=== PATIENT | male | born 1950 | race Caucasian/White ===

== ENCOUNTER 2024-05-03 09:33 | Outpatient (AMB) | payer OTHER, SELFPAY ==
[2024-05-03 09:36] VITALS: BP 110/70; PULSE 70; O2SAT 96; BMI 25.4
--- NOTE | 2024-05-03 09:36 | MHC.PC.OV ---
Vital Signs 05/03/24 09:36 Height 5 ft 9 in Weight 172 lb 0.4 oz BMI 25.4 BP 110/70 Blood Pressure Location Lt brachial Position Sitting Pulse 70 Pulse Source Pulse Oximeter Pulse Oximetry (%) 96 Oxygen Delivery Method Room Air Intake Visit Reasons: establish care Allergies No Known Allergies Allergy (Verified 05/03/24 09:54) Medication List - Last Reconciled 05/03/24 by Nichelle Quiñones PA-C aspirin 81 mg PO DAILY atorvastatin 80 mg PO BEDTIME bupropion HCl XL 300 mg PO DAILY dapagliflozin propanediol (Farxiga) 10 mg PO DAILY fluticasone propionate 50 mcg/actuation 1 spray intranasal DAILY leflunomide 10 mg PO DAILY levothyroxine 50 mcg PO DAILY metoprolol succinate ER 25 mg PO DAILY omeprazole magnesium (Prilosec OTC) 20 mg PO DAILY sacubitril-valsartan 49-51 mg (Entresto) 1 tab PO BID sertraline 200 mg PO DAILY ticagrelor (Brilinta) 90 mg PO BID Tobacco use date assessed: 05/03/24 Fall risk assessment: No Falls in past year Last assessed Fall Risk: 05/03/24 Dental Screening Dental Screen Date: 05/03/24 Did you have a dental visit in the last 12 months?: Yes Did you have a dental problem in the last 6 months where you did not have access to dental care?: No Was dental information given to patient?: Patient has dentist HPI establish care HPI Details 73-year-old female coming to the office with the 1st time. Patient was previously being seen by PCP in [facility] where he used to reside. Patient recently moved to [place]. He had a heart attack in February and has been following with [facility] Cardiology status post stent placement. He will be seeing them again on and has had blood work completed by their office. He mentions he has a history of rheumatoid arthritis and has chronic left knee osteoarthritis and previously received gel injections for this concern as well as physical therapy. He is interested in repeat injections and possible replacement. 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 He had a colonoscopy with endoscopy 4 years ago and was advised to follow up in 10 years. He also has a history of psoriasis which he uses steroid creams for. [facility] Surgical History S/P coronary artery stent placement Family History Sister Cancer Social History Housing: House Patient Tobacco Use Status: Former Tobacco user Tobacco use type: Cigarette service: No Current occupational status: retired Cognitive needs: No Hearing needs: No Vision needs: No Questionnaire PHQ-9 Over the last 2 weeks, how often have you been bothered by any of the following problems? 1. Little interest or pleasure in doing things: not at all 2. Feeling down, depressed, or hopeless: not at all 3. Trouble falling or staying asleep, or sleeping too much: not at all 4. Feeling tired or having little energy: not at all 5. Poor appetite or overeating: not at all 6. Feeling bad about yourself - or that you are a failure or have let yourself or your family down: not at all 7. Trouble concentrating on things, such as reading the newspaper or watching television: not at all 8. Moving or speaking so slowly that other people could have noticed. Or the opposite - being so fidgety or restless that you have been moving around a lot more than usual: not at all 9. Thoughts that you would be better off or of hurting yourself in some way: not at all Total score: 0 Depression Screening Interpretation: Negative Depression Screening Done: Yes 82522 - PHQ-9 Billing: Yes Source: Developed by Drs. Jordan Londono, Claudia Quezada, Gilberto Bruno and colleagues, with an educational tariq from [employer]. Thrive Questionnaire I am a: Patient What is your living situation today?: I have a steady place to live Within the past 12 months, did the food you bought not last and you didn't have the money to get more?: Never true Within the past 12 months, did you worry whether your food would run out before you got money to buy more?: Never true Do you have trouble paying for medicines?: No Do you have trouble getting transportation to medical appointments?: No Do you have trouble paying your heating and electricity bill?: No Do you have trouble taking care of your child, family member or friend?: No Do you have trouble with day-to-day activities such as bathing, preparing meals, shopping, managing finances, etc.?: No Are you currently unemployed and looking for a job?: No Are you interested in more education?: No Please select the resources that you would like help with: None Currently or been in a relationship where the following occur: No concerns reported THRIVE Score: 0 AUDIT C Alcohol Use Questionnaire (AUDIT-C) 1. How often do you have a drink containing alcohol?: Never 3. How often do you have six or more drinks on one occasion?: Never Total Score: 0 AUGUSTO-7 AMB Questionnaire AUGUSTO-7 Date AUGUSTO - 7 assessed: 05/03/24 Feeling nervous, anxious, or on edge: 0 = Not at all Not being able to stop or control worryin = Not at all Worrying too much about different things: 0 = Not at all Trouble relaxin = Not at all Being so restless that it is hard to sit still: 0 = Not at all Becoming easily annoyed or irritable: 0 = Not at all Feeling afraid as if something awful might happen: 0 = Not at all Total AUGUSTO-7 score (0-4 normal; 5-9 mild; 10-14 moderate; 15-21 severe): 0 Source: Developed by Drs. Jordan Londono, Claudia Quezada, Gilberto Bruno and colleagues, with an educational tariq from [employer]. AUGUSTO-7 Assessment Billing AUGUSTO-7 Assessment Tool: AUGUSTO-7 Assessment 38842 Review of Systems Const Denies body aches, Denies fatigue, Denies fever(s), Denies frequent falls, Denies headache(s) and Denies weakness Eyes Reports no additional complaints and Denies change in vision ENT Reports Normal hearing present, Denies dysphagia, Denies dizziness, Denies facial pain, Denies headache(s), Denies nasal congestion and Denies odynophagia Card Denies chest pain, Denies syncope, Denies irregular heart rhythm, Denies leg edema, Denies lightheadedness and Denies dyspnea Resp Denies cough and Denies dyspnea GI Denies constipation, Denies dysphagia, Denies dyspepsia, Denies diarrhea, Denies nausea, Denies odynophagia and Denies vomiting Denies urinary frequency, Denies dysuria, Denies urinary hesitancy and Denies urinary urgency Musc Denies back pain and Denies myalgias Skin/Breast Reports system reviewed and no additional complaints, except as documented Neuro Reports Normal hearing present, Denies dizziness, Denies syncope, Denies frequent falls, Denies headache(s) and Denies weakness Psych Reports no additional complaints Endo Denies fatigue Physical exam (Primary Care) Vital Signs: Last Vital Signs Pulse 70 05/03/24 09:36 BP 110/70 05/03/24 09:36 Pulse Ox 96 05/03/24 09:36 Oxygen Delivery Method Room Air 05/03/24 09:36 BMI result Body Mass Index 25.4 Tobacco/Smoking Status: Tobacco use Status Tobacco use date assessed 05/03/24 05/03/24 09:48 Patient Tobacco Use Status Former Tobacco user 05/03/24 09:48 Tobacco use type Cigarette 05/03/24 09:48 PHQ-9: PHQ-9 Score PHQ-9: Total score 0 05/03/24 09:58 Depression Screening Interpretation: Negative Currently or been in a relationship where the following occur: No concerns reported Const General: cooperative, healthy appearing, comfortable and no acute distress Orientation/consciousness: patient oriented x3 HENMT Head: Yes normocephalic Ears: hearing grossly normal bilaterally General nose exam: Normal external nose present Eyes General: appearance normal, both eyes and all related structures Conjunctivae: conjunctivae normal Neck Neck: Yes full ROM and Yes no lymphadenopathy Resp Effort & Inspection: normal respiratory effort Auscultation: clear to auscultation bilaterally, no crackles, no rales, no rhonchi and no wheezes Cardio Rate: regular rate Rhythm: regular rhythm Skin General skin exam: no rashes or lesions noted Neuro General: patient oriented x3 Cranial nerves: Yes Normal hearing present Gait exam (Neuro): Normal gait present Extrem General: Yes normal to inspection, Yes full ROM and No edema Psych Affect: normal affect Attitude: cooperative Insight: Good insight present (Psych) Judgement: Good judgement present (Psych) Coding Level of Care Code New Pt Level 4 (77765) Diagnoses Myocardial infarction I21.9 Rheumatoid arthritis M06.9 Hypercholesterolemia E78.00 Hypertension I10 Hypothyroid E03.9 Depression F32.A Hallux valgus (acquired) M20.10 Bilateral foot pain M79.671; M79.672 Left knee pain M25.562 Psoriasis L40.9 Additional Codes AUGUSTO-7 Assessment Billing - AUGUSTO-7 Assessment Tool: AUGUSTO-7 Assessment 03187 ([id number]) PHQ-9 - 40790 - PHQ-9 Billing: Yes ([id number]) Assessment & Plan Assessment & Plan (1) Myocardial infarction: Comment: January 2024 with stent placement Code(s): I21.9 - Acute myocardial infarction, unspecified Category: Medical Plan: Currently following with [facility] Cardiology and being seen this . We will request these notes continue on current medication and continue with aggressive cholesterol, blood pressure and blood sugar control. (2) Rheumatoid arthritis: Code(s): M06.9 - Rheumatoid arthritis, unspecified Category: Medical Plan: Referral placed to Rheumatology for continuation of care presently on leflunomide. (3) Hypercholesterolemia: Code(s): E78.00 - Pure hypercholesterolemia, unspecified Category: Medical Plan: Avoid foods that are high in cholesterol such as red meat, fried foods, eggs and baked goods. Triglyceride goal of less than 150 and LDL goal of less than 70. Continue on atorvastatin 80 (4) Hypertension: Code(s): I10 - Essential (primary) hypertension Category: Medical Plan: Continue on current blood pressure medication. Avoid salt intake and encourage healthy diet and regular exercise. (5) Hypothyroid: Code(s): E03.9 - Hypothyroidism, unspecified Category: Medical Plan: We will continue to monitor thyroid labs and presently on levothyroxine 50 mcg (6) Depression: Code(s): F32.A - Depression, unspecified Category: Medical Plan: History of depression and anxiety feels symptoms are well managed at this time currently on sertraline 200 mg and Wellbutrin 300 mg. (7) Hallux valgus (acquired): Code(s): M20.10 - Hallux valgus (acquired), unspecified foot Category: Medical Plan: Referral placed to Podiatry for pain management and possible surgical correction. Wears custom orthotics. (8) Bilateral foot pain: Code(s): M79.671 - Pain in right foot; M79.672 - Pain in left foot Category: Medical Plan: Wears custom orthotics and advised to follow up with Podiatry. (9) Left knee pain: Code(s): M25.562 - Pain in left knee Category: Medical Plan: Patient having chronic left knee pain worsening over the last several months. History of gel injections and physical therapy with very mild improvement. Referral placed to Orthopedics and ordered for left knee x-ray. (10) Psoriasis: Code(s): L40.9 - Psoriasis, unspecified Category: Medical Plan: Patient has a history of psoriasis and uses steroid creams. Declines Dermatology at this time. Plan This note was constructed using voice recognition software. While every effort has been made to ensure accuracy and planting machine crewman, still areas may have been included sometimes these areas may affect the content or meeting of the given symptoms. Total time spent caring for the patient today was 30 minutes. This includes time spent before the visit reviewing the chart, time spent during the visit, and time spent after the visit and documentation. Orders: Orders XR knee LT 3V Today M25.562 - Pain in left knee Referrals Podiatry Referral M20.10 - Hallux valgus (acquired), unspecified foot, M79.671 - Pain in right foot, M79.672 - Pain in left foot Orthopedics Referral M25.562 - Pain in left knee Rheumatology Referral M06.9 - Rheumatoid arthritis, unspecified Optometry Referral Z00.00 - Encounter for general adult medical examination without abnormal findings
== END 2024-05-03 10:16 | disposition home or self-care (01) ==
DX: I21.9 Acute myocardial infarction, unspecified (principal); M06.9 Rheumatoid arthritis, unspecified; E78.00 Pure hypercholesterolemia, unspecified; I10 Essential (primary) hypertension; E03.9 Hypothyroidism, unspecified; F32.A Depression, unspecified; M20.10 Hallux valgus (acquired), unspecified foot; M79.671 Pain in right foot; M79.672 Pain in left foot; M25.562 Pain in left knee; L40.9 Psoriasis, unspecified

== ENCOUNTER → 2024-05-03 09:33 | Outpatient (BNVA) | payer MEDICARE, OTHER, SELFPAY | DX: I21.9 Acute myocardial infarction, unspecified (principal); M06.9 Rheumatoid arthritis, unspecified; E78.00 Pure hypercholesterolemia, unspecified; E03.9 Hypothyroidism, unspecified; I10 Essential (primary) hypertension; F32.A Depression, unspecified; M20.10 Hallux valgus (acquired), unspecified foot; L40.9 Psoriasis, unspecified | CPT/HCPCS: 96127; 99202 ==

== ENCOUNTER 2024-05-06 12:19 | Outpatient (REF) | payer OTHER, SELFPAY | END 2024-05-06 12:20 | disposition home or self-care (01) | LOC: HO.XRAY 12:19 | DX: M25.562 Pain in left knee (principal) | CPT/HCPCS: 73562 ==

== ENCOUNTER 2024-05-19 10:08 | Outpatient (REF) | payer MEDICARE, OTHER, SELFPAY | END 2024-05-19 10:09 | disposition home or self-care (01) | LOC: HO.HOSX 10:08 | PROVIDERS: Visit Provider Physician Assistant | DX: M25.562 Pain in left knee (principal); M25.561 Pain in right knee; M17.12 Unilateral primary osteoarthritis, left knee | CPT/HCPCS: 20610; 73565; 99202; J1010; J2003 ==

== ENCOUNTER 2024-05-19 10:44 | Outpatient (AMB) | payer MEDICARE, OTHER, SELFPAY ==
[2024-05-19 11:08] VITALS: BMI 25.4
--- NOTE | 2024-05-19 11:08 | A.OFFVIS_ITS ---
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 He expresses pain and weakness when ambulating and using stairs. He has tried gel injections as well as cortisone injections. Patient states he was going to cardio PT at [facility] but he had to stop due to his knee pain. Denies prior injuries or surgeries to the left knee. Allergies No Known Allergies Allergy (Verified 05/19/24 11:09) Medication List - Last Reconciled 05/19/24 by Yamini Davey PA-C aspirin 81 mg PO DAILY atorvastatin 80 mg PO BEDTIME bupropion HCl XL 300 mg PO DAILY dapagliflozin propanediol (Farxiga) 10 mg PO DAILY fluticasone propionate 50 mcg/actuation 1 spray intranasal DAILY leflunomide 10 mg PO DAILY levothyroxine 50 mcg PO DAILY metoprolol succinate ER 25 mg PO DAILY omeprazole magnesium (Prilosec OTC) 20 mg PO DAILY sacubitril-valsartan 49-51 mg (Entresto) 1 tab PO BID sertraline 200 mg PO DAILY ticagrelor (Brilinta) 90 mg PO BID HPI HPI 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 He denies any left knee injury in the past. He states he has weakness and worsening pain at the anterior aspect or medial aspect of his knee that is aggravated with ambulation and stair use. He has tried gel and cortisone injection in the past. He reports he was going to ?cardio physical therapy? at [facility] but he had to stop due to his knee pain. He does not have a history of diabetes. He also had a heart attack in January, underwent a STENT placement and is currently in cardiac rehab. [facility] Surgical History S/P coronary artery stent placement Family History Sister Cancer Social History Housing: House Patient Tobacco Use Status: Former Tobacco user Tobacco use type: Cigarette service: No Current occupational status: retired Cognitive needs: No Hearing needs: No Vision needs: No Review of Systems Const All systems reviewed & are unremarkable except as noted in HPI and below Physical Exam Vital Signs: BMI result Body Mass Index 25.4 Const General: cooperative, healthy appearing, comfortable, no acute distress, well developed and alert Orientation/consciousness: patient oriented x3 HEENT Head: Yes normal to inspection, Yes normocephalic and Yes atraumatic Eyes General: appearance normal, both eyes and all related structures Resp Effort & Inspection: normal respiratory effort and able to speak in complete sentences Cardio Rate: regular rate Peripheral pulses: Peripheral pulses 2+ throughout GI Palpation (GI): Soft to palpation Skin Lesions: no lesions Rashes: no rashes Neuro General: patient oriented x3 Extrem Other: Left knee: Skin intact, no erythema or joint effusion. Tenderness along the medial joint line. Full ROM with crepitus. Negative Daniel?s. No ligamentous laxity. NVI. Office Procedures AMB Joint Injection/Aspiration Joint Injection/Aspiration Primary Site: left knee Prep: site was prepped using aseptic technique, ethochloride spray was applied and injection warnings given Injected: 80 mg of, DepoMedrol, with 8 mL of, 1% plain lidocaine and in the joint Approach Used: anterolateral Procedure: The patient tolerated the procedure well and there was some relief with the local anesthesia Coding 86687 - Glenohumeral/Tronchanteric Bursa/Intraarticular Procedure code (CPT) selection complete Results Reviewed Results Reviewed: Xrays were obtained in the office today and personally reviewed by me of the left knee show medial and PF compartment oa Assessment & Plan Assessment & Plan (1) Osteoarthritis of left knee: Code(s): M17.12 - Unilateral primary osteoarthritis, left knee Category: Medical Plan We discussed options today, which include steroid injection. The patient did consent to move forward with the left knee injection, which was tolerated well. I recommended rest, ice, and elevation and OTC anti-inflammatories as needed for discomfort. We will also get him approved for gel injection. If symptoms persist or worsens over the next 6-8 weeks, patient will contact the office as we did briefly discuss TKA, which he does feel he will proceed with at some point, otherwise he will follow-up as needed. Orders: Orders XR knee standing BI Today M25.561 - Pain in right knee, M25.562 - Pain in left knee Patient Instructions: Scribed for Yamini Davey PA-C, by Nicholas Brewer biomedical instrument technician, on 05/19/2024 at 11:00 AM EST.? I, Yamini Davey PA-C, have personally reviewed and agree with the information entered by the scribe. Coding Level of Care Code New Pt Level 3 (97275) Complex EM visit Add On G2211 Diagnoses Osteoarthritis of left knee M17.12 CPT Codes Coding - Joint 7: 66251 - Glenohumeral/Tronchanteric Bursa/Intraarticular ([id number])
== END 2024-05-19 11:38 | disposition home or self-care (01) ==
PROVIDERS: Visit Provider Physician Assistant
DX: M17.12 Unilateral primary osteoarthritis, left knee (principal)
CPT/HCPCS: 20610; 99203

== ENCOUNTER 2024-06-29 09:46 | Outpatient (AMB) | payer MEDICARE, OTHER, SELFPAY ==
--- NOTE | 2024-06-29 09:48 | A.OFFVIS_ITS ---
Vital Signs 06/29/24 09:52 Height 5 ft 9 in Weight 172 lb BMI 25.4 Intake Visit Reasons: INJ LT knee Durolane injection Intake Note: Perez is a 74 year old male who presents today for a left knee Durolane injection. Allergies No Known Allergies Allergy (Verified 06/29/24 09:55) HPI HPI INJ LT knee Durolane injection: Details: 74-year-old gentleman presents to the office today for left knee drilling injection. He mentions he continues to have significant limitations in the left knee which is interfering with his ability to perform daily activities. [facility] Surgical History S/P coronary artery stent placement Family History Sister Cancer Social History Housing: House Patient Tobacco Use Status: Former Tobacco user Tobacco use type: Cigarette service: No Current occupational status: retired Cognitive needs: No Hearing needs: No Vision needs: No Review of Systems Const All systems reviewed & are unremarkable except as noted in HPI and below Physical Exam Vital Signs: BMI result Body Mass Index 25.4 Const General: cooperative, healthy appearing, comfortable, no acute distress, well developed and alert Orientation/consciousness: patient oriented x3 HEENT Head: Yes normal to inspection, Yes normocephalic and Yes atraumatic Eyes General: appearance normal, both eyes and all related structures Resp Effort & Inspection: normal respiratory effort and able to speak in complete sentences Cardio Rate: regular rate Peripheral pulses: Peripheral pulses 2+ throughout GI Palpation (GI): Soft to palpation Skin Lesions: no lesions Rashes: no rashes Neuro General: patient oriented x3 Extrem Other: Left knee: Skin intact, no erythema or joint effusion. Tenderness along the medial joint line. Full ROM with crepitus. Negative Daniel?s. No ligamentous laxity. NVI. Office Procedures AMB Joint Injection/Aspiration Joint Injection/Aspiration Details: Durolane Primary Site: left knee Prep: site was prepped using aseptic technique, ethochloride spray was applied and injection warnings given Injected: in the joint Approach Used: anterolateral Procedure: The patient tolerated the procedure well Coding 20700 - Glenohumeral/Tronchanteric Bursa/Intraarticular Procedure code (CPT) selection complete Assessment & Plan Assessment & Plan (1) Osteoarthritis of left knee: Code(s): M17.12 - Unilateral primary osteoarthritis, left knee Category: Medical Plan: Left knee was injected today which the patient tolerated well. He will increase activities as tolerated as symptoms allow. He is interested in pursuing left total knee arthroplasty. I discussed moving forward we will have our nurse navigator reach out to him to discuss and have him meet with Dr. Crum. All questions answered. Coding Level of Care Code Est Pt Level 3 (09000) Complex EM visit Add On G2211 Diagnoses Osteoarthritis of left knee M17.12 CPT Codes Coding - Joint 7: 85905 - Glenohumeral/Tronchanteric Bursa/Intraarticular ([id number])
[2024-06-29 09:52] VITALS: BMI 25.4
== END 2024-06-29 10:08 | disposition home or self-care (01) ==
PROVIDERS: Visit Provider Physician Assistant
DX: M17.12 Unilateral primary osteoarthritis, left knee (principal)
CPT/HCPCS: 20610; 99213; G2211

== ENCOUNTER → 2024-06-29 09:46 | Outpatient (BNVA) | payer MEDICARE, OTHER, SELFPAY | PROVIDERS: Visit Provider Physician Assistant | DX: M17.12 Unilateral primary osteoarthritis, left knee (principal) | CPT/HCPCS: 20610; 99212; J7318 ==

== ENCOUNTER 2024-08-03 07:58 | Outpatient (AMB) | payer MEDICARE, OTHER, SELFPAY ==
--- NOTE | 2024-08-03 08:12 | MHC.PC.OV ---
Vital Signs 08/03/24 08:14 Height 5 ft 9 in Weight 172 lb 2 oz BMI 25.4 BP 120/70 Blood Pressure Location Lt brachial Position Sitting Temp 97.1 F Temp Source Temporal Artery Scan Intake Visit Reasons: f/u blood work/ HTN Intake Note: Patient is here to follow up on HTN. 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 Required: No Ruby Rails Developer: Not Required per policy Accompanied by: Self / Same As Patient Allergies No Known Allergies Allergy (Verified 08/03/24 08:14) Medication List - Last Reconciled 08/03/24 by Nichelle Quiñones PA-C aspirin 81 mg PO DAILY atorvastatin 80 mg PO BEDTIME bupropion HCl XL 300 mg PO DAILY dapagliflozin propanediol (Farxiga) 10 mg PO DAILY fluticasone propionate 50 mcg/actuation 1 spray intranasal DAILY leflunomide 10 mg PO DAILY levothyroxine 50 mcg PO DAILY metoprolol succinate ER 200 mg PO DAILY omeprazole magnesium (Prilosec OTC) 20 mg PO DAILY sacubitril-valsartan 97-103 mg (Entresto) 1 tab PO BID sertraline 200 mg PO DAILY spironolactone 12.5 mg PO DAILY ticagrelor (Brilinta) 90 mg PO BID Tobacco use date assessed: 08/03/24 Fall risk assessment: No Falls in past year Last assessed Fall Risk: 08/03/24 Dental Screening Dental Screen Date: 08/03/24 Did you have a dental visit in the last 12 months?: Yes Did you have a dental problem in the last 6 months where you did not have access to dental care?: No Was dental information given to patient?: Patient has dentist HPI f/u blood work/ HTN HPI Details 74-year-old male with past medical history of myocardial infarction, depression, hypothyroid, hypertension, hypercholesterolemia, rheumatoid arthritis and psoriasis last seen 04/2024 coming in for follow up. In review of the notes, patient was seen by [facility] 06/2024 for left knee osteoarthritis had an injection and scheduled to discuss possible left knee replacement. Patient was last seen by Cardiology 03/23/2024 started on Farxiga 10 mg daily and Entresto twice daily. Presenting with a follow-up for management of heart failure and associated chronic conditions. Heart failure medications were titrated to maximum dosage last seen in March. Awaiting further cardiology assessment. Stable weight at 172 pounds over recent months, daily weight monitoring is consistent. Occasional orthopnea reported but generally no significant dyspnea or chest pain. Anxiety and depression symptoms are stable with the current psychiatric medication, with patient-reported mood improvement. [facility] Surgical History S/P coronary artery stent placement Family History Sister Cancer Social History Housing: House Alcohol intake: never Patient Tobacco Use Status: Former Tobacco user Tobacco use type: Cigarette e-Cigarette/Vaping Use: Never Used Second Hand Smoke Exposure: Yes service: No Current occupational status: retired Cognitive needs: Yes (cane) Hearing needs: No Vision needs: Yes (Glasses) Questionnaire PHQ-9 Over the last 2 weeks, how often have you been bothered by any of the following problems? 1. Little interest or pleasure in doing things: not at all 2. Feeling down, depressed, or hopeless: not at all 3. Trouble falling or staying asleep, or sleeping too much: not at all 4. Feeling tired or having little energy: not at all 5. Poor appetite or overeating: not at all 6. Feeling bad about yourself - or that you are a failure or have let yourself or your family down: not at all 7. Trouble concentrating on things, such as reading the newspaper or watching television: not at all 8. Moving or speaking so slowly that other people could have noticed. Or the opposite - being so fidgety or restless that you have been moving around a lot more than usual: not at all 9. Thoughts that you would be better off or of hurting yourself in some way: not at all Total score: 0 Depression Screening Interpretation: Negative Depression Screening Done: Yes Source: Developed by Drs. Jordan Londono, Claudia Quezada, Gilberto Bruno and colleagues, with an educational tariq from [employer]. Thrive Questionnaire Date Thrive assessed: 08/03/24 I am a: Patient What is your living situation today?: I have a steady place to live Within the past 12 months, did the food you bought not last and you didn't have the money to get more?: Never true Within the past 12 months, did you worry whether your food would run out before you got money to buy more?: Never true Do you have trouble paying for medicines?: No Do you have trouble getting transportation to medical appointments?: No Do you have trouble paying your heating and electricity bill?: No Do you have trouble taking care of your child, family member or friend?: No Do you have trouble with day-to-day activities such as bathing, preparing meals, shopping, managing finances, etc.?: No Are you currently unemployed and looking for a job?: No Are you interested in more education?: No Please select the resources that you would like help with: None Currently or been in a relationship where the following occur: No concerns reported THRIVE Score: 0 AUDIT C Alcohol Use Questionnaire (AUDIT-C) 1. How often do you have a drink containing alcohol?: Never Total Score: 0 AUGUSTO-7 AMB Questionnaire AUGUSTO-7 Date AUGUSTO - 7 assessed: 08/03/24 Feeling nervous, anxious, or on edge: 0 = Not at all Not being able to stop or control worryin = Not at all Worrying too much about different things: 0 = Not at all Trouble relaxin = Not at all Being so restless that it is hard to sit still: 0 = Not at all Becoming easily annoyed or irritable: 0 = Not at all Feeling afraid as if something awful might happen: 0 = Not at all Total AUGUSTO-7 score (0-4 normal; 5-9 mild; 10-14 moderate; 15-21 severe): 0 Source: Developed by Drs. Jordan Londono, Claudia Quezada, Gilberto Bruno and colleagues, with an educational tariq from [employer]. Review of Systems Const Denies body aches, Denies chills, Denies fever(s), Denies headache(s) and Denies poor appetite Eyes Reports no additional complaints ENT Denies dizziness and Denies headache(s) Card Denies chest pain, Denies syncope, Denies edema, Denies irregular heart rhythm, Denies lightheadedness and Denies dyspnea Resp Denies cough and Denies dyspnea GI Denies abdominal pain, Denies constipation, Denies diarrhea, Denies nausea and Denies vomiting Reports no additional complaints Musc Reports no additional complaints and Denies abnormal gait Skin/Breast Reports system reviewed and no additional complaints, except as documented Neuro Denies abnormal gait, Denies dizziness, Denies syncope and Denies headache(s) Psych Reports no additional complaints Physical exam (Primary Care) Tobacco/Smoking Status: Tobacco use Status Tobacco use date assessed 05/03/24 08/03/24 08:12 Patient Tobacco Use Status Former Tobacco user 08/03/24 08:12 Tobacco use type Cigarette 08/03/24 08:12 Depression Screening Interpretation: Negative Thrive Assessment: Date of Thrive Assessment Date Thrive assessed 08/03/24 08/03/24 08:12 Currently or been in a relationship where the following occur: No concerns reported Const General: cooperative, healthy appearing, comfortable and no acute distress Orientation/consciousness: patient oriented x3 HENMT Head: Yes normocephalic Ears: hearing grossly normal bilaterally General nose exam: Normal external nose present Eyes General: appearance normal, both eyes and all related structures Conjunctivae: conjunctivae normal Neck Neck: Yes full ROM and Yes no lymphadenopathy Resp Effort & Inspection: normal respiratory effort Auscultation: clear to auscultation bilaterally, no crackles, no rales, no rhonchi and no wheezes Cardio Rate: regular rate Rhythm: regular rhythm Skin General skin exam: no rashes or lesions noted Neuro General: patient oriented x3 Gait exam (Neuro): Normal gait present Extrem General: Yes normal to inspection, Yes full ROM and No edema Psych Affect: normal affect Attitude: cooperative Insight: Good insight present (Psych) Judgement: Good judgement present (Psych) Coding Level of Care Code Est Pt Level 3 (53940) Diagnoses Myocardial infarction I21.9 Osteoarthritis of left knee M17.12 Hypercholesterolemia E78.00 Hypertension I10 Hypothyroid E03.9 Depression F32.A Rheumatoid arthritis M06.9 Heart failure I50.9 Assessment & Plan Assessment & Plan (1) Myocardial infarction: Comment: inferoposterior RI 01/21/2024 status post PCI of the distal RCA on 01/22/2024 with daily in the distal RCA extending into the proximal PDA Code(s): I21.9 - Acute myocardial infarction, unspecified Category: Medical Plan: Currently following with [facility] advised to continue on aspirin indefinitely and ticagrelor until January 2025. Continue with aggressive blood pressure management with Entresto and metoprolol, cholesterol management with atorvastatin 80 mg with LDL goal less than 70. Patient was also started on Farxiga for management of heart failure. (2) Osteoarthritis of left knee: Code(s): M17.12 - Unilateral primary osteoarthritis, left knee Category: Medical Plan: Patient currently following with [facility] having injections of the knee and having discussion with Dr. Crum about possible total knee replacement. (3) Hypercholesterolemia: Code(s): E78.00 - Pure hypercholesterolemia, unspecified Category: Medical Plan: Avoid foods that are high in cholesterol such as red meat, fried foods, eggs and baked goods. Triglyceride goal of less than 150 and LDL goal of less than 70. Continue on atorvastatin 80 mg. Ordered for updated blood work (4) Hypertension: Code(s): I10 - Essential (primary) hypertension Category: Medical Plan: Continue on current blood pressure medication. Avoid salt intake and encourage healthy diet and regular exercise. Per last cardiology note patient to continue on metoprolol and Entresto (5) Hypothyroid: Code(s): E03.9 - Hypothyroidism, unspecified Category: Medical Plan: On levothyroxine 50 mcg continue to monitor blood work. (6) Depression: Code(s): F32.A - Depression, unspecified Category: Medical Plan: Feels symptoms are well managed with sertraline and Wellbutrin (7) Rheumatoid arthritis: Code(s): M06.9 - Rheumatoid arthritis, unspecified Category: Medical Plan: Has a appointment in September with Rheumatology currently on leflunomide (8) Heart failure: Code(s): I50.9 - Heart failure, unspecified Category: Medical Plan: As advised by Cardiology, Farxiga 10 mg daily, Entresto added to regimen, spironolactone in the morning encouraged low potassium diet and daily weights. Plan The patient's management plan includes ongoing monitoring of heart failure stability, with maximum medication titration achieved; a cardiology appointment should be followed for echocardiogram assessment. Patient was informed and verbally consented to the use of an ambient scribe for clinic note documentation during this visit. This note was constructed using voice recognition software. While every effort has been made to ensure accuracy and assembler truck trailer, still areas may have been included sometimes these areas may affect the content or meeting of the given symptoms. Total time spent caring for the patient today was 20 minutes. This includes time spent before the visit reviewing the chart, time spent during the visit, and time spent after the visit and documentation. Orders: Orders Comprehensive Met. Panel Today I21.9 - Acute myocardial infarction, unspecified, Z00.00 - Encounter for general adult medical examination without abnormal findings TSH reflex Free T4 Today I21.9 - Acute myocardial infarction, unspecified, Z00.00 - Encounter for general adult medical examination without abnormal findings Hemoglobin A1c Today E11.65 - Type 2 diabetes mellitus with hyperglycemia, I21.9 - Acute myocardial infarction, unspecified Free T4 (Free Thyroxine) Today I21.9 - Acute myocardial infarction, unspecified, Z00.00 - Encounter for general adult medical examination without abnormal findings Complete Blood Count Auto Diff Today I21.9 - Acute myocardial infarction, unspecified, Z00.00 - Encounter for general adult medical examination without abnormal findings Lipid Panel Today E78.00 - Pure hypercholesterolemia, unspecified, I21.9 - Acute myocardial infarction, unspecified Vitamin B12 and Folate Today I21.9 - Acute myocardial infarction, unspecified, Z00.00 - Encounter for general adult medical examination without abnormal findings Vitamin D 25-OH Total Today I21.9 - Acute myocardial infarction, unspecified, Z00.00 - Encounter for general adult medical examination without abnormal findings
[2024-08-03 08:14] VITALS: BP 120/70; TEMP 36.2; BMI 25.4
== END 2024-08-03 08:42 | disposition home or self-care (01) ==
DX: M06.9 Rheumatoid arthritis, unspecified (principal); I11.0 Hypertensive heart disease with heart failure; I50.9 Heart failure, unspecified; I25.2 Old myocardial infarction; M17.12 Unilateral primary osteoarthritis, left knee; E78.00 Pure hypercholesterolemia, unspecified; E03.9 Hypothyroidism, unspecified; F32.A Depression, unspecified

== ENCOUNTER → 2024-08-03 07:58 | Outpatient (BNVA) | payer MEDICARE, OTHER, SELFPAY | DX: I21.9 Acute myocardial infarction, unspecified (principal); M17.12 Unilateral primary osteoarthritis, left knee; E78.00 Pure hypercholesterolemia, unspecified; F32.A Depression, unspecified; E03.9 Hypothyroidism, unspecified; M06.9 Rheumatoid arthritis, unspecified; I11.0 Hypertensive heart disease with heart failure; I50.9 Heart failure, unspecified | CPT/HCPCS: 99212 ==

== ENCOUNTER 2024-08-11 09:39 | Outpatient (AMB) | payer MEDICARE, OTHER, SELFPAY ==
--- NOTE | 2024-08-11 09:41 | A.OFFVIS_ITS ---
Vital Signs 08/11/24 09:42 Height 5 ft 9 in Weight 172 lb BMI 25.4 Intake Visit Reasons: L TKA Discussion: L Knee Durolane Inj 06/29/24 TM Intake Note: Perez is a 74 year old male who presents today to discuss Left Total Knee Arthroplasty. Patient was last seen with Yamini Davey who injected the Left Knee with Durolane on 06/29/24. Patient reports that he did have some mild relief with the gel injection but he is continuing to have difficulty with ambulation and pain. He taked Tylenol PRN pain but this is not providing adequate relief. Allergies No Known Allergies Allergy (Verified 08/03/24 08:14) HPI HPI L TKA Discussion: L Knee Durolane Inj 06/29/24 TM: Details: This is a 74 yo M with left knee OA. He is unable to walk more than 50 feet wihtout pain and a worsening limp. He wants to ba able to walk Comfortably. He wants to be able to walk as a form of exercise for both his mental and physical health. He is unable to do that. He uses a cane. He has been having problems for years. He has done physical therapy he has had gel injections and he has had steroid injections but he is still debilitated. He did have a heart attack in January of 2024. His seed district sales manager told him that may consider surgery no sooner than 6 months after his coronary event. He takes aspirin as a blood thinner but otherwise no anticoagulation. [facility] Surgical History S/P coronary artery stent placement Family History Sister Cancer Social History Housing: House Alcohol intake: never Patient Tobacco Use Status: Former Tobacco user Tobacco use type: Cigarette e-Cigarette/Vaping Use: Never Used Second Hand Smoke Exposure: Yes service: No Current occupational status: retired Cognitive needs: Yes (cane) Hearing needs: No Vision needs: Yes (Glasses) Physical Exam Vital Signs: BMI result Body Mass Index 25.4 Extrem Other: 0-125 varus knee wiht 1+ varus instability and ttp medial joint line. +gait antalgia Results Reviewed Results Reviewed: I personally reviewed relevant radiographs. Severe varus pattern knee OA on the left. Assessment & Plan Assessment & Plan (1) Osteoarthritis of left knee: Code(s): M17.12 - Unilateral primary osteoarthritis, left knee Category: Medical Plan: This is a 74 yo M who has severe OA of the left knee. He is unable to walk and he has pain with minimal ambulation. He feels limited frustrated that he can not walk even 5 minutes. Conservative management has not helped and I recommend knee replacement. He has history of rheumatoid arthritis and a myocardial infarction approximately 6 months ago. We will obviously need cardiac clearance. Pending that evaluation he is otherwise relatively low risk. I discussed the risks, benefits and alternatives with him including, but not limited to, the risk of infection, blood clots, cardiopulmonary complications, stiffness, need further surgery, pain. He expressed understanding and we will have our nurse navigator reach out and begin the preoperative clearance process. Coding Level of Care Code Est Pt Level 4 (54085) Diagnoses Osteoarthritis of left knee M17.12
[2024-08-11 09:42] VITALS: BMI 25.4
== END 2024-08-11 10:12 | disposition home or self-care (01) ==
PROVIDERS: Visit Provider Orthopaedic Surgery
DX: M17.12 Unilateral primary osteoarthritis, left knee (principal)
CPT/HCPCS: 99214

== ENCOUNTER → 2024-08-11 09:39 | Outpatient (BNVA) | payer MEDICARE, OTHER, SELFPAY | PROVIDERS: Visit Provider Orthopaedic Surgery | DX: M17.12 Unilateral primary osteoarthritis, left knee (principal) | CPT/HCPCS: 99212 ==

== ENCOUNTER 2024-08-16 10:51 | Outpatient (REF) | payer MEDICARE, OTHER, SELFPAY ==
[2024-08-16 11:11] LABS: MANUAL DIFF FLAG NO
[2024-08-16 11:59] LABS: Basophils Percent Auto 0.8 % (0-2); Eosinophils Absolute Auto 0.1 X10*3/uL (0.0-0.4); Eosinophils Percent Auto 2.3 % (0-4); Hematocrit 43.1 % (42.0-52.0); Hemoglobin 14.6 g/dl (14.0-18.0); Imm Gran Abs Auto 0.04 X10*3/uL (0.00-0.03); Imm Gran Pct Auto 0.8 % (0.0-0.4); Lymphocytes Absolute Auto 0.6 X10*3/uL (1.2-4.9); Lymphocytes Percent Auto 13.5 % (20-40); Mean Corpuscular HGB Conc 33.9 g/dl (31.0-36.0); Mean Corpuscular Hemoglobin 31.1 pg (27.0-33.0); Mean Corpuscular Volume 91.7 fL (80.0-98.0); Mean Platelet Volume 12.5 fL (9.4-12.4); Monocytes Absolute Auto 0.4 X10*3/uL (0.1-1.2); Monocytes Percent Auto 7.4 % (2-11); Neutrophils Absolute Auto 3.6 x10*3/uL (2.0-8.3); Neutrophils Percent Auto 75.2 % (45-73); Platelet Count 127 X10*3/uL (160-400); Red Cell Distribution Width 16.6 % (11.0-16.0); White Blood Count 4.7 X10*3/uL (4.8-10.8)
[2024-08-16 12:33] LABS: Estimated Average Glucose 103 mg/dL; Hemoglobin A1C 129.4259 umol/L; Hemoglobin A1c % 5.2 % (<6.0)
[2024-08-16 12:38] LABS: Alanine Aminotransferase 26 U/L (0-40); Albumin Level 4.3 g/dL (3.5-5.0); Alkaline Phosphatase 58 U/L (39-117); Anion Gap 12 (12-20); Aspartate Amino Transferase 26 U/L (5-37); Bilirubin Total 0.7 mg/dL (0.0-1.0); Blood Urea Nitrogen 15 mg/dL (9-16); Calcium 9.1 mg/dL (8.4-10.2); Carbon Dioxide 27 mmol/L (22-29); Chloride 101 mmol/L (96-108); Cholesterol 95 mg/dL (<200); Estimated Glomerular Filt Rate > 60; Free T4 (Free Thyroxine) 0.95 ng/dL (0.71-1.85); Glucose Random 91 mg/dL (60-115); HDL Cholesterol 32 mg/dL (>40); LDL Cholesterol Calculated 52 mg/dL (<100); Potassium 4.6 mmol/L (3.3-5.1); Sodium 135 mmol/L (135-145); TSH reflex Free T4 3.07 uIU/mL (0.32-4.0); Total Protein 7.3 g/dL (6.5-8.0); Triglycerides 56 mg/dL (<150); Vitamin D 25-OH Total 46.3 ng/mL (>30)
[2024-08-16 12:51] LABS: Folate 9.3 ng/mL (> or = 4.0); Vitamin B12 877 pg/mL (200-900)
== END 2024-08-16 10:52 | disposition home or self-care (01) ==
LOC: HO.LAB 10:51
DX: Z00.00 Encounter for general adult medical examination without abnormal findings (principal); I21.9 Acute myocardial infarction, unspecified; E78.00 Pure hypercholesterolemia, unspecified; E11.65 Type 2 diabetes mellitus with hyperglycemia
CPT/HCPCS: 36415; 80053; 80061; 82306; 82607; 82746; 83036; 84439; 84443; 85025

== ENCOUNTER 2024-09-06 11:30 | Outpatient (AMB) | payer MEDICARE, OTHER, SELFPAY ==
--- NOTE | 2024-09-06 11:34 | A.OFFPC_ITS ---
Vital Signs 09/06/24 11:38 Height 5 ft 9 in Weight 175 lb BMI 25.8 BP 130/66 Blood Pressure Location Lt brachial Position Sitting Pulse 70 Pulse Source Pulse Oximeter Temp 96.9 F Temp Source Temporal Artery Scan Pulse Oximetry (%) 96 Oxygen Delivery Method Room Air Intake Visit Reasons: L TKA w/Dr. Crum 10/26/24 Intake Note: Patient is here for a Pre-op for L TKA scheduled with Dr Crum on 10/26/24. Sales Performance Analyst Required: No Reliability Manager: Not Required per policy Accompanied by: Self / Same As Patient Allergies No Known Allergies Allergy (Verified 09/06/24 11:39) Medication List - Last Reconciled 09/06/24 by Nichelle Quiñones PA-C aspirin 81 mg PO DAILY atorvastatin 80 mg PO BEDTIME bupropion HCl XL 300 mg PO DAILY dapagliflozin propanediol (Farxiga) 10 mg PO DAILY fluticasone propionate 50 mcg/actuation 1 spray intranasal DAILY leflunomide 10 mg PO DAILY levothyroxine 50 mcg PO DAILY metoprolol succinate ER 200 mg PO DAILY omeprazole magnesium (Prilosec OTC) 20 mg PO DAILY sacubitril-valsartan 97-103 mg (Entresto) 1 tab PO BID sertraline 200 mg PO DAILY spironolactone 12.5 mg PO DAILY ticagrelor (Brilinta) 90 mg PO BID walker Folding Front wheeled walker duration 99 days Tobacco use date assessed: 09/06/24 Fall risk assessment: No Falls in past year Last assessed Fall Risk: 09/06/24 Dental Screening Dental Screen Date: 08/03/24 HPI L TKA w/Dr. Crum 10/26/24 HPI Details 74-year-old male with past medical histo ry of myocardial infarction, depression, hypothyroid, hypertension, hypercholesterolemia, rheumatoid arthritis and psoriasis last seen 07/2024 coming in for preoperative exam.?Patient is scheduled to have left total knee arthroscopy with Dr. Crum 10/26/2024. Heart failure: Currently following the [facility] has a appointment for Cardiology clearance September 27 Hypertension: Well controlled 130/66 presently on Entresto and Metoprolol Patient does have history of [place] 01/2024 following with [facility] cardiology. He has no history of CVA, CHF or DM. [facility] Surgical History S/P coronary artery stent placement Family History Sister Cancer Social History Housing: House Alcohol intake: never Patient Tobacco Use Status: Former Tobacco user Tobacco use type: Cigarette Years Smoked: quit 35 years ago e-Cigarette/Vaping Use: Never Used Second Hand Smoke Exposure: Yes service: No Current occupational status: retired Cognitive needs: Yes (cane) Hearing needs: No Vision needs: Yes (Glasses) Questionnaire Thrive Questionnaire Date Thrive assessed: 08/03/24 AUGUSTO-7 AMB Questionnaire AUGUSTO-7 Date AUGUSTO - 7 assessed: 08/03/24 Source: Developed by Drs. Jordan Londono, Claudia Quezada, Gilberto Bruno and colleagues, with an educational tariq from [employer]. Review of Systems Const Denies body aches, Denies chills, Denies fever(s), Denies headache(s) and Denies poor appetite Eyes Reports no additional complaints ENT Denies dizziness and Denies headache(s) Card Denies chest pain, Denies syncope, Denies edema, Denies irregular heart rhythm, Denies lightheadedness and Denies dyspnea Resp Denies cough and Denies dyspnea GI Denies abdominal pain, Denies diarrhea, Denies nausea and Denies vomiting Reports no additional complaints Musc Details: left knee pain Denies abnormal gait Skin/Breast Reports system reviewed and no additional complaints, except as documented Neuro Denies abnormal gait, Denies dizziness, Denies syncope and Denies headache(s) Psych Reports no additional complaints Physical exam (Primary Care) Tobacco/Smoking Status: Tobacco use Status Tobacco use date assessed 08/03/24 09/06/24 11:36 Patient Tobacco Use Status Former Tobacco user 09/06/24 11:36 Tobacco use type Cigarette 09/06/24 11:36 e-Cigarette/Vaping Use Never Used 09/06/24 11:36 Thrive Assessment: Date of Thrive Assessment Date Thrive assessed 08/03/24 09/06/24 11:36 Const General: cooperative, healthy appearing, comfortable and no acute distress Orientation/consciousness: patient oriented x3 HENMT Head: Yes normocephalic Ears: hearing grossly normal bilaterally General nose exam: Normal external nose present Eyes General: appearance normal, both eyes and all related structures Conjunctivae: conjunctivae normal Neck Neck: Yes full ROM and Yes no lymphadenopathy Resp Effort & Inspection: normal respiratory effort Auscultation: clear to auscultation bilaterally, no crackles, no rales, no rhonchi and no wheezes Cardio Rate: regular rate Rhythm: regular rhythm Skin General skin exam: no rashes or lesions noted Neuro General: patient oriented x3 Gait exam (Neuro): Normal gait present Extrem General: Yes normal to inspection, Yes full ROM and No edema Psych Affect: normal affect Attitude: cooperative Insight: Good insight present (Psych) Judgement: Good judgement present (Psych) Coding Level of Care Code Est Pt Level 4 (00025) Diagnoses Pre-op exam Z01.818 Assessment & Plan Assessment & Plan (1) Pre-op exam: Code(s): Z01.818 - Encounter for other preprocedural examination Category: Medical Plan: Regarding preop clearance, the patient is at moderate-high risk for proposed surgery due to age, comorbidities and history of recent cardiac event. Reviewed with the patient that no surgery is completely free of risk and that this examination is to assist the surgeon in reviewing informed consent. Patient is scheduled to have cardiac clearance September 27. Plan to review cardiology note at that time and will provide clearance via addendum to this note. At this time I have reviewed his most recent blood work and no additional workup is needed. Plan to await cardiology clearance. Plan This note was constructed using voice recognition software. While every effort has been made to ensure accuracy and labor operator, still areas may have been included sometimes these areas may affect the content or meeting of the given symptoms. Total time spent caring for the patient today was 30 minutes. This includes time spent before the visit reviewing the chart, time spent during the visit, and time spent after the visit and documentation. Medications: New triamcinolone acetonide 0.1% 1 appl topical DAILY 30 grams 0RF
[2024-09-06 11:38] VITALS: BP 130/66; PULSE 70; TEMP 36.1; O2SAT 96; BMI 25.8
== END 2024-09-06 12:05 | disposition home or self-care (01) ==
LOC: HO.HMCH 11:30
DX: Z01.818 Encounter for other preprocedural examination (principal)

== ENCOUNTER → 2024-09-06 11:30 | Outpatient (BNVA) | payer MEDICARE, OTHER, SELFPAY | DX: Z01.818 Encounter for other preprocedural examination (principal) | CPT/HCPCS: 99212 ==

== ENCOUNTER 2024-09-15 09:53 | Outpatient (AMB) | payer MEDICARE, OTHER, SELFPAY ==
--- NOTE | 2024-09-15 09:59 | A.OFFVIS_ITS ---
Vital Signs 09/15/24 10:06 Height 5 ft 9 in Weight 173 lb 11.588 oz BMI 25.7 BP 92/60 Blood Pressure Location Lt brachial Position Sitting Pulse 56 Pulse Source Pulse Oximeter Pulse Oximetry (%) 96 Oxygen Delivery Method Room Air Intake Visit Reasons: RA/ preop recommendations Intake Note: Patient presents today for RA and preop recommendations. Allergies No Known Allergies Allergy (Verified 09/15/24 10:03) HPI Comments Details: Patient is a 74-year-old male with depression, hypothyroidism, hypertension complicated by coronary artery disease status post STEMI with stenting 02/2024, heart failure with reduced ejection fraction, hyperlipidemia, diabetes, polyarticular osteoarthritis, rheumatoid arthritis and psoriasis here today to establish care Patient recently moved to [place] from [place]. Patient diagnosed with RA around 2004 Medications tried: hydroxychloroquine sulfasalazine methotrexate Xeljanz Enbrel - stopped about due to insurance issues Leflunomide since around 2019 PsO - Dx around 2014 - Non biopsy proven - Topical steroids Today Patient reports he is doing well overall on the leflunomide with no pain Only has intermittent knee pain L>R Previously received steroid and gel injections Last gel 04/2024 [facility] Surgical History S/P coronary artery stent placement Family History Sister Cancer Social History Housing: House Alcohol intake: never Patient Tobacco Use Status: Former Tobacco user Tobacco use type: Cigarette Years Smoked: quit 35 years ago e-Cigarette/Vaping Use: Never Used Second Hand Smoke Exposure: Yes service: No Current occupational status: retired Cognitive needs: Yes (cane) Hearing needs: No Vision needs: Yes (Glasses) Review of Systems Const Details: Review of Systems Constitutional: Denies fever, chills, weight loss ENT: Denies vision changes, eye pain or eye redness, dental caries, dry mouth GI: Denies nausea, vomiting, diarrhea, abdominal pain, change in BM Pulm: Denies SOB, MCDONOUGH, hemoptysis, wheezing Cards: Denies chest pain, palpitations Skin: Denies Raynaud's, rash, nail changes, photosensitivity, 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 Well appearing and in no apparent painful distress HEENT Conjunctiva and sclera clear. ?Pupils equal round and reactive to light. ?No lymphadenopathy. ? CHEST/RESPIRATORY SYSTEM Normal respiratory effort and able to speak in complete sentences. ?Clear to auscultation bilaterally. ?No crackles, rales, rhonchi, wheezes heard. CARDIAC SYSTEM Regular rate and rhythm. ?S1 and S2 heard no murmurs. ?Radial pulses intact bilaterally MSK Hands: ?Good emerging technologies director strength bilaterally. No deformities noted. ?No synovitis noted to the MCPs, PIPs or DIPs. ?No tenderness to palpation of these joints. Herbedens nodes Wrists: ?Full range of motion at the wrists without pain. ?No tenderness to palpation or synovitis noted to the wrists. Elbows: Full range of motion without pain. No tenderness, weakness, swelling, increased warmth or erythema. Shoulders: Full range of motion without pain. No tenderness, weakness, swelling, increased warmth or erythema. Hips: Full range of motion without pain. Hip bursa: No tenderness to palpation Knees: ?Full range of motion. ?No tenderness, swelling, increased warmth or erythema.?Crepitations felt Ankles: Full range of motion. ?No tenderness, swelling, increased warmth or erythema.? Feet: ?Negative squeeze test. ?No tenderness to palpation or swelling of the MTPs. Tender points:?No tenderness to palpation of the bilateral trapezius, supraspinatus, greater trochanters, anterior costochondral junctions, bilateral gluteal areas, bilateral suboccipital muscle insertions SKIN Skin intact without rashes. Results Reviewed Results Reviewed: Laboratory Tests 08/16/24 11:09 WBC 4.7 L RBC 4.70 Hgb 14.6 Hct 43.1 Plt Count 127 L Sodium 135 Potassium 4.6 Chloride 101 Carbon Dioxide 27 BUN 15 Creatinine 0.84 Total Bilirubin 0.7 AST 26 ALT 26 Alkaline Phosphatase 58 Total Protein 7.3 25-OH Vitamin D Total 46.3 Assessment & Plan Assessment & Plan (1) Rheumatoid arthritis: Comment: Patient diagnosed with RA around 2004 Medications tried: hydroxychloroquine sulfasalazine methotrexate Xeljanz Enbrel - stopped about due to insurance issues Leflunomide since around 2019 Code(s): M06.9 - Rheumatoid arthritis, unspecified Category: Medical Qualifiers: Rheumatoid arthritis location: multiple sites Rheumatoid factor presence: with rheumatoid factor Qualified Code(s): M05.79 - Rheumatoid arthritis with rheumatoid factor of multiple sites without organ or systems involvement Plan: #Rheumatoid arthritis Patient is a 74-year-old male with rheumatoid arthritis here today to establish care after [place]. Patient is currently in remission on leflunomide 10 mg. Plan - Leflunomide 10mg daily - RTC 5 months - Labs before visit: CBC, CMP, ESR, CRP, RF and CCP (2) Encounter for monitoring leflunomide therapy: Code(s): Z51.81 - Encounter for therapeutic drug level monitoring; Z79.69 - senior care (current) use of other immunomodulators and immunosuppressants Plan: #Long-term leflunomide Discussed with patient the benefits and risks of leflunomide for managing the rheumatic condition Benefits include: - Reduced pain, maintenance of remission and reduction of flares Risks include: - GI upset especially diarrhea, skin rash, cytopenias, hepatotoxicity, weight loss, neuropathy Leflunomide is highly teratogenic. ?Has a very long half-life. ?Needs cholestyramine washout if there is desire for Initiation: ?CBC, BMP, LFTs, hepatitis-B and C serologies every 2-4 weeks for 3 months Monitoring: ?CBC, BMP, LFTs, hepatitis B and C serologies Plan I spent 30 minutes reviewing the record and labs, taking a history, examining the patient, discussing the treatment plan, ordering diagnostic work up and documenting in the medical record Orders: Orders Cyclic Citrullinated Peptide 5 Months M05.79 - Rheumatoid arthritis with rheumatoid factor of multiple sites without organ or systems involvement, Z51.81 - Encounter for therapeutic drug level monitoring, Z79.69 - senior care (current) use of other immunomodulators and immunosuppressants Complete Blood Count Auto Diff 5 Months M05.79 - Rheumatoid arthritis with rheumatoid factor of multiple sites without organ or systems involvement, Z51.81 - Encounter for therapeutic drug level monitoring, 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) use of other immunomodulators and immunosuppressants C Reactive Protein 5 Months M05.79 - Rheumatoid arthritis with rheumatoid factor of multiple sites without organ or systems involvement, Z51.81 - Encounter for therapeutic drug level monitoring, Z79.69 - senior care (current) use of other immunomodulators and immunosuppressants Erythrocyte Sedimentation Rate 5 Months M05.79 - Rheumatoid arthritis with rheumatoid factor of multiple sites without organ or systems involvement, Z51.81 - Encounter for therapeutic drug level monitoring, Z79.69 - senior care (current) use of other immunomodulators and immunosuppressants Rheumatoid Factor 5 Months M05.79 - Rheumatoid arthritis with rheumatoid factor of multiple sites without organ or systems involvement, Z51.81 - Encounter for therapeutic drug level monitoring, 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
[2024-09-15 10:06] VITALS: BP 92/60; PULSE 56; O2SAT 96; BMI 25.7
== END 2024-09-15 10:27 | disposition home or self-care (01) ==
LOC: HO.RHE 09:54
PROVIDERS: Visit Provider Student in an Organized Health Care Education/Training Program
DX: M05.79 Rheumatoid arthritis with rheumatoid factor of multiple sites without organ or systems involvement (principal); Z51.81 Encounter for therapeutic drug level monitoring; Z79.69 Long term (current) use of other immunomodulators and immunosuppressants
CPT/HCPCS: 99203; G2211

== ENCOUNTER → 2024-09-15 09:53 | Outpatient (BNVA) | payer MEDICARE, OTHER, SELFPAY | PROVIDERS: Visit Provider Student in an Organized Health Care Education/Training Program | DX: M15.9 Polyosteoarthritis, unspecified (principal); M05.79 Rheumatoid arthritis with rheumatoid factor of multiple sites without organ or systems involvement; L40.9 Psoriasis, unspecified; Z51.81 Encounter for therapeutic drug level monitoring; Z79.69 Long term (current) use of other immunomodulators and immunosuppressants | CPT/HCPCS: 99202 ==

== ENCOUNTER → 2024-09-20 09:08 | Outpatient (BNVA) | payer MEDICARE, OTHER, SELFPAY | DX: Z01.818 Encounter for other preprocedural examination (principal) ==

== ENCOUNTER → 2024-10-10 13:09 | Outpatient (BNV) | payer MEDICARE, OTHER, SELFPAY | PROVIDERS: Visit Provider Internal Medicine Cardiovascular Disease | DX: R94.31 Abnormal electrocardiogram [ECG] [EKG] (principal) | CPT/HCPCS: 93010 ==

== ENCOUNTER 2024-10-20 09:02 | Outpatient (AMB) | payer MEDICARE, OTHER, SELFPAY ==
--- NOTE | 2024-10-20 09:17 | A.OFFVIS_ITS ---
Vital Signs 10/20/24 09:18 Height 5 ft 9 in Weight 170 lb BMI 25.1 Intake Visit Reasons: Pre-Op: L TKA w/NE 10/26/24 Intake Note: Perez is a 74 year old female male who presents today for a pre op appointment for his left TKA 10/26/24 NE. Patient was handed pain management agreement form. LABS! Allergies No Known Allergies Allergy (Verified 10/20/24 09:17) HPI HPI Pre-Op: L TKA w/NE 10/26/24: Details: Mr. Alvarez is a 74-year-old male who presents to the office today for his preoperative history and physical examination pending left total knee arthroplasty with Dr. Crum scheduled tentatively for 10/26/2024. PCP clearance with Nichelle Quiñones PA-C PCP clearance Rheumatology with Erin Barton MD Cardiac clarane with Heather Anne MD [facility] Medical History (Updated 10/10/24 @ 12:12 by Mariaelena King RN) Anesthesia complication Arthritis GERD (gastroesophageal reflux disease) COVID-19 Elevated cholesterol Rheumatoid arthritis Depression Myocardial infarction Psoriasis Hypothyroid HTN (hypertension) Osteoarthritis CHF (congestive heart failure) Surgical History (Updated 10/19/24 @ 13:38 by Hermila Hayward PA-C) History of esophagogastroduodenoscopy (EGD) H/O colonoscopy Hx of oral surgery S/P coronary artery stent placement Family History Sister Cancer Social History Household Members Other:: sister Housing: House Are you a primary resident care provider to a significant other at home: No Do you presently have visiting nurse or other home services: No Alcohol intake: never Comment: advised of trip hazard Patient Tobacco Use Status: Former Tobacco user Tobacco use type: Cigarette Years Smoked: 20 e-Cigarette/Vaping Use: Never Used Second Hand Smoke Exposure: Yes service: No Current occupational status: retired Cognitive needs: Yes (cane) Hearing needs: No Vision needs: Yes (Glasses) Review of Systems Const All systems reviewed & are unremarkable except as noted in HPI and below Physical Exam Vital Signs: BMI result Body Mass Index 25.1 Const General: cooperative, healthy appearing, comfortable, no acute distress, well developed, alert and awake Orientation/consciousness: patient oriented x3 HEENT Head: Yes normal to inspection, Yes normocephalic and Yes atraumatic Eyes General: appearance normal, both eyes and all related structures Neck Neck: Yes normal visual inspection and Yes no lymphadenopathy Resp Effort & Inspection: normal respiratory effort and able to speak in complete sentences Cardio Rate: regular rate Peripheral pulses: Peripheral pulses 2+ throughout GI Inspection: Yes normal to inspection Palpation (GI): Soft to palpation Skin General skin exam: no rashes or lesions noted Neuro General: patient oriented x3 Extrem Other: 0-125 varus knee wiht 1+ varus instability and ttp medial joint line. +gait antalgia Psych Mental Status: mental status grossly normal Assessment & Plan Assessment & Plan (1) Status post total knee replacement, left: Code(s): Z96.652 - Presence of left artificial knee joint Category: Surgical Plan Mr. Alvarez is a 74-year-old male who presents to the office today for his preoperative history and physical examination pending left total knee arthroplasty with Dr. Crum scheduled tentatively for 10/26/2024. PCP clearance with Nichelle Quiñones PA-C: The patient is at moderate to high risk for proposed surgery due to age comorbidities and history of recent cardiac event. Rheumatology clearance with Erin Barton MD: Patient will continue taking his Leuflunomide without interruption. No need to stop before surgery. Cardiac clearance with Heather Anne MD: Former smoker with a known case of CAD complicated by inferioposterior AL status post distal RCA PCI on 01/22/2024, ischemic cardiomyopathy with severely reduced LV systolic function. LVEF 25-30% with preserved RV systolic function 01/26/2024. Patient will continue taking aspirin 81 mg daily without interruption including day of surgery. Ticagrelor 3-5 days to be out of system, then back on PO Farxiga held for 3 days before Entresto held for 24 hours pre-op Patient may restart all meds on postoperative day 1 I discussed in detail the procedure and what to expect pre and post operatively. We discussed the risks, benefits and alternatives to the surgery as well as the rehabilitation course. The risks; which include, but are not limited to infection, bleeding, nerve injury, ongoing pain, swelling, and stiffness, perioperative risk of injury to bones and soft tissues, and blood clots. Then to attend outpatient physical therapy at core rehab here at the hospital. Patient plans to return home for [facility] rehab postoperatively. I?ve answered all questions and with their understanding they have consented to move forward with left total knee arthroplasty with Dr. Crum. Abimbola for DVT ppx Orders: Orders PT Evaluation and Treatment 10/19/24 Z96.652 - Presence of left artificial knee joint XR knee LT 3V Today M25.569 - Pain in unspecified knee Basic Metabolic Panel Today Z01.818 - Encounter for other preprocedural examination Complete Blood Count no Diff Today Z01.818 - Encounter for other preprocedural examination Coding Level of Care Code Global (55802) Diagnoses Status post total knee replacement, left Z96.652
[2024-10-20 09:18] VITALS: BMI 25.1
== END 2024-10-20 09:43 | disposition home or self-care (01) ==
LOC: HO.HOS 09:03
PROVIDERS: Visit Provider Physician Assistant
DX: Z96.652 Presence of left artificial knee joint (principal)
CPT/HCPCS: 99024

== ENCOUNTER → 2024-10-20 09:04 | Outpatient (BNV) | payer MEDICARE, OTHER, SELFPAY | PROVIDERS: Visit Provider Radiology Diagnostic Radiology | DX: M17.12 Unilateral primary osteoarthritis, left knee (principal) | CPT/HCPCS: 73562 ==

== ENCOUNTER 2024-10-20 09:47 | Outpatient (REF) | payer MEDICARE, OTHER, SELFPAY ==
--- NOTE | ~2024-10-20 | XR_ITS ---
EXAMINATION: XR KNEE, LEFT CLINICAL INFORMATION: M25.569 - Pain in unspecified knee COMPARISON: 05/19/2024. 05/06/2024. TECHNIQUE: AP view bilateral knees standing, lateral and patellofemoral views left knee. FINDINGS: RIGHT KNEE: No fracture, dislocation, or suspicious bone lesion. Mild medial and lateral compartment joint space narrowing. Mild spurring of the tibial spines. Normal soft tissues. LEFT KNEE: No fracture, dislocation, or suspicious bone lesion. Moderate to severe medial compartment and moderate lateral and patellofemoral compartment osteoarthrosis. Near [id number] appearance medial compartment. Mild varus angulation of the knee with mild widening of the lateral compartment. Spurring of the tibial spines. There is a small suprapatellar joint effusion. Soft tissues demonstrate early vascular calcifications but are otherwise normal. XR/XR knee LT 3V IMPRESSION: 1. Left knee demonstrating moderate to severe medial compartment osteoarthrosis, and moderate changes in the lateral and patellofemoral compartment. Small joint effusion. Electronically signed by: Pietro Al MD 10/20/2024 09:15 AM EDT
[2024-10-20 11:00] LABS: Hematocrit 36.6 % (42.0-52.0); Hemoglobin 12.4 g/dl (14.0-18.0); Mean Corpuscular HGB Conc 33.9 g/dl (31.0-36.0); Mean Corpuscular Hemoglobin 30.8 pg (27.0-33.0); Mean Platelet Volume 12.3 fL (9.4-12.4); Platelet Count 157 X10*3/uL (160-400); Red Blood Count 4.02 X10*6/uL (4.60-5.80); Red Cell Distribution Width 17.3 % (11.0-16.0); White Blood Count 4.1 X10*3/uL (4.8-10.8)
[2024-10-20 11:26] LABS: Anion Gap 11 (12-20); Blood Urea Nitrogen 15 mg/dL (9-16); Carbon Dioxide 22 mmol/L (22-29); Chloride 102 mmol/L (96-108); Estimated Glomerular Filt Rate > 60; Glucose Random 95 mg/dL (60-115); Potassium 4.4 mmol/L (3.3-5.1); Sodium 131 mmol/L (135-145)
== END 2024-10-20 09:48 | disposition home or self-care (01) ==
LOC: HO.HOSX 09:47
PROVIDERS: Visit Provider Physician Assistant
DX: Z01.818 Encounter for other preprocedural examination (principal); M25.562 Pain in left knee; T88.59XA Other complications of anesthesia, initial encounter
CPT/HCPCS: 36415; 73562; 80048; 85027; 99212

== ENCOUNTER → 2024-10-26 06:53 | Outpatient (BNV) | payer MEDICARE, OTHER, SELFPAY | PROVIDERS: Visit Provider Nurse Practitioner Family | DX: Z96.652 Presence of left artificial knee joint (principal) | CPT/HCPCS: 99223 ==

== ENCOUNTER → 2024-10-26 06:53 | Outpatient (BNV) | payer MEDICARE, OTHER, SELFPAY | PROVIDERS: Visit Provider Orthopaedic Surgery | DX: M17.12 Unilateral primary osteoarthritis, left knee (principal) | CPT/HCPCS: 27447; 99024 ==

== ENCOUNTER → 2024-10-26 09:40 | Outpatient (BNV) | payer MEDICARE, OTHER, SELFPAY | PROVIDERS: Visit Provider Radiology Diagnostic Radiology | DX: Z96.652 Presence of left artificial knee joint (principal) | CPT/HCPCS: 73560 ==

== ENCOUNTER → 2024-10-26 20:04 | Outpatient (BNV) | payer MEDICARE, OTHER, SELFPAY | PROVIDERS: Admitting Provider Orthopaedic Surgery; Visit Provider Internal Medicine Cardiovascular Disease | DX: I44.0 Atrioventricular block, first degree (principal) | CPT/HCPCS: 93010 ==

== ENCOUNTER 2024-10-27 07:44 | Inpatient (IN) | payer MEDICARE, OTHER, SELFPAY ==
--- NOTE | 2024-10-10 | ECG_ITS ---
Test Reason : preop Blood Pressure : */* mmHG Vent. Rate : 63 BPM Atrial Rate : 63 BPM P-R Int : 208 ms QRS Dur : 100 ms QT Int : 402 ms P-R-T Axes : 55 -26 -25 degrees QTcB Int : 411 ms Normal sinus rhythm Low voltage QRS Inferior infarct , age undetermined Abnormal ECG No previous ECGs available Referred By: Doris Nails Electronically Signed By: Apolinar Camp
[2024-10-10 12:17] VITALS: BP 84/50; PULSE 68; RESP 18; O2SAT 96; BMI 25.4
--- NOTE | 2024-10-10 12:37 | P.CONAN_ITS ---
Documented by User: Doris Nails NP 10/25/24 08:33 HPI - Anesthesia Eval Consult details Narrative: 74yo M for Left Knee Replacement Total, [facility]. Optimized to proceed with continuation of aspirin 81mg throughout peripop period. Ortho group aware per workloads Medically optimized per PCP +Covid 09/2024 - resolved except occassional clear, productive cough No CP/SOB with cardiac rehab ~ 3 x weekly RA: controlled on leflunomide - to continue in perioperative period BP low at PAT - pt to hold entresto and spironolactone DOS Anesthesia Pre-Procedure Meds Is the patient on any of the following meds?: SGLT2 Inhib PMFSH Active Problems Active Problems: All Active Problems Pre-op exam (Acute) Heart failure (Acute) Osteoarthritis of left knee (Acute) Psoriasis (Acute) Annual physical exam (Acute) Left knee pain (Acute) Bilateral foot pain (Acute) Hallux valgus (acquired) (Acute) Rheumatoid arthritis (Acute) Hypercholesterolemia (Acute) Hypertension (Acute) Hypothyroid (Acute) Depression (Acute) Myocardial infarction (Acute) Past Medical History Medical History Anesthesia complication Arthritis GERD (gastroesophageal reflux disease) COVID-19 Elevated cholesterol Rheumatoid arthritis Depression Myocardial infarction Psoriasis Hypothyroid HTN (hypertension) Osteoarthritis CHF (congestive heart failure) Family History Family History Sister Cancer Family history of problems with anesthesia: No Surgical History Surgical History History of esophagogastroduodenoscopy (EGD) H/O colonoscopy Hx of oral surgery S/P coronary artery stent placement History of Problems with Anesthesia: No Social History Social History Household Members Other:: sister Housing: House Are you a primary reproductive healthcare assistant to a significant other at home: No Do you presently have visiting nurse or other home services: No Alcohol intake: never Comment: advised of trip hazard Patient Tobacco Use Status: Former Tobacco user Tobacco use type: Cigarette Years Smoked: 20 e-Cigarette/Vaping Use: Never Used Second Hand Smoke Exposure: Yes Use of substances other than those prescribed or required for medical reasons: No Have you been hit, kicked, punched, or otherwise hurt by someone within the past year? If so, by whom?: No Spiritual Healthcare Practices: no Yazidi Healthcare Practices: no Cultural Healthcare Practices: no Are you DNR?: No Advance Directives: No (sister is primary contact) Advance Directives Information Provided: Yes (as above noted) Advance Directives on File: No Poor oral hygiene: No (permanent bridge) service: No Current occupational status: retired Cognitive needs: Yes (cane) Hearing needs: No Vision needs: Yes (Glasses) Meds Allergies Allergy/AdvReac Type Severity Reaction Status Date / Time No Known Allergies Allergy Verified 10/20/24 09:17 Home Medications ?Medication ?Instructions ?Recorded ?Confirmed ?Last Taken ?Type aspirin 81 mg tablet,delayed 81 mg PO QAM 05/03/24 10/26/24 10/26/24 History release atorvastatin 80 mg tablet 80 mg PO BEDTIME 05/03/24 10/26/24 10/25/24 History bupropion HCl 150 mg 24 hr tablet, 300 mg PO QAM 05/03/24 10/26/24 10/25/24 History extended release dapagliflozin propanediol 10 mg 10 mg PO QAM 05/03/24 10/26/24 10/21/24 History tablet (Farxiga) fluticasone propionate 50 1 spray intranasal [facility] 05/03/24 10/26/24 10/25/24 History mcg/actuation nasal spray,suspension levothyroxine 50 mcg tablet 50 mcg PO QAM 05/03/24 10/26/24 10/26/24 History omeprazole magnesium 20 mg 20 mg PO QAM 05/03/24 10/26/24 10/26/24 History tablet,delayed release (Prilosec OTC) sertraline 100 mg tablet 200 mg PO QAM 05/03/24 10/26/24 10/25/24 History ticagrelor 90 mg tablet (Brilinta) 90 mg PO BID 05/03/24 10/26/24 10/19/24 History metoprolol succinate 50 mg 200 mg PO QAM 06/29/24 10/26/24 10/26/24 History tablet,extended release 24 hr sacubitril 97 mg-valsartan 103 mg 1 tab PO BID 08/03/24 10/26/24 10/25/24 History tablet (Entresto) spironolactone 25 mg tablet 12.5 mg PO QAM 08/03/24 10/26/24 10/25/24 History leflunomide 10 mg tablet 10 mg PO QAM 10/10/24 10/26/24 10/25/24 History triamcinolone acetonide 0.1 % 1 appl topical DAILY PRN psoriasis 10/10/24 10/26/24 Unknown History topical cream Exam Height,Weight and Vital Signs: Height 5 ft 9 in Weight 78.018 kg Last Vital Signs Pulse 68 10/10/24 12:17 Resp 18 10/10/24 12:17 BP 84/50 L 10/10/24 12:17 Pulse Ox 96 10/10/24 12:17 O2 Del Method Room Air 10/10/24 12:17 Pertinent Lab Results Pertinent Lab Results: Lab Results 10/10/24 10/20/24 Range/Units 12:25 10:05 Nasal Screen MRSA (PCR) NEGATIVE (Negative) Nasal S. aureus Screen POSITIVE A (Negative) Nasal MRSA/S.aureus Interp SEE NOTE Blood Type B Positive Antibody Screen NEGATIVE Laboratory Tests 10/20/24 10:13 WBC 4.1 L Hgb 12.4 L Hct 36.6 L Plt Count 157 L Sodium 131 L Potassium 4.4 Chloride 102 Carbon Dioxide 22 BUN 15 Creatinine 0.85 Narrative Narrative: ECHO 10/2024 Summary -The left ventricle is normal in size and has mild concentric left ventricular hypertrophy. There is mild discrete upper septal thickening. The LV systolic function is moderately reduced with ejection fraction of 30-35%. There is akinesis with aneurysmal appearance of the mid-distal inferoseptal and anteroseptal reyes. Grade I, mild diastolic dysfunction with impaired LV relaxation. -The right ventricular size and function appears grossly normal. - Normal biatrial sizes. -There is mild aortic regurgitation. -There is mild mitral regurgitation. -The ascending aorta and aortic root are mildly dilated at 4.2cm (aortic size index 2.1cm/m2). -The inferior vena cava is poorly visualized. -There is no pericardial effusion. Comparison Comparison is made to the study of April 11, 2024. There is no significant change noted. EKG 09/2024 Vent. Rate : 63 BPM Atrial Rate : 63 BPM P-R Int : 208 ms QRS Dur : 100 ms QT Int : 402 ms P-R-T Axes : 55 -26 -25 degrees QTcB Int : 411 ms Normal sinus rhythm Low voltage QRS Inferior infarct , age undetermined Abnormal ECG No previous ECGs available Airway Mallampati Class: I TM Dist: >3cm Neck ROM: Full Loose/Missing/Broken Teeth: Yes (permanent bridge (small piece broken off), crowns throughout stable ) Heart: RRR Lungs: CTAB Assessment and Plan Assessment Anesthesia Assessment: Anesthesia Plan Discussed and PAT Visit Final Anesthetic Review Family History of Problems with Anesthesia: No History of Problems with Anesthesia: No Documented by User: Billie Salas MD 10/26/24 08:24 [facility] Past Medical History Medical History Anesthesia complication Arthritis GERD (gastroesophageal reflux disease) COVID-19 Elevated cholesterol Rheumatoid arthritis Depression Myocardial infarction Psoriasis Hypothyroid HTN (hypertension) Osteoarthritis CHF (congestive heart failure) Family History Family History Sister Cancer Surgical History Surgical History History of esophagogastroduodenoscopy (EGD) H/O colonoscopy Hx of oral surgery S/P coronary artery stent placement Social History Social History Household Members Other:: sister Housing: House Are you a primary reproductive healthcare assistant to a significant other at home: No Do you presently have visiting nurse or other home services: No Alcohol intake: never Comment: advised of trip hazard Patient Tobacco Use Status: Former Tobacco user Tobacco use type: Cigarette Years Smoked: 20 e-Cigarette/Vaping Use: Never Used Second Hand Smoke Exposure: Yes Use of substances other than those prescribed or required for medical reasons: No Have you been hit, kicked, punched, or otherwise hurt by someone within the past year? If so, by whom?: No Spiritual Healthcare Practices: no Yazidi Healthcare Practices: no Cultural Healthcare Practices: no Are you DNR?: No Advance Directives: No (sister is primary contact) Advance Directives Information Provided: Yes (as above noted) Advance Directives on File: No Poor oral hygiene: No (permanent bridge) service: No Current occupational status: retired Cognitive needs: Yes (cane) Hearing needs: No Vision needs: Yes (Glasses) Meds Allergies Allergy/AdvReac Type Severity Reaction Status Date / Time No Known Allergies Allergy Verified 10/20/24 09:17 Home Medications ?Medication ?Instructions ?Recorded ?Confirmed ?Last Taken ?Type aspirin 81 mg tablet,delayed 81 mg PO QAM 05/03/24 10/26/24 10/26/24 History release atorvastatin 80 mg tablet 80 mg PO BEDTIME 05/03/24 10/26/24 10/25/24 History bupropion HCl 150 mg 24 hr tablet, 300 mg PO QAM 05/03/24 10/26/24 10/25/24 History extended release dapagliflozin propanediol 10 mg 10 mg PO QAM 05/03/24 10/26/24 10/21/24 History tablet (Farxiga) fluticasone propionate 50 1 spray intranasal QA 05/03/24 10/26/24 10/25/24 History mcg/actuation nasal spray,suspension levothyroxine 50 mcg tablet 50 mcg PO QAM 05/03/24 10/26/24 10/26/24 History omeprazole magnesium 20 mg 20 mg PO QAM 05/03/24 10/26/24 10/26/24 History tablet,delayed release (Prilosec OTC) sertraline 100 mg tablet 200 mg PO QAM 05/03/24 10/26/24 10/25/24 History ticagrelor 90 mg tablet (Brilinta) 90 mg PO BID 05/03/24 10/26/24 10/19/24 History metoprolol succinate 50 mg 200 mg PO QAM 06/29/24 10/26/24 10/26/24 History tablet,extended release 24 hr sacubitril 97 mg-valsartan 103 mg 1 tab PO BID 08/03/24 10/26/24 10/25/24 History tablet (Entresto) spironolactone 25 mg tablet 12.5 mg PO QAM 08/03/24 10/26/24 10/25/24 History leflunomide 10 mg tablet 10 mg PO QAM 10/10/24 10/26/24 10/25/24 History triamcinolone acetonide 0.1 % 1 appl topical DAILY PRN psoriasis 10/10/24 10/26/24 Unknown History topical cream Assessment and Plan Assessment Anesthesia Assessment: Chart Reviewed Final Anesthetic Review ASA Class: III Final Preanesthetic Review: No Changes in Pt Med Stat, Meds/Allgs Chart Reviewed, Consent Obtained/Reviewed and Anes Risks/Benef Reviewed Patient Risk: Intermediate Procedure Risk: Intermediate Anesthetic Plan Anesthetic Plan: Spinal, Regional Block and Agree w/ Assess. and Plan Disposition: Standard PACU
[2024-10-10 14:40] LABS: MRSA Nasal PCR NEGATIVE (Negative); SA Nasal PCR POSITIVE (Negative)
[2024-10-26] VITALS (36 sets, daily range): BP systolic 75–114; BP diastolic 36–74; PULSE 51–72; RESP 16–18; TEMP 36.3–37.4; O2SAT 93–99; BMI 24.7; BMI 28.6
--- NOTE | 2024-10-26 | ECG_ITS ---
Test Reason : hypotension Blood Pressure : */* mmHG Vent. Rate : 60 BPM Atrial Rate : 60 BPM P-R Int : 226 ms QRS Dur : 98 ms QT Int : 384 ms P-R-T Axes : 19 -20 -61 degrees QTcB Int : 384 ms Sinus rhythm with 1st degree A-V block Inferior infarct (cited on or before 10-Oct-2024) Abnormal ECG When compared with ECG of 10-Oct-2024 13:09, No significant change was found Referred By: Kemi Clement Electronically Signed By: DOMINIQUE YOO MD
--- NOTE | 2024-10-26 07:25 | MHC.SHP ---
Pre-Procedural Eval Section A - 24 Hr Update-Section A only Date of Service: 10/26/24 The patient is an INPATIENT: No Changes since office visit: No Cold of Flu in the past 2 weeks, No New Medical Problems, No Changes in Medication and No Patient answered all questions The patient has been examined within 24 hours of the surgical procedure. The History & Physical has been completed within 30 days and I have reviewed it.: Yes Section B - Complete if H&P > 30 days Chief Complaint: lt tka Allergies: Allergies Allergy/AdvReac Type Severity Reaction Status Date / Time No Known Allergies Allergy Verified 10/20/24 09:17 Plan I have reviewed the history and physical and performed a pertinent physical examination on my patient. No changes have occurred unless specified. Time Spent With Patient Time: Total time managing care of this patient today ____ minutes.
[2024-10-26] MEDS: Lactated Ringers 1,000 ML 50 ML IVCONT (07:49)
[2024-10-26] MEDS: ceFAZolin Sodium/Dextrose,Iso 2 GM/50 ML PIGGYBACK IV ×2 (09:19→16:40)
[2024-10-26] MEDS: Acetaminophen 1,000 MG/100 ML PIGGYBACK 400 MG IV (09:24)
--- NOTE | 2024-10-26 09:55 | PHA.MEDREC ---
Pharmacy Consult ? Medication Reconciliation Pharmacy has completed the medication reconciliation. Followed up on med rec done by nursing. Matches claims and previous Dr visit instructions.
--- NOTE | 2024-10-26 10:57 | P.BOP_ITS ---
Brief Operative Note Date of Service: 10/26/24 Pre-op diagnosis: Left knee OA Post-op diagnosis: same Procedure: Left TKA Implants: [place] [employer] posterior stabilized cemented 11/18/12TS/a Surgeon: Tray Crum MD Was an Core Blower Operator used for this Procedure?: Yes Core Blower Operator: Hermila Hayward Estimated blood loss (mL): 20 Tourniquet time (min): 60 IV fluids (mL): 1,000 Pathology: none sent Condition: stable Disposition: PACU
[2024-10-26] MEDS: Phenylephrine HCL 20 MG in 0.9 % Sodium Chloride 250 ML 11.48 MG IVCONT (14:53)
[2024-10-26 15:06] LABS: Hematocrit 33.4 % (42.0-52.0); Hemoglobin 11.4 g/dl (14.0-18.0); Mean Corpuscular HGB Conc 34.1 g/dl (31.0-36.0); Mean Corpuscular Hemoglobin 31.4 pg (27.0-33.0); Mean Platelet Volume 11.9 fL (9.4-12.4); Platelet Count 138 X10*3/uL (160-400); Red Blood Count 3.63 X10*6/uL (4.60-5.80); Red Cell Distribution Width 17.4 % (11.0-16.0); White Blood Count 8.2 X10*3/uL (4.8-10.8)
--- NOTE | 2024-10-26 16:05 | HO.ANESEVENT ---
Anesthesia Event Note Date of Service: 10/26/24 Event Note: Mr. Alvarez is in PACU with hypotension (BP 80s/50s) following TKA under spinal anesthesia. The patient has known CMOP with EF 30s% according to what he tells me was the result of the echo he had a few weeks ago. A Hgb drawn postop in PACU was 11; preop Hb on 10/20/2024 was 12. The patient was started on a phenylephrine drip, with BP now 119/51/73 on dev drip at 0.5 ug. I echo'ed him. Image quality was fair. Findings: Mod-severe gloabal hypok with EF 25-35%. Part of the apex looked severely hypo/akinetic. LV is not dilated. RV is prob normal sized, with normal systolic fxn. No AI; could not evaluate for . 1+ MR, 1+ TR. CW doppler jet measured 2.2 m/sec. Unable to get any useful subcostal or IVC views. RVSP estimate is 19+CVP. Overall, this echo is consistent with reports of his prev echo. We'll do a fluid challenge. At 17:16: We shut off the dev drip at 1600. At 1615, started a 400cc bolus. After the first 200cc, BP mati immed to 114/63, but then slowly drifted down to the 80's. Giving another bolus now. He's breathing easy, Sat 96% on room air, no JVD at 45?.
[2024-10-26] MEDS: Lactated Ringers 400 ML 2400 ML IV ×2 (16:30→17:09)
[2024-10-26] MEDS: Lactated Ringers 1,000 ML 100 ML IVCONT ×2 (16:50→18:55)
[2024-10-26] MEDS: Acetaminophen 325 MG TABLET 650 MG PO (17:03)
--- NOTE | 2024-10-26 19:04 | P.CONHOSP_ITS ---
History of Present Illness Data of Consult Service Date: 10/26/24 Requesting physician: Hermila Hayward Primary Care Provider: Nichelle Quiñones PA-C HPI Reason for consult: Medical Management Pt is a 74 yo male with PMH HFrEF on entresto, HLD, Hypotension, RA, OA, Depression, GERD, recent DE and PCI on Brilinta, Psoriasis is being seen today on consultation for medical managment after undergoing L TKA today with Dr. Crum. Pt states he has no specific medical concerns today except to state that his BP has been running low since before surgery and pt states his mixer wet pour is aware. Pt has to be cautious to not try and stand up too fast or pt will experience mild dizziness. Pt deneis any near syncope episodes or falls. Plan per pre op documentation from outside providers was for pt to resume ticagrelor (if permitted by surgery), continue leflunomide and usual home medications. Review of Systems 2 Review of Systems: Pt denies any chest pain, SOB at rest or with exertion, abdominal pain, N/V, dizziness or lightheadedness. Pt denies L knee pain currently. Pt does not complain of PEPE, visual changes or loss of sensation in affected limb. Yes all other systems are reviewed and are negative PMFSH Medical History Anesthesia complication Arthritis GERD (gastroesophageal reflux disease) COVID-19 Elevated cholesterol Rheumatoid arthritis Depression Myocardial infarction Psoriasis Hypothyroid HTN (hypertension) Osteoarthritis CHF (congestive heart failure) Cognitive capacity: A/O X3 Functional capacity: wheelchair bound (s/p surgery ) Family History Sister Cancer Surgical History History of esophagogastroduodenoscopy (EGD) H/O colonoscopy Hx of oral surgery S/P coronary artery stent placement Social History Household Members: Family Household Members Other:: sister Housing: House Are you a primary resident caregiver to a significant other at home: No Do you presently have visiting nurse or other home services: No Alcohol intake: never Comment: COUNTS CORRECT Patient Tobacco Use Status: Former Tobacco user Tobacco use type: Cigarette Years Smoked: 20 e-Cigarette/Vaping Use: Never Used Second Hand Smoke Exposure: Yes Use of substances other than those prescribed or required for medical reasons: No Have you been hit, kicked, punched, or otherwise hurt by someone within the past year? If so, by whom?: No Do you feel safe in your current relationship?: No Current Relationship Is there a partner from a previous relationship who is making you feel unsafe now?: No Are you made to feel afraid or neglected: No Spiritual Healthcare Practices: no Voodoo Healthcare Practices: no Cultural Healthcare Practices: no Are you DNR?: No Advance Directives: No (sister is primary contact) Advance Directives Information Provided: Yes (as above noted) Advance Directives on File: No Do you have a plan to hurt others: No Plan Recently lost weight without trying: No Eating poorly because of decreased appetite: No Nutrition Risks: No Nutritional Risk Poor oral hygiene: No (permanent bridge) service: No Current occupational status: retired Cognitive needs: Yes (cane) Hearing needs: No Vision needs: Yes (Glasses) Ebola Risk: Travel/Contact With Anyone From Affected Area/s: No Has Patient Experienced Ebola Symptoms: No Meds Allergies Allergy/AdvReac Type Severity Reaction Status Date / Time No Known Allergies Allergy Verified 10/20/24 09:17 Active Medications: Current Medications Acetaminophen (Acetaminophen 325 Mg Tablet) 650 mg PO Q6H PRN PRN Reason: Pain, Mild 1-3,fever,headache Last Admin: 10/26/24 17:03 Dose: 650 mg Atorvastatin Calcium (Atorvastatin Calcium 80 Mg Tablet) 80 mg PO BEDTIME [facility] Bupropion HCl (Bupropion Hcl Xl 300 Mg Tab.Er.24h) 300 mg PO DAILY [facility] Last Admin: 10/26/24 18:47 Dose: Not Given Celecoxib (Celecoxib 200 Mg Capsule) 200 mg PO BID [facility] Last Admin: 10/26/24 18:47 Dose: Not Given Docusate Sodium (Docusate Sodium 100 Mg Capsule) 100 mg PO BID [facility] Last Admin: 10/26/24 18:47 Dose: Not Given Enoxaparin Sodium (Enoxaparin Sodium 40 Mg/0.4 Ml Syringe) 40 mg SUBCUT Q24H [facility] Fluticasone Propionate (Fluticasone Propionate Nasal 16 Gm [place]) 1 spray NOSTRIL-B DAILY [facility] Last Admin: 10/26/24 18:47 Dose: Not Given Hydromorphone HCl (Hydromorphone Hcl 0.5 Mg/0.5 Ml Syringe) 0.25 mg IVPUSH Q4H PRN; Protocol PRN Reason: Pain, Severe (Pain Scale 7-10) Lactated Ringer's (Lr) 1,000 mls @ 50 mls/hr IVCONT .Q20H [facility] Last Infusion: 10/26/24 16:00 Dose: Infused Lactated Ringer's (Lr) 1,000 mls @ 100 mls/hr IVCONT .Q10H [facility] Last Admin: 10/26/24 18:55 Dose: 100 mls/hr Phenylephrine HCl 20 mg/ (Sodium Chloride) 252 mls @ 0 mls/hr IVCONT .Q0M [facility]; Protocol Last Admin: 10/26/24 14:53 Dose: 0.2 mcg/kg/min, 11.48 mls/hr Leflunomide (Leflunomide 10 Mg Tablet) 10 mg PO DAILY [facility] Last Admin: 10/26/24 18:47 Dose: Not Given Levothyroxine Sodium (Levothyroxine Sodium 50 Mcg Tablet) 50 mcg PO DAILY@0600 [facility] Magnesium Hydroxide (Milk Of Magnesia 30 Ml Oral.Susp) 30 ml PO DAILY PRN PRN Reason: Constipation Melatonin (Melatonin 3 Mg Tablet) 6 mg PO BEDTIME PRN PRN Reason: Insomnia Metoprolol Succinate (Metoprolol Succinate Er 100 Mg Tab.Er.24h) 200 mg PO DAILY [facility]; Protocol Last Admin: 10/26/24 18:47 Dose: Not Given Naloxone HCl (Naloxone Hcl 0.4 Mg/Ml Vial) 0.04 mg IVPUSH Q5M PRN PRN Reason: Excessive sedation or RR < 8 Non-Formulary Medication (Dapagliflozin Propanediol [Farxiga]) 10 mg PO QAM [facility] Omeprazole (Omeprazole 20 Mg Capsule.Dr) 20 mg PO DAILY@0630 [facility] Ondansetron HCl (Ondansetron Hcl 4 Mg/2 Ml Vial) 4 mg IVPUSH Q8H PRN PRN Reason: Nausea and Vomiting Oxycodone HCl (Oxycodone Hcl Immed Release 5 Mg Tablet) 5 mg PO Q4H PRN PRN Reason: Pain, Moderate(Pain Scale 4-6) Oxycodone HCl (Oxycodone Hcl Er 10 Mg Tab.Er.12h) 10 mg PO BID [facility] Last Admin: 10/26/24 18:47 Dose: Not Given Sacubitril/Valsartan (Sacubitril/Valsartan 97/103 1 Tab Tablet) 1 tab PO BID [facility]; Protocol Last Admin: 10/26/24 18:48 Dose: Not Given Sertraline HCl (Sertraline Hcl 100 Mg Tablet) 200 mg PO DAILY [facility] Last Admin: 10/26/24 18:48 Dose: Not Given Sodium Chloride (0.9 % Sodium Chloride Flush 3 Ml Syringe) 3 ml IVFLUSH QSHIFT [facility] Last Admin: 10/26/24 18:46 Dose: Not Given Spironolactone (Spironolactone 25 Mg Tablet) 12.5 mg PO DAILY [facility]; Protocol Ticagrelor (Ticagrelor 90 Mg Tablet) 90 mg PO BID [facility] Last Admin: 10/26/24 18:48 Dose: Not Given Triamcinolone Acetonide (Triamcinolone Acet 0.1 % Cream 15 Gm Tube) 1 appl TOPICAL DAILY PRN; Protocol PRN Reason: psoriasis Home Medications ?Medication ?Instructions ?Recorded ?Confirmed ?Last Taken ?Type aspirin 81 mg tablet,delayed 81 mg PO [facility] 05/03/24 10/26/24 10/26/24 History release atorvastatin 80 mg tablet 80 mg PO BEDTIME 05/03/24 10/26/24 10/25/24 History bupropion HCl 150 mg 24 hr tablet, 300 mg PO [facility] 05/03/24 10/26/24 10/25/24 History extended release dapagliflozin propanediol 10 mg 10 mg PO [facility] 05/03/24 10/26/24 10/21/24 History tablet (Farxiga) fluticasone propionate 50 1 spray intranasal [facility] 05/03/24 10/26/24 10/25/24 History mcg/actuation nasal spray,suspension levothyroxine 50 mcg tablet 50 mcg PO [facility] 05/03/24 10/26/24 10/26/24 History omeprazole magnesium 20 mg 20 mg PO [facility] 05/03/24 10/26/24 10/26/24 History tablet,delayed release (Prilosec OTC) sertraline 100 mg tablet 200 mg PO QAM 05/03/24 10/26/24 10/25/24 History ticagrelor 90 mg tablet (Brilinta) 90 mg PO BID 05/03/24 10/26/24 10/19/24 History metoprolol succinate 50 mg 200 mg PO QAM 06/29/24 10/26/24 10/26/24 History tablet,extended release 24 hr sacubitril 97 mg-valsartan 103 mg 1 tab PO BID 08/03/24 10/26/24 10/24/24 History tablet (Entresto) spironolactone 25 mg tablet 12.5 mg PO QAM 08/03/24 10/26/24 10/25/24 History leflunomide 10 mg tablet 10 mg PO QAM 10/10/24 10/26/24 10/25/24 History triamcinolone acetonide 0.1 % 1 appl topical DAILY PRN psoriasis 10/10/24 10/26/24 Unknown History topical cream Physical Exam 2 Vital Signs and Narrative: Vital Signs: Last Vital Signs Temp 97.6 F 10/26/24 18:15 Pulse 62 10/26/24 18:15 Resp 16 10/26/24 18:15 BP 94/47 L 10/26/24 18:15 Pulse Ox 97 10/26/24 18:15 O2 Del Method Room Air 10/26/24 18:15 O2 Flow Rate 4 10/26/24 15:30 BMI result Body Mass Index 28.6 Alert and orientated X3, able to give good history. Neuro: CN II-X11 intact, no deficits, visual acuity intact EYES: PERRLA, EOM intact ENT: hearing intact, no issues with swallowing, uvula midline, lips moist, nares patent no epistaxis Cardiac: S1 S2 RRR, murmur audible, no JVD, no edema in Lower ext Pulmonary: lungs clear to auscultation B Abdominal: BS active in all 4 quadrants, no guarding, tenderness, rebounding MSK: strength 5/5 upper and R lower extremities , LLE isolated with velcro cast : no CVA tenderness no bladder distension Extremities: no edema in lower extremities, PT and DP pulses palpable +2 Psych: mood stable, judgement and insight good Skin: intact Results Labs 10/26/24 14:58 Labs: Laboratory Results - last 24 hr 10/20/24 10/26/24 10:05 14:58 MCV 92.0 MCH 31.4 MCHC 34.1 RDW 17.4 H Plt Count 138 L MPV 11.9 Absolute Nucleated RBC 0.000 Nucleated RBC % (auto) 0.0 Blood Type B Positive Antibody Screen NEGATIVE Crossmatch See Detail ECG Attestation: I personally reviewed and interpreted this ECG as follows: (NSR normal Qtc 411 ) ECG interpretation date: 10/10/24 Prior ECG tracings: available for review Imaging Radiologist's Impressions: Impressions Knee X-Ray 10/26/24 09:40 IMPRESSION: Status post left total knee arthroplasty. Electronically signed by: Jordan Montague MD 10/26/2024 03:52 PM EDT RP Assessment and Plan (1) Status post total knee replacement, left: Status: Acute Plan Pt is a 74 yo male with PMH HFrEF on entresto, HLD, Hypotension, RA, OA, Depression, GERD, recent DE and PCI on Brilinta, Psoriasis being seen for medical management status post a left total knee replacement with Dr. Crum. Patient offers no current medical concerns. Patient is aware that blood pressure has been running low, even before surgery, 81/45 to 92/57. 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 Patient takes caution with preventing change in position too fast as this can cause dizziness patient denies any associated falls or near syncopal episodes. S/p L TKR -Per orthopedics Hyponatremia -Na 131 10/26 -BMP in AM Hypotension -Recommend checking with cardiology prior to DC regarding overall Blood pressures pre and post op and medication regimen -Pt is likely to resume entresto, metoprolol, and spironolactone post operatively but strongly recommend cardiology oversight as to dosing and regimen upon discharge noting overall Blood pressures since admission -Unable to use copious fluids due to pt's HF HX -Can consider orthostatics but this may be difficult to do post TKR -H/H are stable post operatively, check CBC in AM -ECG ordered HFrEF -Last EF documented 40%, pt believes EF is closer to 30% -Pt has had low BP for some time -Lungs are clear, pt presents euvolemic on exam -CHF guidelines reviewed with pt for home, pt is well versed on s/s of exacerbation (2 pounds wt gain in one day, 5 pounds in one week and to contact mixer wet pour) -Low Na diet when at home -recommend consulting Cardiology for low blood pressures overall and restarting appropriate dosages of patient's Entresto, metoprolol and spironolactone STEMI with PCI SEAMUS to RCA 01/22/2024 -ticagrelor to resume post operatively if surgeon agrees -treatment regimen per Cardiology -check ECG prior to Discharge noting low blood pressures HLD -continue Statin -Cardiac diet RA -Leflunomide continues -Follow with credit union examiner as an outpatient Hypothyroidism -continue levothyroxine Patient has no specific medical complaints but is aware that his blood pressure has been running low pre and postoperatively. Recommend highly reaching out to Cardiology for review of patient's current blood pressures, EKG and medication regimen to plan for discharge appropriately. CBC and BMP are ordered for review in the morning to ensure H&H remained stable and sodium improves. The hospitalist group will continue to follow and we are readily available to assist as needed. Thank you for this consultation.
[2024-10-26] MEDS: Atorvastatin Calcium 80 MG TABLET PO (22:12)
[2024-10-26] MEDS: Docusate Sodium 100 MG CAPSULE PO (22:12)
[2024-10-26] MEDS: Ticagrelor 90 MG TABLET PO (22:13)
[2024-10-26] MEDS: Celecoxib 200 MG CAPSULE PO (22:13)
[2024-10-27] VITALS (12 sets, daily range): BP systolic 85–108; BP diastolic 51–73; PULSE 58–77; RESP 16–20; TEMP 36.1–37; O2SAT 94–97
--- NOTE | ~2024-10-27 | XR_ITS ---
EXAMINATION: XR KNEE 1-2 VIEWS LEFT HISTORY: s/p Left TKA COMPARISON: Comparison is made with the prior examination dated 10/20/2024. FINDINGS: AP and lateral portable views of the left knee are submitted from the operating room at 11:15 AM. The patient is status post total knee arthroplasty. The orthopedic elements are in anatomic alignment. Postoperative changes are noted in the soft tissues. XR/XR knee LT 2V IMPRESSION: Status post left total knee arthroplasty. Electronically signed by: Jordan Montague MD 10/26/2024 03:52 PM EDT
[2024-10-27] MEDS: Melatonin 3 MG TABLET 6 MG PO ×2 (01:06→20:18)
[2024-10-27] MEDS: Acetaminophen 325 MG TABLET 650 MG PO ×2 (02:08→20:18)
[2024-10-27] MEDS: oxyCODONE HCl Immed Release 5 MG TABLET PO (04:28)
[2024-10-27] MEDS: Lactated Ringers 1,000 ML 50 ML IVCONT (04:31)
[2024-10-27] MEDS: Omeprazole 20 MG CAPSULE.DR PO (05:42)
[2024-10-27] MEDS: Levothyroxine Sodium 50 MCG TABLET PO (05:42)
[2024-10-27 06:25] LABS: MANUAL DIFF FLAG NO
[2024-10-27 06:33] LABS: Basophils Percent Auto 0.1 % (0-2); Hematocrit 25.1 % (42.0-52.0); Hemoglobin 8.9 g/dl (14.0-18.0); Imm Gran Abs Auto 0.04 X10*3/uL (0.00-0.03); Imm Gran Pct Auto 0.5 % (0.0-0.4); Lymphocytes Absolute Auto 0.7 X10*3/uL (1.2-4.9); Lymphocytes Percent Auto 8.5 % (20-40); Mean Corpuscular HGB Conc 35.5 g/dl (31.0-36.0); Mean Corpuscular Hemoglobin 32.4 pg (27.0-33.0); Mean Corpuscular Volume 91.3 fL (80.0-98.0); Mean Platelet Volume 12.5 fL (9.4-12.4); Monocytes Absolute Auto 0.7 X10*3/uL (0.1-1.2); Monocytes Percent Auto 8.3 % (2-11); Neutrophils Absolute Auto 6.6 x10*3/uL (2.0-8.3); Neutrophils Percent Auto 82.6 % (45-73); Platelet Count 138 X10*3/uL (160-400); Red Blood Count 2.75 X10*6/uL (4.60-5.80); Red Cell Distribution Width 16.9 % (11.0-16.0)
--- NOTE | 2024-10-27 06:42 | PC.NURSE ---
patient arrived from PACU to floor prior to my shift. On my shift patient stating he is missing his License and two insurance cards. Call made to PACU regarding missing belongings at the time they were unable to locate these belongings. Patients belongings list does not have these three items listed-patient stated he didn't think to report them due to lack of value. This RN searched patients belongings and was unable to locate ID and insurance cards. Overnight nursing supervisor firearms made aware, message sent out for PACU charge to check this AM
[2024-10-27 06:48] LABS: Anion Gap 12 (12-20); Blood Urea Nitrogen 18 mg/dL (9-16); Carbon Dioxide 22 mmol/L (22-29); Chloride 105 mmol/L (96-108); Creatinine Clr Calc Pharmacy 97.7; Estimated Glomerular Filt Rate > 60; Glucose Fasting 103 mg/dL (60-99); Potassium 3.8 mmol/L (3.3-5.1); Sodium 135 mmol/L (135-145)
--- NOTE | 2024-10-27 08:47 | P.PNOP_ITS ---
Subjective Subjective Date of Service: 10/27/24 Interval history: Postop day 1 status post left total knee arthroplasty No overnight events Patient did have some hypotension in PACU however he has recovered well Denies chest pain shortness of breath or palpitations Currently anxious because he has lost his identification Physical Exam Vital Signs: Vital Signs: Last Vital Signs Temp 97.8 F 10/27/24 07:48 Pulse 58 10/27/24 07:48 Resp 18 10/27/24 07:48 BP 108/60 10/27/24 07:48 Pulse Ox 95 10/27/24 07:48 O2 Del Method Room Air 10/27/24 07:48 O2 Flow Rate 4 10/26/24 15:30 BMI result Body Mass Index 28.6 Const: General: cooperative, healthy appearing and no acute distress Resp: Effort & Inspection: normal respiratory effort and able to speak in complete sentences Cardio: Rate: regular rate Peripheral pulses: Peripheral pulses 2+ throughout GI: Palpation (GI): Soft to palpation Skin: General skin exam: no rashes or lesions noted Extrem: Other: Left knee Aquacel dressing clean dry and intact. Able to dorsi and plantar flex. Neurovascularly intact Procedures Date of Service Date of Service: 10/27/24 Progress Note: A&P Assessment and plan (1) Status post total knee replacement, left: Status: Acute Assessment and Plan: * Continue pain mgmnt * Begin lovenox for dvt ppx * begin PT for LT TKA * Dispo planning-Pending PT eval, pain mgmnt Time Spent With Patient Time: Total time managing care of this patient today ____ minutes. Quality Stroke Does the patient have a stroke diagnosis?: No VTE Prior VTE?: No VTE Risk Level:: Surgical - very high VTE Device Contraindication: N/A - Device Ordered VTE Drug Contraindication: N/A - Med Ordered
--- NOTE | 2024-10-27 09:08 | P.OP_ITS ---
Operative Note Operative Note Date of Service: 10/26/24 Narrative: Date of Service: 10/26/24 Pre-op diagnosis: Left knee OA Post-op diagnosis: same Procedure: Left TKA Implants: [employer] Tri[employer]lon posterior stabilized cemented 11/18/12TS/35a Surgeon: Tray Crum MD Was an Hand Bindery Assembly Worker used for this Procedure?: Yes Hand Bindery Assembly Worker: Hermila Hayward Estimated blood loss (mL): 20 Tourniquet time (min): 60 IV fluids (mL): 1,000 Pathology: none sent Condition: stable Disposition: PACU Procedure in detail: The patient was brought to the operating room and prepped and draped in standard sterile fashion. A time-out was called to identify proper site proper procedure proper surgeon and IV antibiotics were administered. 1 g of IV tranexamic acid was administered. I began by making a midline incision to the retinaculum and performed a medial parapatellar arthrotomy. The patella was translated laterally and the knee was flexed up. The medial and anterior compartment were completely eburnated. I performed a small medial peel and resected the infrapatellar fat pad. Caroline's line was then used to drill my intramedullary femoral guide and my distal femur cut of 10 mm was made in 5 degrees of valgus while protecting the soft tissues. I then measured a # 6 femur and placed my cutting guide in 3deg ER and made my anterior posterior and chamfer cuts protecting the soft tissues at all times. I then made my box but removing the PCL. Once I was satisfied with my cuts I turned my attention to the tibia. I removed the meniscus medially and laterally and , using an external cutting guide, in line with the tibial crest and the third ray, I made my distal tibial cut in 0 deg slope of while protecting the posterior soft tissues at all times. This was a varus knee and the lateral cut was moderate. An extension block was used to confirm appropriate amount of bony resection. I then sized a #6 tibia and once I was satisfied that there was complete tibial coverage I placed my trial and with the trial femur in place took the knee through range of motion. I was satisfied with the extension and flexion as well as the balance at 0, 30 and 90 degrees. I then turned my attention to the patella where I removed 1 cm from the undersurface of the patella and then trialed a 35a patellar button. Again the knee was taken through range of motion I was satisfied with the tracking. I then prepared the tibia with a drill and punch. A femoral bone plug was placed and the knee was irrigated copiously. I then cemented the patella, tibia and femur in standard fashion. Axial compression adn a clamp were used while the cement dried. Once the cement was hard on the back table all excess cement was removed and I trialed different inserts until I selected a #13TS insert. The final insert was placed. A Werewolf cautery wand was used to maintain hemostasis over the capsule and meniscal beds, the gutters and peripatellar soft tissues prior to cementation. The knee was then irrigated copiously. The knee was then closed with a running Quill suture, a 3 0 Vicryl and hu on the skin. Patient was then placed in sterile dressing and brought to recovery room in stable condition there were no known complications.
[2024-10-27] MEDS: Docusate Sodium 100 MG CAPSULE PO ×2 (09:34→20:16)
[2024-10-27] MEDS: Celecoxib 200 MG CAPSULE PO ×2 (09:34→20:15)
[2024-10-27] MEDS: oxyCODONE HCl ER 10 MG TAB.ER.12H PO (09:34)
[2024-10-27] MEDS: buPROPion HCl XL 300 MG TAB.ER.24H PO (09:35)
[2024-10-27] MEDS: Sertraline HCL 100 MG TABLET 200 MG PO (09:35)
[2024-10-27] MEDS: Ticagrelor 90 MG TABLET PO ×2 (09:35→20:16)
[2024-10-27] MEDS: Leflunomide 10 MG TABLET PO (09:35)
--- NOTE | 2024-10-27 10:20 | PM.CNCAR ---
History of Present Illness History of Present Illness Date of Service: 10/27/24 Requesting physician: Kemi Clement Consult reason: other (Low blood pressure) Chief complaint: lt tka Narrative: I was consulted to see Perez in cardiology consultation today for low blood pressure. Patient is a 74-year-old male with prior history of ischemic cardiomyopathy with EF as per him in the 35% range after his myocardial infarction last January. It seems like he had inferior STEMI with symptoms of chest pain which subsequently led to acute cardiac catheterization and RCA stenting which appeared complicated. Patient subsequently was on dual antiplatelet therapy as well as neurohormonal modulation which was rapidly uptitrate as outpatient at [facility] and currently on very high doses of neurohormonal modulation with Toprol 200 mg daily, Entresto 97-103 mg b.i.d., Farxiga as well as spironolactone therapy. He said he does have usually low blood pressures systolic blood pressure in the 90s and he does have symptoms of orthostatic lightheadedness on these medicines. However they had continue this medication as he was able to tolerate. He has not had any heart failure syndrome. He was scheduled for an outpatient elective left total knee replacement on his request due to poor quality of life as per him and for psychological reasons as he said. He had been seen by his missile tracking technician and was told that he is optimized to undergo surgery and stop his dual antiplatelet regimen but continue aspirin through the surgery. In the surgery patient had low blood pressure with a systolic blood pressure in the 70s. Blood pressure remained low in the perioperative period. However this morning blood pressure is back to his baseline 90s. Does have any symptoms right now. Denies any chest pain. Denies any shortness of breath, orthopnea. Also noted drop in his hematocrit. His Brilinta was restarted yesterday. His blood pressure meds and neurohormonal modulation currently on hold Review of Systems Constitutional: Constitutional: Reports no additional constitutional complaints Eyes: Eyes: Reports no additional eye complaints Cardiovascular: Cardiovascular: Reports no additional cardiovascular complaints Respiratory: Respiratory: Reports no additional respiratory complaints Gastrointestinal: Gastrointestinal: Reports no additional gastrointestinal complaints Genitourinary: Genitourinary: Reports no additional male genitourinary complaints Musculoskeletal: Musculoskeletal: Reports other (Surgical pain) Integumentary/Breasts: Skin/Breast: Reports system reviewed and no additional complaints, except as docu Neurologic: Reports system reviewed and no additional complaints, except as documented [facility] Past Medical History Medical History Anesthesia complication Arthritis GERD (gastroesophageal reflux disease) COVID-19 Elevated cholesterol Rheumatoid arthritis Depression Myocardial infarction Psoriasis Hypothyroid HTN (hypertension) Osteoarthritis CHF (congestive heart failure) Family History Family History Sister Cancer Surgical History Surgical History History of esophagogastroduodenoscopy (EGD) H/O colonoscopy Hx of oral surgery S/P coronary artery stent placement Social History Social History Household Members: Family Household Members Other:: sister Housing: House Are you a primary aged or disabled care worker to a significant other at home: No Do you presently have visiting nurse or other home services: No Alcohol intake: never Comment: COUNTS CORRECT Patient Tobacco Use Status: Former Tobacco user Tobacco use type: Cigarette Years Smoked: 20 e-Cigarette/Vaping Use: Never Used Second Hand Smoke Exposure: Yes Use of substances other than those prescribed or required for medical reasons: No Currently Displaying Signs/Symptoms of Drug Intoxication Withdrawal: No Have you been hit, kicked, punched, or otherwise hurt by someone within the past year? If so, by whom?: No Do you feel safe in your current relationship?: No Current Relationship Is there a partner from a previous relationship who is making you feel unsafe now?: No Are you made to feel afraid or neglected: No Spiritual Healthcare Practices: no Restoration Healthcare Practices: no Cultural Healthcare Practices: no Are you DNR?: No Advance Directives: No (sister is primary contact) Advance Directives Information Provided: Yes (as above noted) Advance Directives on File: No Do you have a plan to hurt others: No Plan Recently lost weight without trying: No Eating poorly because of decreased appetite: No Nutrition Risks: No Nutritional Risk Poor oral hygiene: No (permanent bridge) service: No Current occupational status: retired Cognitive needs: Yes (cane) Hearing needs: No Vision needs: Yes (Glasses) Travel History Ebola Risk: Travel/Contact With Anyone From Affected Area/s: No Has Patient Experienced Ebola Symptoms: No Meds Allergies Allergy/AdvReac Type Severity Reaction Status Date / Time No Known Allergies Allergy Verified 10/20/24 09:17 Active Medications: Current Medications Acetaminophen (Acetaminophen 325 Mg Tablet) 650 mg PO Q6H PRN PRN Reason: Pain, Mild 1-3,fever,headache Last Admin: 10/27/24 02:08 Dose: 650 mg Atorvastatin Calcium (Atorvastatin Calcium 80 Mg Tablet) 80 mg PO BEDTIME [facility] Last Admin: 10/26/24 22:12 Dose: 80 mg Bupropion HCl (Bupropion Hcl Xl 300 Mg Tab.Er.24h) 300 mg PO DAILY [facility] Last Admin: 10/27/24 09:35 Dose: 300 mg Celecoxib (Celecoxib 200 Mg Capsule) 200 mg PO BID [facility] Last Admin: 10/27/24 09:34 Dose: 200 mg Docusate Sodium (Docusate Sodium 100 Mg Capsule) 100 mg PO BID [facility] Last Admin: 10/27/24 09:34 Dose: 100 mg Enoxaparin Sodium (Enoxaparin Sodium 40 Mg/0.4 Ml Syringe) 40 mg SUBCUT Q24H [facility] Fluticasone Propionate (Fluticasone Propionate Nasal 16 Gm Prentiss) 1 spray NOSTRIL-B DAILY [facility] Last Admin: 10/27/24 09:35 Dose: Not Given Hydromorphone HCl (Hydromorphone Hcl 0.5 Mg/0.5 Ml Syringe) 0.25 mg IVPUSH Q4H PRN; Protocol PRN Reason: Pain, Severe (Pain Scale 7-10) Lactated Ringer's (Lr) 1,000 mls @ 100 mls/hr IVCONT .Q10H [facility] Last Admin: 10/27/24 05:45 Dose: Not Given Phenylephrine HCl 20 mg/ (Sodium Chloride) 252 mls @ 0 mls/hr IVCONT .Q0M [facility]; Protocol Last Admin: 10/26/24 14:53 Dose: 0.2 mcg/kg/min, 11.48 mls/hr Leflunomide (Leflunomide 10 Mg Tablet) 10 mg PO DAILY [facility] Last Admin: 10/27/24 09:35 Dose: 10 mg Levothyroxine Sodium (Levothyroxine Sodium 50 Mcg Tablet) 50 mcg PO DAILY@0600 [facility] Last Admin: 10/27/24 05:42 Dose: 50 mcg Magnesium Hydroxide (Milk Of Magnesia 30 Ml Oral.Susp) 30 ml PO DAILY PRN PRN Reason: Constipation Melatonin (Melatonin 3 Mg Tablet) 6 mg PO BEDTIME PRN PRN Reason: Insomnia Last Admin: 10/27/24 01:06 Dose: 6 mg Metoprolol Succinate (Metoprolol Succinate Er 100 Mg Tab.Er.24h) 100 mg PO DAILY [facility]; Protocol Naloxone HCl (Naloxone Hcl 0.4 Mg/Ml Vial) 0.04 mg IVPUSH Q5M PRN PRN Reason: Excessive sedation or RR < 8 Non-Formulary Medication (Dapagliflozin Propanediol [Farxiga]) 10 mg PO QAM [facility] Omeprazole (Omeprazole 20 Mg Capsule.Dr) 20 mg PO DAILY@0630 [facility] Last Admin: 10/27/24 05:42 Dose: 20 mg Ondansetron HCl (Ondansetron Hcl 4 Mg/2 Ml Vial) 4 mg IVPUSH Q8H PRN PRN Reason: Nausea and Vomiting Oxycodone HCl (Oxycodone Hcl Immed Release 5 Mg Tablet) 5 mg PO Q4H PRN PRN Reason: Pain, Moderate(Pain Scale 4-6) Last Admin: 10/27/24 04:28 Dose: 5 mg Oxycodone HCl (Oxycodone Hcl Er 10 Mg Tab.Er.12h) 10 mg PO BID [facility] Last Admin: 10/27/24 09:34 Dose: 10 mg Sacubitril/Valsartan (Sacubitril/Valsartan 97/103 1 Tab Tablet) 1 tab PO BID [facility]; Protocol Last Admin: 10/26/24 22:14 Dose: Not Given Sertraline HCl (Sertraline Hcl 100 Mg Tablet) 200 mg PO DAILY [facility] Last Admin: 10/27/24 09:35 Dose: 200 mg Sodium Chloride (0.9 % Sodium Chloride Flush 3 Ml Syringe) 3 ml IVFLUSH QSHIFT [facility] Last Admin: 10/27/24 07:28 Dose: Not Given Spironolactone (Spironolactone 25 Mg Tablet) 12.5 mg PO DAILY [facility]; Protocol Ticagrelor (Ticagrelor 90 Mg Tablet) 90 mg PO BID [facility] Last Admin: 10/27/24 09:35 Dose: 90 mg Triamcinolone Acetonide (Triamcinolone Acet 0.1 % Cream 15 Gm Tube) 1 appl TOPICAL DAILY PRN; Protocol PRN Reason: psoriasis Home Medications ?Medication ?Instructions ?Recorded ?Confirmed ?Last Taken ?Type aspirin 81 mg tablet,delayed 81 mg PO QAM 05/03/24 10/26/24 10/26/24 History release atorvastatin 80 mg tablet 80 mg PO BEDTIME 05/03/24 10/26/24 10/25/24 History bupropion HCl 150 mg 24 hr tablet, 300 mg PO QAM 05/03/24 10/26/24 10/25/24 History extended release dapagliflozin propanediol 10 mg 10 mg PO QAM 05/03/24 10/26/24 10/21/24 History tablet (Farxiga) fluticasone propionate 50 1 spray intranasal QAM 05/03/24 10/26/24 10/25/24 History mcg/actuation nasal spray,suspension levothyroxine 50 mcg tablet 50 mcg PO QAM 05/03/24 10/26/24 10/26/24 History omeprazole magnesium 20 mg 20 mg PO QAM 05/03/24 10/26/24 10/26/24 History tablet,delayed release (Prilosec OTC) sertraline 100 mg tablet 200 mg PO QAM 05/03/24 10/26/24 10/25/24 History ticagrelor 90 mg tablet (Brilinta) 90 mg PO BID 05/03/24 10/26/24 10/19/24 History metoprolol succinate 50 mg 200 mg PO QAM 06/29/24 10/26/24 10/26/24 History tablet,extended release 24 hr sacubitril 97 mg-valsartan 103 mg 1 tab PO BID 08/03/24 10/26/24 10/24/24 History tablet (Entresto) spironolactone 25 mg tablet 12.5 mg PO QAM 08/03/24 10/26/24 10/25/24 History leflunomide 10 mg tablet 10 mg PO QAM 10/10/24 10/26/24 10/25/24 History triamcinolone acetonide 0.1 % 1 appl topical DAILY PRN psoriasis 10/10/24 10/26/24 Unknown History topical cream Physical Exam Vital Signs: Vital Signs: Last Vital Signs Temp 97.8 F 10/27/24 07:48 Pulse 58 10/27/24 07:48 Resp 18 10/27/24 07:48 BP 108/60 10/27/24 07:48 Pulse Ox 95 10/27/24 07:48 O2 Del Method Room Air 10/27/24 07:48 O2 Flow Rate 4 10/26/24 15:30 BMI result Body Mass Index 28.6 Const: General: cooperative, comfortable, no acute distress, alert and awake Nutritional Appearance: average body habitus Orientation/consciousness: patient oriented x3 Limitations: no limitations HEENT: Head: Yes normocephalic and Yes atraumatic Neck: Neck: Yes trachea midline, Yes supple and Yes no JVD Resp: Effort & Inspection: normal respiratory effort Auscultation: clear to auscultation bilaterally Cardio: Jugular venous distension: no JVD Palpation: normal PMI Rate: regular rate Rhythm: regular rhythm Heart sounds: S1 normal heart sound present, S2 normal heart sound present, no click, no gallops and no murmurs GI: Percussion: Yes normal to percussion Skin: General skin exam: no rashes or lesions noted Neuro: General: patient oriented x3 and no focal motor deficits Extrem: General: Yes no clubbing, cyanosis or edema Psych: Appearance: grossly normal Objective Labs and Meds 10/27/24 05:57 10/27/24 05:57 Lab results: Laboratory Results - last 24 hr 10/20/24 10/26/24 10/27/24 10:05 14:58 05:57 WBC 8.2 8.0 RBC 3.63 L 2.75 L D Hgb 11.4 L 8.9 L D Hct 33.4 L 25.1 L D MCV 92.0 91.3 MCH 31.4 32.4 MCHC 34.1 35.5 RDW 17.4 H 16.9 H Plt Count 138 L 138 L MPV 11.9 12.5 H Immature Gran % (Auto) 0.5 H Neut % (Auto) 82.6 H Lymph % (Auto) 8.5 L [place] % (Auto) 8.3 Eos % (Auto) 0.0 Baso % (Auto) 0.1 Lymph # (Auto) 0.7 L [place] # (Auto) 0.7 Eos # (Auto) 0.0 Baso # (Auto) 0.0 Abs Immat Gran (auto) 0.04 H Absolute Neuts (auto) 6.6 Absolute Nucleated RBC 0.000 0.000 Nucleated RBC % (auto) 0.0 0.0 Sodium 135 Potassium 3.8 Chloride 105 Carbon Dioxide 22 Anion Gap 12 BUN 18 H Creatinine 0.75 Estim Creat Clear Calc 97.7 Estimated GFR > 60 Fasting Glucose 103 H Calcium 8.0 L D Crossmatch See Detail Imaging Radiologist's impression: Impressions Knee X-Ray 10/26/24 09:40 IMPRESSION: Status post left total knee arthroplasty. Electronically signed by: Jordan Montague MD 10/26/2024 03:52 PM EDT RP Assessment and Plan (1) Low blood pressure: Status: Acute Low blood pressure in this gentleman intraoperatively which is not unexpected with effective anesthesia as well as blood loss as well as poor systolic function and effect of neurohormonal modulator drugs at high doses. This has recovered promptly but still remains on the low side without any neurohormonal modulators restarted. I would consider giving him packed RBC transfusion to get his hematocrit over 30. He has no clinical syndrome of heart failure and do not expect any heart failure to developed. Once he is got transfused and blood pressure remained stable I will restart his neurohormonal modulation but will reduce his Entresto to 49-51 mg b.i.d. and reduce metoprolol XL to 50 mg b.i.d.. I would continue to hold his spironolactone therapy which can be then re-initiated as outpatient. Management was discussed with him. He is agreeable to this management plan. He has a follow-up with his own missile tracking technician in coming month. Advised to maintain adequate hydration. (2) Ischemic cardiomyopathy: Status: Acute Ischemic cardiomyopathy with persistent LV systolic dysfunction as per him with LV ejection fraction of 35%. I think he will benefit from neurohormonal modulator and will restart him if possible as above but at a lower dose to prevent any hypotensive episodes. Advised to maintain adequate hydration. Signs and symptoms of heart failure were discussed. Will discuss with his own missile tracking technician about need for defibrillator which can be done as an outpatient. (3) CAD (coronary artery disease): Status: Acute CAD with drug-eluting stent to the RCA into the PDA branch, complex PCI last January for acute myocardial infarction. His dual antiplatelet therapy were withheld for the surgery after the consent with a missile tracking technician. This has been reinstated says last night. He is not having any active ongoing chest pain syndrome. Continue the same. Continue high-intensity statin therapy. Will sign of the case unless there are further issues. Feel free to call me any time. Thank you for allowing me to partake in his care. Case discussed with Ms.Ta-Mara Davey Procedures Date of Service Date of Service: 10/27/24
[2024-10-27] MEDS: Lactated Ringers 1,000 ML 80 ML IVCONT ×2 (11:24→17:28)
[2024-10-27] MEDS: Aspirin 325 MG TABLET PO ×2 (11:35→20:14)
--- NOTE | 2024-10-27 15:14 | HO.POSTANES ---
Post Anesthesia Evaluation Post Anesthesia Evaluation Date of Service: 10/27/24 Vital Signs: Vital Signs Temp Pulse Resp BP Pulse Ox O2 Del Method 10/27/24 14:57 97.2 F 72 18 108/73 95 Room Air 10/27/24 13:35 97.5 F 67 20 95/54 L 10/27/24 13:20 97.4 F 77 20 108/56 L 10/27/24 11:00 98.0 F 66 18 85/56 L 94 Room Air 10/27/24 10:13 68 93/51 L 10/27/24 07:48 97.8 F 58 18 108/60 95 Room Air Anesthesia: Spinal and Nerve Block Mental Status: Awake Pain Control: Satisfactory Nausea/Vomiting: None Hydration: Adequate Anesthesia-Related Issues: No Anes. Related Issues
--- NOTE | 2024-10-27 15:29 | MHC.CM.PN ---
IMM DELIVERED. PATIENT LIVES IN A HOME W/ SISTER AND ADULT NEPHEW. SELF CARE. AMBULATES W/ CANE. ALSO HAS A ROLLATOR. PCP SAGE MOREL NO HCP. CM PROVIDED EDUCATION AND OFFERED ASSISTANCE. PATIENT DECLINED. DP: HOME W/ NEW [facility] FOR PT, PER PATIENT PREFERENCE. SISTER TO TRANSPORT. CM WILL CONTINUE TO FOLLOW.
--- NOTE | 2024-10-27 17:05 | P.PNIM_ITS ---
Subjective Subjective Date of Service: 10/27/24 Interval History: Seen and examined this morning Follow-up for medical consultation following left total knee arthroplasty H/H trending down, blood pressure has been low Patient reports baseline blood pressure 90s/low 100as - denies dizziness at this time Review of Systems Review of Systems: Yes all other systems are reviewed and are negative Constitutional Constitutional: Denies chills and Denies fever(s) Physical Exam 2 Vital Signs: Vital Signs: Last Vital Signs Temp 97.2 F 10/27/24 14:57 Pulse 72 10/27/24 15:32 Resp 18 10/27/24 14:57 BP 108/73 10/27/24 15:32 Pulse Ox 95 10/27/24 14:57 O2 Del Method Room Air 10/27/24 14:57 O2 Flow Rate 4 10/26/24 15:30 BMI result Body Mass Index 28.6 Const: General: cooperative, comfortable, no acute distress, alert and awake Nutritional Appearance: average body habitus Orientation/consciousness: p atient oriented x3 Resp: Effort & Inspection: normal respiratory effort, able to speak in complete sentences, no respiratory distress and no use of accessory muscles Cardio: Rate: regular rate GI: Inspection: No distended Palpation (GI): Soft to palpation and nontender Neuro: General: patient oriented x3, moves all extremities and CN's II-XI intact bilaterally Extrem: Other: Left knee wrapped in clean/dry/intact Shiva bandage Objective Data Active Medications Acetaminophen (Acetaminophen 325 Mg Tablet) 650 mg PO Q6H PRN PRN Reason: Pain, Mild 1-3,fever,headache Last Admin: 10/27/24 02:08 Dose: 650 mg Documented By: REED Aspirin (Aspirin 325 Mg Tablet) 325 mg PO BID [facility] Last Admin: 10/27/24 11:35 Dose: 325 mg Documented By: ZOE Atorvastatin Calcium (Atorvastatin Calcium 80 Mg Tablet) 80 mg PO BEDTIME [facility] Last Admin: 10/26/24 22:12 Dose: 80 mg Documented By: REED Bupropion HCl (Bupropion Hcl Xl 300 Mg Tab.Er.24h) 300 mg PO DAILY [facility] Last Admin: 10/27/24 09:35 Dose: 300 mg Documented By: ALBIN Celecoxib (Celecoxib 200 Mg Capsule) 200 mg PO BID [facility] Last Admin: 10/27/24 09:34 Dose: 200 mg Documented By: ALBIN Docusate Sodium (Docusate Sodium 100 Mg Capsule) 100 mg PO BID [facility] Last Admin: 10/27/24 09:34 Dose: 100 mg Documented By: ALBIN Empagliflozin (Empagliflozin 10 Mg Tablet) 10 mg PO DAILY [facility] Fluticasone Propionate (Fluticasone Propionate Nasal 16 Gm [place]) 1 spray NOSTRIL-B DAILY [facility] Last Admin: 10/27/24 09:35 Dose: Not Given Documented By: ALBIN Non-Admin Reason: Med Not Available Hydromorphone HCl (Hydromorphone Hcl 0.5 Mg/0.5 Ml Syringe) 0.25 mg IVPUSH Q4H PRN; Protocol PRN Reason: Pain, Severe (Pain Scale 7-10) Phenylephrine HCl 20 mg/ (Sodium Chloride) 252 mls @ 0 mls/hr IVCONT .Q0M [facility]; Protocol Last Titration: 10/27/24 15:32 Dose: Infused Documented By: WILLIAM Lactated Ringer's (Lr) 1,000 mls @ 80 mls/hr IVCONT .[id number] [facility] Stop: 10/27/24 23:59 Last Admin: 10/27/24 11:24 Dose: 80 mls/hr Documented By: ALBIN Leflunomide (Leflunomide 10 Mg Tablet) 10 mg PO DAILY [facility] Last Admin: 10/27/24 09:35 Dose: 10 mg Documented By: ALBIN Levothyroxine Sodium (Levothyroxine Sodium 50 Mcg Tablet) 50 mcg PO DAILY@0600 [facility] Last Admin: 10/27/24 05:42 Dose: 50 mcg Documented By: REED Magnesium Hydroxide (Milk Of Magnesia 30 Ml Oral.Susp) 30 ml PO DAILY PRN PRN Reason: Constipation Melatonin (Melatonin 3 Mg Tablet) 6 mg PO BEDTIME PRN PRN Reason: Insomnia Last Admin: 10/27/24 01:06 Dose: 6 mg Documented By: REED Naloxone HCl (Naloxone Hcl 0.4 Mg/Ml Vial) 0.04 mg IVPUSH Q5M PRN PRN Reason: Excessive sedation or RR < 8 Omeprazole (Omeprazole 20 Mg Capsule.) 20 mg PO DAILY@0630 [facility] Last Admin: 10/27/24 05:42 Dose: 20 mg Documented By: REED Ondansetron HCl (Ondansetron Hcl 4 Mg/2 Ml Vial) 4 mg IVPUSH Q8H PRN PRN Reason: Nausea and Vomiting Oxycodone HCl (Oxycodone Hcl Immed Release 5 Mg Tablet) 5 mg PO Q4H PRN PRN Reason: Pain, Moderate(Pain Scale 4-6) Last Admin: 10/27/24 04:28 Dose: 5 mg Documented By: REED Oxycodone HCl (Oxycodone Hcl Er 10 Mg Tab.Er.12h) 10 mg PO BID [facility] Last Admin: 10/27/24 09:34 Dose: 10 mg Documented By: ALBIN Sertraline HCl (Sertraline Hcl 100 Mg Tablet) 200 mg PO DAILY [facility] Last Admin: 10/27/24 09:35 Dose: 200 mg Documented By: ALBIN Sodium Chloride (0.9 % Sodium Chloride Flush 3 Ml Syringe) 3 ml IVFLUSH QSHIFT [facility] Last Admin: 10/27/24 15:46 Dose: Not Given Documented By: WILLIAM Non-Admin Reason: IV Running Ticagrelor (Ticagrelor 90 Mg Tablet) 90 mg PO BID [facility] Last Admin: 10/27/24 09:35 Dose: 90 mg Documented By: ALBIN Triamcinolone Acetonide (Triamcinolone Acet 0.1 % Cream 15 Gm Tube) 1 appl TOPICAL DAILY PRN; Protocol PRN Reason: psoriasis Labs 10/27/24 05:57 10/27/24 05:57 Labs: Laboratory Results - last 24 hr 10/27/24 10/27/24 05:57 11:00 MCV 91.3 MCH 32.4 MCHC 35.5 RDW 16.9 H Plt Count 138 L MPV 12.5 H Immature Gran % (Auto) 0.5 H Neut % (Auto) 82.6 H Lymph % (Auto) 8.5 L [place] % (Auto) 8.3 Eos % (Auto) 0.0 Baso % (Auto) 0.1 Lymph # (Auto) 0.7 L [place] # (Auto) 0.7 Eos # (Auto) 0.0 Baso # (Auto) 0.0 Abs Immat Gran (auto) 0.04 H Absolute Neuts (auto) 6.6 Absolute Nucleated RBC 0.000 Nucleated RBC % (auto) 0.0 Anion Gap 12 Estim Creat Clear Calc 97.7 Estimated GFR > 60 Fasting Glucose 103 H Calcium 8.0 L D Blood Type B Positive Antibody Screen NEGATIVE Crossmatch See Detail Assessment and Plan (1) Low blood pressure: Status: Acute (2) Status post total knee replacement, left: Status: Acute Plan Pt is a 74 yo male with PMH HFrEF on entresto, HLD, Hypotension, RA, OA, Depression, GERD, recent [place] and PCI on Brilinta, Psoriasis being seen for medical management status post a left total knee replacement with Dr. Crum. Patient offers no current medical concerns. Patient is aware that blood pressure has been running low, even before surgery, 81/45 to 92/57. 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 Patient takes caution with preventing change in position too fast as this can cause dizziness patient denies any associated falls or near syncopal episodes. S/p L TKR Plan as per orthopedic surgery Hyponatremia resolved Hypotension CBC trending down. Patient with chronically low blood pressure Hold spironolactone, Entresto, metoprolol for now Plan to resume 50% dose of Entresto if blood pressure remains stable and reduce dose of toprol xl to 50 b.i.d. stop spironolactone Low blood pressure due to underlying heart disease, medications not due to sepsis Acute blood loss anemia Due to recent surgery 1 unit of blood ordered Follow CBC in a.m. HFrEF No acute exacerbation. No respiratory symptoms Seen by Cardiology with plan for medication adjustment as above CAD with g/o STEMI with PCI SEAMUS to RCA 01/22/2024 Brilinta, aspirin, statin HLD continue Statin RA Leflunomide outpatient Hypothyroidism continue levothyroxine Thank you for allowing us to participate in the care of this patient, we will follow along with you Quality Stroke Does the patient have a stroke diagnosis?: No VTE Prior VTE?: No VTE Risk Level:: Surgical - very high VTE Device Contraindication: N/A - Device Ordered VTE Drug Contraindication: N/A - Med Ordered
[2024-10-27] MEDS: Atorvastatin Calcium 80 MG TABLET PO (20:15)
[2024-10-27] MEDS: Metoprolol Succinate ER 50 MG TAB.ER.24H PO (20:16)
[2024-10-28 04:02] VITALS: BP 111/64; PULSE 55; RESP 18; TEMP 36.4; O2SAT 98
[2024-10-28] MEDS: Levothyroxine Sodium 50 MCG TABLET PO (04:59)
[2024-10-28] MEDS: Omeprazole 20 MG CAPSULE.DR PO (04:59)
[2024-10-28] MEDS: Acetaminophen 325 MG TABLET 650 MG PO (04:59)
[2024-10-28 06:26] LABS: Hemoglobin 10.4 g/dl (14.0-18.0)
[2024-10-28 06:28] LABS: Basophils Absolute Auto 0.1 X10*3/uL (0.0-0.2); Basophils Percent Auto 1.2 % (0-2); Hematocrit 30.7 % (42.0-52.0); Imm Gran Abs Auto 0.03 X10*3/uL (0.00-0.03); Imm Gran Pct Auto 0.6 % (0.0-0.4); Mean Corpuscular Hemoglobin 31.4 pg (27.0-33.0); Neutrophils Percent Auto 66.2 % (45-73); PLT CLUMP 1; SCAN SMEAR FLAG 1
[2024-10-28 06:30] LABS: Eosinophils Absolute Auto 0.1 X10*3/uL (0.0-0.4); Eosinophils Percent Auto 1.6 % (0-4); Hematocrit 30.6 % (42.0-52.0); Hemoglobin 10.4 g/dl (14.0-18.0); Lymphocytes Percent Auto 20.4 % (20-40); Mean Corpuscular Volume 92.4 fL (80.0-98.0); Mean Platelet Volume 11.9 fL (9.4-12.4); Monocytes Absolute Auto 0.5 X10*3/uL (0.1-1.2); Neutrophils Absolute Auto 3.3 x10*3/uL (2.0-8.3); Red Blood Count 3.31 X10*6/uL (4.60-5.80); Red Cell Distribution Width 16.9 % (11.0-16.0)
[2024-10-28 06:55] LABS: MANUAL DIFF FLAG NO; Platelet Count 119 X10*3/uL (160-400)
[2024-10-28 07:04] LABS: Anion Gap 12 (12-20); Blood Urea Nitrogen 16 mg/dL (9-16); Calcium 8.5 mg/dL (8.4-10.2); Carbon Dioxide 24 mmol/L (22-29); Chloride 104 mmol/L (96-108); Creatinine Clr Calc Pharmacy 104.7; Estimated Glomerular Filt Rate > 60; Glucose Fasting 90 mg/dL (60-99); Potassium 4.2 mmol/L (3.3-5.1); Sodium 136 mmol/L (135-145)
[2024-10-28] MEDS: 0.9 % Sodium Chloride Flush 3 ML SYRINGE IVFLUSH (08:05)
[2024-10-28] MEDS: oxyCODONE HCl ER 10 MG TAB.ER.12H PO (08:06)
[2024-10-28] MEDS: Aspirin 325 MG TABLET PO (08:06)
[2024-10-28] MEDS: Empagliflozin 10 MG TABLET PO (08:06)
[2024-10-28] MEDS: Sertraline HCL 100 MG TABLET 200 MG PO (08:06)
[2024-10-28] MEDS: Celecoxib 200 MG CAPSULE PO (08:07)
[2024-10-28] MEDS: Ticagrelor 90 MG TABLET PO (08:07)
[2024-10-28] MEDS: Metoprolol Succinate ER 50 MG TAB.ER.24H PO (08:07)
[2024-10-28] MEDS: Leflunomide 10 MG TABLET PO (08:07)
[2024-10-28] MEDS: Docusate Sodium 100 MG CAPSULE PO (08:07)
[2024-10-28] MEDS: buPROPion HCl XL 300 MG TAB.ER.24H PO (08:07)
[2024-10-28 08:24] VITALS: BP 115/66; PULSE 60; RESP 16; TEMP 36.2; O2SAT 97
--- NOTE | 2024-10-28 08:55 | P.PNOP_ITS ---
Subjective Subjective Date of Service: 10/28/24 Interval history: Postop day 2 status post left total knee arthroplasty No overnight events Patient did have some hypotension in PACU on POD0 - normalized l Denies chest pain shortness of breath or palpitations Currently anxious because he has lost his identification Physical Exam Vital Signs: Vital Signs: Last Vital Signs Temp 97.1 F 10/28/24 08:24 Pulse 60 10/28/24 08:24 Resp 16 10/28/24 08:24 BP 115/66 10/28/24 08:24 Pulse Ox 97 10/28/24 08:24 O2 Del Method Room Air 10/28/24 08:24 O2 Flow Rate 4 10/26/24 15:30 BMI result Body Mass Index 28.6 Const: General: cooperative, healthy appearing and no acute distress Resp: Effort & Inspection: normal respiratory effort and able to speak in complete sentences Cardio: Rate: regular rate Peripheral pulses: Peripheral pulses 2+ throughout GI: Palpation (GI): Soft to palpation Skin: General skin exam: no rashes or lesions noted Extrem: Other: Left knee Aquacel dressing clean dry and intact. Able to dorsi and plantar flex. Moderate hematoma. Neurovascularly intact Procedures Date of Service Date of Service: 10/28/24 Progress Note: A&P Assessment and plan (1) Status post total knee replacement, left: Status: Acute Assessment and Plan: * Continue pain mgmnt * Continue lovenox for dvt ppx * Continue PT for LT TKA * Dispo planning-Physical therapy Time Spent With Patient Time: Total time managing care of this patient today ____ minutes. Quality Stroke Does the patient have a stroke diagnosis?: No VTE Prior VTE?: No VTE Risk Level:: Surgical - very high VTE Device Contraindication: N/A - Device Ordered VTE Drug Contraindication: N/A - Med Ordered
--- NOTE | 2024-10-28 09:58 | P.PNIM_ITS ---
Subjective Subjective Date of Service: 10/28/24 Interval History: Seen and examined this morning Follow-up for consultation Blood pressure better, patient asymptomatic, no dizziness Review of Systems Review of Systems: Yes all other systems are reviewed and are negative Constitutional Constitutional: Denies chills and Denies fever(s) Physical Exam 2 Vital Signs: Vital Signs: Last Vital Signs Temp 97.1 F 10/28/24 08:24 Pulse 60 10/28/24 08:24 Resp 16 10/28/24 08:24 BP 115/66 10/28/24 08:24 Pulse Ox 97 10/28/24 08:24 O2 Del Method Room Air 10/28/24 08:24 O2 Flow Rate 4 10/26/24 15:30 BMI result Body Mass Index 28.6 Const: General: cooperative, comfortable, no acute distress, alert and awake Nutritional Appearance: average body habitus Orientation/consciousness: p atient oriented x3 Resp: Effort & Inspection: normal respiratory effort, able to speak in complete sentences, no respiratory distress and no use of accessory muscles Cardio: Rate: regular rate GI: Inspection: No distended Palpation (GI): Soft to palpation and nontender Neuro: General: patient oriented x3, moves all extremities and CN's II-XI intact bilaterally Extrem: Other: Left knee wrapped in clean/dry/intact Shiva bandage Objective Data Active Medications Acetaminophen (Acetaminophen 325 Mg Tablet) 650 mg PO Q6H PRN PRN Reason: Pain, Mild 1-3,fever,headache Last Admin: 10/28/24 04:59 Dose: 650 mg Documented By: REED Aspirin (Aspirin 325 Mg Tablet) 325 mg PO BID ON [facility] Last Admin: 10/28/24 08:06 Dose: 325 mg Documented By: CLIFFORD Atorvastatin Calcium (Atorvastatin Calcium 80 Mg Tablet) 80 mg PO BEDTIME ON [facility] Last Admin: 10/27/24 20:15 Dose: 80 mg Documented By: ALBIN Bupropion HCl (Bupropion Hcl Xl 300 Mg Tab.Er.24h) 300 mg PO DAILY ON [facility] Last Admin: 10/28/24 08:07 Dose: 300 mg Documented By: CLIFFORD Celecoxib (Celecoxib 200 Mg Capsule) 200 mg PO BID ON [facility] Last Admin: 10/28/24 08:07 Dose: 200 mg Documented By: CLIFFORD Docusate Sodium (Docusate Sodium 100 Mg Capsule) 100 mg PO BID ON [facility] Last Admin: 10/28/24 08:07 Dose: 100 mg Documented By: CLIFFORD Empagliflozin (Empagliflozin 10 Mg Tablet) 10 mg PO DAILY ON [facility] Last Admin: 10/28/24 08:06 Dose: 10 mg Documented By: CLIFFORD Fluticasone Propionate (Fluticasone Propionate Nasal 16 Gm [place]) 1 spray NOSTRIL-B DAILY ON [facility] Last Admin: 10/28/24 08:09 Dose: Not Given Documented By: CLIFFORD Non-Admin Reason: pt refused Hydromorphone HCl (Hydromorphone Hcl 0.5 Mg/0.5 Ml Syringe) 0.25 mg IVPUSH Q4H PRN; Protocol PRN Reason: Pain, Severe (Pain Scale 7-10) Leflunomide (Leflunomide 10 Mg Tablet) 10 mg PO DAILY ON [facility] Last Admin: 10/28/24 08:07 Dose: 10 mg Documented By: CLIFFORD Levothyroxine Sodium (Levothyroxine Sodium 50 Mcg Tablet) 50 mcg PO DAILY@0600 [facility] Last Admin: 10/28/24 04:59 Dose: 50 mcg Documented By: REED Magnesium Hydroxide (Milk Of Magnesia 30 Ml Oral.Susp) 30 ml PO DAILY PRN PRN Reason: Constipation Melatonin (Melatonin 3 Mg Tablet) 6 mg PO BEDTIME PRN PRN Reason: Insomnia Last Admin: 10/27/24 20:18 Dose: 6 mg Documented By: REED Metoprolol Succinate (Metoprolol Succinate Er 50 Mg Tab.Er.24h) 50 mg PO BID ON [facility]; Protocol Last Admin: 10/28/24 08:07 Dose: 50 mg Documented By: CLIFFORD Naloxone HCl (Naloxone Hcl 0.4 Mg/Ml Vial) 0.04 mg IVPUSH Q5M PRN PRN Reason: Excessive sedation or RR < 8 Omeprazole (Omeprazole 20 Mg Capsule.Dr) 20 mg PO DAILY@0630 [facility] Last Admin: 10/28/24 04:59 Dose: 20 mg Documented By: REED Ondansetron HCl (Ondansetron Hcl 4 Mg/2 Ml Vial) 4 mg IVPUSH Q8H PRN PRN Reason: Nausea and Vomiting Oxycodone HCl (Oxycodone Hcl Immed Release 5 Mg Tablet) 5 mg PO Q4H PRN PRN Reason: Pain, Moderate(Pain Scale 4-6) Last Admin: 10/27/24 04:28 Dose: 5 mg Documented By: REED Oxycodone HCl (Oxycodone Hcl Er 10 Mg Tab.Er.12h) 10 mg PO BID [facility] Last Admin: 10/28/24 08:06 Dose: 10 mg Documented By: CLIFFORD Sertraline HCl (Sertraline Hcl 100 Mg Tablet) 200 mg PO DAILY [facility] Last Admin: 10/28/24 08:06 Dose: 200 mg Documented By: CLIFFORD Sodium Chloride (0.9 % Sodium Chloride Flush 3 Ml Syringe) 3 ml IVFLUSH QSHIFT ON [facility] Last Admin: 10/28/24 08:05 Dose: 3 ml Documented By: CLIFFORD Ticagrelor (Ticagrelor 90 Mg Tablet) 90 mg PO BID ON [facility] Last Admin: 10/28/24 08:07 Dose: 90 mg Documented By: CLIFFORD Triamcinolone Acetonide (Triamcinolone Acet 0.1 % Cream 15 Gm Tube) 1 appl TOPICAL DAILY PRN; Protocol PRN Reason: psoriasis Labs 10/28/24 06:17 10/28/24 06:17 Labs: Laboratory Results - last 24 hr 10/27/24 10/28/24 11:00 06:17 MCV 92.4 MCH 31.4 MCHC 34.0 RDW 16.9 H Plt Count 119 L MPV 11.9 Immature Gran % (Auto) 0.6 H Neut % (Auto) 66.2 Lymph % (Auto) 20.4 [place] % (Auto) 10.0 Eos % (Auto) 1.6 Baso % (Auto) 1.2 Lymph # (Auto) 1.0 L [place] # (Auto) 0.5 Eos # (Auto) 0.1 Baso # (Auto) 0.1 Abs Immat Gran (auto) 0.03 Absolute Neuts (auto) 3.3 Absolute Nucleated RBC 0.000 Nucleated RBC % (auto) 0.0 Anion Gap 12 Estim Creat Clear Calc 104.7 Estimated GFR > 60 Fasting Glucose 90 Calcium 8.5 D Blood Type B Positive Antibody Screen NEGATIVE Crossmatch See Detail Assessment and Plan (1) Low blood pressure: Status: Acute (2) CAD (coronary artery disease): Status: Acute Plan Pt is a 74 yo male with PMH HFrEF on entresto, HLD, Hypotension, RA, OA, Depression, GERD, recent [place] and PCI on Brilinta, Psoriasis being seen for medical management status post a left total knee replacement with Dr. Crum. Patient offers no current medical concerns. Patient is aware that blood pressure has been running low, even before surgery, 81/45 to 92/57. Pt states his machine tender is aware. Patient takes caution with preventing change in position too fast as this can cause dizziness patient denies any associated falls or near syncopal episodes. S/p L TKR Plan as per orthopedic surgery Hyponatremia resolved Hypotension CBC trending down. Patient with chronically low blood pressure Hold spironolactone on discharge resumed Entresto and toprol xl to 50 b.i.d. at lower dose Plan for outpatient follow-up with primary machine tender to read titrate as tolerated Low blood pressure due to underlying heart disease, medications not due to sepsis Acute blood loss anemia Due to recent surgery H/H improved. HFrEF No acute exacerbation. No respiratory symptoms Seen by Cardiology with plan for medication adjustment as above CAD with g/o STEMI with PCI SEAMUS to RCA 01/22/2024 Brilinta, aspirin, statin HLD continue Statin RA Leflunomide outpatient Hypothyroidism continue levothyroxine Thank you for allowing us to participate in the care of this patient. Quality Stroke Does the patient have a stroke diagnosis?: No VTE Prior VTE?: No VTE Risk Level:: Surgical - very high VTE Device Contraindication: N/A - Device Ordered VTE Drug Contraindication: N/A - Med Ordered
[2024-10-28 10:03] VITALS: BP 115/66; PULSE 60; O2SAT 97
--- NOTE | 2024-10-28 11:20 | P.DS_ITS ---
DS: Providers Provider Date of Service: 10/28/24 Date of admission: 10/27/24 07:44 Date of discharge: 10/28/24 Primary care physician: Nichelle Quiñones PA-C Consults: 10/26/24 09:40 Consult to Hospitalist Routine Comment: Consulting Provider: [facility] [place] Hospitalists Reason For Exam: Routine medical managment 10/26/24 19:55 Consult to Cardiology Routine Consulting Provider: [facility] [place] Cardiovascular Specialists Reason for consultation: hypotension, optimizing chf meds Has provider been notified: Yes DS: Diagnosis Discharge Diagnosis (1) Low blood pressure: Status: Acute (2) CAD (coronary artery disease): Status: Acute DS: Summary Hospital Course Hospital Course: The patient underwent a successful left total knee arthroplasty, they were transferred to PACU and then to the floor to recover. During their stay, their vitals were stable, afebrile at 97.5. POD H&H was 8.9/25.1 and the patient was transfused 1 unit of pRBC's. The following day, on discharge his h&h had improved to 10.4/30.6. POD 1 they were started on Aspirin 325mg po bid for DVT ppx, they also received Physical Therapy services twice a day. Prior to discharge, their dressing was clean dry and intact, and the plan was to be discharged home with VNA services. Time Attestation Discharge Coordination Time (in mins): 30 Quality: Safe Use of Opioids Does Pt have an Active Cancer Diagnosis on the Problem List?: No Quality: Stroke Does the patient have a stroke diagnosis?: No Physical Exam Vital Signs: Vital Signs: Last Vital Signs Temp 97.1 F 10/28/24 08:24 Pulse 60 10/28/24 10:03 Resp 16 10/28/24 08:24 BP 115/66 10/28/24 10:03 Pulse Ox 97 10/28/24 10:03 O2 Del Method Room Air 10/28/24 08:24 O2 Flow Rate 4 10/26/24 15:30 BMI result Body Mass Index 28.6 Const: General: cooperative, healthy appearing and no acute distress Resp: Effort & Inspection: normal respiratory effort and able to speak in complete sentences Cardio: Rate: regular rate Peripheral pulses: Peripheral pulses 2+ throughout GI: Palpation (GI): Soft to palpation Skin: General skin exam: no rashes or lesions noted Extrem: Other: Left knee Aquacel dressing clean dry and intact. Able to dorsi and plantar flex. Moderate hematoma. Neurovascularly intact DS: Data Data Completed and Pending Pending studies at discharge: Pending at discharge 10/26/24 10:46 Surgical [PTH] Routine Labs on day of discharge: Laboratory Results - last 24 hr 10/27/24 10/28/24 10/28/24 11:00 06:17 06:17 WBC 5.0 RBC 3.31 L D Hgb 10.4 L 10.4 L Hct 30.7 L MCV MCH MCHC RDW Plt Count MPV Immature Gran % (Auto) Neut % (Auto) Lymph % (Auto) [place] % (Auto) Eos % (Auto) Baso % (Auto) Lymph # (Auto) [place] # (Auto) Eos # (Auto) Baso # (Auto) Abs Immat Gran (auto) Absolute Neuts (auto) Absolute Nucleated RBC Nucleated RBC % (auto) Sodium Potassium Chloride Carbon Dioxide Anion Gap BUN Creatinine Estim Creat Clear Calc Estimated GFR Fasting Glucose Calcium Blood Type B Positive Antibody Screen NEGATIVE Crossmatch See Detail 10/28/24 06:17 WBC RBC Hgb Hct 30.6 L D MCV 92.4 MCH 31.4 MCHC 34.0 RDW 16.9 H Plt Count 119 L MPV 11.9 Immature Gran % (Auto) 0.6 H Neut % (Auto) 66.2 Lymph % (Auto) 20.4 [place] % (Auto) 10.0 Eos % (Auto) 1.6 Baso % (Auto) 1.2 Lymph # (Auto) 1.0 L [place] # (Auto) 0.5 Eos # (Auto) 0.1 Baso # (Auto) 0.1 Abs Immat Gran (auto) 0.03 Absolute Neuts (auto) 3.3 Absolute Nucleated RBC 0.000 Nucleated RBC % (auto) 0.0 Sodium 136 Potassium 4.2 Chloride 104 Carbon Dioxide 24 Anion Gap 12 BUN 16 Creatinine 0.70 Estim Creat Clear Calc 104.7 Estimated GFR > 60 Fasting Glucose 90 Calcium 8.5 D Blood Type Antibody Screen Crossmatch Discharge Plan Discharge Anticipated Discharge Date/Time: 10/28/24 11:13 Patient Disposition: Home Health Service Discharge Diagnosis: s/p LTKA Referrals: Hermila Hayward PA-C [Physician Account Receivable Clerk] - 11/10/24 1:00 pm Nichelle Quiñones PA-C [Primary Care Provider] - 1 Week Discharge Medications: New metoprolol succinate 50 mg Tablet Extended Release 24 Hr 50 mg PO BID 30 Days Qty: 60 0RF Protocol: Hold for SBP/HR < HOLD for SBP < : 90 HOLD for HR < : 60 acetaminophen 325 mg Tablet 650 mg PO Q6H PRN (Reason: Pain, Mild 1-3,Fever,Headache) 30 Days Qty: 240 0RF Entresto 49-51 mg Tablet 1 tab PO BID 30 Days Qty: 60 0RF Protocol: Hold for SBP< HOLD for SBP < : 90 aspirin 325 mg Tablet 325 mg PO BID 42 Days Qty: 84 0RF celecoxib 200 mg Capsule 200 mg PO BID 30 Days Qty: 60 0RF docusate sodium 100 mg Capsule 100 mg PO BID 30 Days Qty: 60 0RF oxycodone 5 mg Tablet 5 mg PO Q4H PRN (Reason: Pain, Moderate(Pain Scale 4-6)) 7 Days Qty: 42 0RF Rx Instructions: Partial Fill upon patient request. [facility]ructions .MEDSUPPLY Qty: 1 0RF Rx Instructions: Folding Front wheeled walker duration 99 days leflunomide 10 mg tablet 10 mg PO QAM triamcinolone acetonide 0.1 % cream 1 appl topical DAILY PRN (Reason: psoriasis) spironolactone 25 mg tablet 12.5 mg PO QAM atorvastatin 80 mg tablet 80 mg PO BEDTIME dapagliflozin propanediol [Farxiga] 10 mg tablet 10 mg PO QAM bupropion HCl 150 mg tablet extended release 24 hr 300 mg PO QAM sertraline 100 mg tablet 200 mg PO QAM levothyroxine 50 mcg tablet 50 mcg PO QAM Brilinta 90 mg tablet 90 mg PO BID omeprazole magnesium [Prilosec OTC] 20 mg tablet,delayed release (DR/EC) 20 mg PO QAM fluticasone propionate 50 mcg/actuation spray,suspension 1 spray intranasal QAM Rx Instructions: administer into each nostril Held aspirin 81 mg tablet,delayed release (DR/EC) 81 mg PO QAM Hold Instructions: Resume on 12/09/24. regular dose ASA x 6 weeks then may resume 81mg Discontinued sacubitril-valsartan [Entresto] 97-103 mg tablet 1 tab PO BID metoprolol succinate 50 mg tablet extended release 24 hr 200 mg PO QAM Discharge Orders: Discharge Order (Routine); Ordered 10/28/24 Ordered By: Hermila Hayward Diet: Advance to usual diet Activity on Discharge: Use cane or walker Stand Alone Forms: Patient Portal Discharge page Print Language: Wolof Care Plan Goals: restore fxn to left knee Health Concerns: hypotension - Follow up with Amphibian Crewmember for possible med adjustments Plan of Treatment: Physical Therapy for ROM 0-120, quad strength, gait training. Use walker for ambulation Limit stair climbing, No shower, No tub bath, No driving Continue regular dose aspirin x 6 weeks then may resume low dose aspirin Keep Aquacel dressing clean, dry and intact. Follow up with orthopedics in 2 weeks FOLLOW-UP WITH CARDIOLOGY IN REGARDS TO MEDICATION MANAGEMENT AND HYPOTENSION POST OPERATIVELY Assessment: stable for discharge
--- NOTE | 2024-10-28 11:23 | W.MHC.F2F ---
Service Date Service Date: 10/28/24 Encounter Date of encounter: 11/16/24 Reasons for Services Signs and symptoms assessed: s/p LTKA Pt. is considered homebound due to recent surgery. Unable to drive, poor balance, poor gait mechanics. Reason for physical therapy: home safety and mobility, therapeutic exercises, restore joint function, gait/transfer training and ADL training Homebound: Leaving the home is medically contraindicated at this time without the asist of a device and/or another person due th the listed conditions above and below. Reason homebound: unsteady gait / fall risk, leg weakness, pain with ambulation, pain with transfers, poor balance / fall risk and unable to drive Certification: Based on the above findings, I certify that this patient is confined to the home and needs intermittent retirement care, physical therapy and/or speech therapy, or continues to need occupational therapy. The patient is under my care, and I have initiated the establishment of the plan of care. The patient will be followed by a physician who will periodically review the plan of care. Time Spent With Patient Time: Total time managing care of this patient today ____ minutes.
[2024-10-28 11:38] VITALS: BP 102/62
[2024-10-28] MEDS: oxyCODONE HCl Immed Release 5 MG TABLET PO (11:38)
[2024-10-28] MEDS: Sacubitril/Valsartan 49/51 1 TAB TABLET PO (11:38)
--- NOTE | 2024-10-28 12:15 | MHC.CM.PN ---
PT TO DC HOME TODAY WITH [facility] SISTER TO TRANSPORT
== END 2024-10-28 12:27 | disposition home health service (06) | DRG 470 ==
LOC: HO.SSS 07:44 → HO.S3 07:44
PROVIDERS: Anesthesiology; Physician Assistant; Admitting Provider Orthopaedic Surgery; Visit Provider Orthopaedic Surgery
PROC: 0SRD0J9 Replacement of Left Knee Joint with Synthetic Substitute, Cemented, Open Approach (ICD-10-PCS; CPT 27447; principal; 2024-10-26 09:30)
DX: M17.12 Unilateral primary osteoarthritis, left knee (principal); I50.22 Chronic systolic (congestive) heart failure; E87.1 Hypo-osmolality and hyponatremia; D62 Acute posthemorrhagic anemia; E78.5 Hyperlipidemia, unspecified; I11.0 Hypertensive heart disease with heart failure; E03.9 Hypothyroidism, unspecified; G89.18 Other acute postprocedural pain; I25.10 Atherosclerotic heart disease of native coronary artery without angina pectoris; M06.9 Rheumatoid arthritis, unspecified; I25.5 Ischemic cardiomyopathy; I95.9 Hypotension, unspecified; Z87.891 Personal history of nicotine dependence; I25.2 Old myocardial infarction; Z95.5 Presence of coronary angioplasty implant and graft; Z79.52 Long term (current) use of systemic steroids; Z79.890 Hormone replacement therapy; Z79.899 Other long term (current) drug therapy
CPT/HCPCS: 36415; 73560; 80048; 85014; 85018; 85025; 85027; 86850; 86900; 86901; 86923; 87640; 87641; 88305; 88311; 93005; 97162; 97530; C1713; C1776; J0131; J0665; J0690; J1100; J2003; J2250; J2371; J2405; J2704; J7120; P9016

== ENCOUNTER → 2024-10-27 07:44 | Outpatient (BNV) | payer MEDICARE, OTHER, SELFPAY | PROVIDERS: Admitting Provider Orthopaedic Surgery; Visit Provider Internal Medicine Cardiovascular Disease | DX: I95.9 Hypotension, unspecified (principal); I25.5 Ischemic cardiomyopathy; I25.10 Atherosclerotic heart disease of native coronary artery without angina pectoris | CPT/HCPCS: 99222 ==

== ENCOUNTER 2024-10-31 09:55 | Outpatient (AMB) | payer MEDICARE, OTHER, SELFPAY ==
--- NOTE | 2024-10-31 09:59 | A.OFFPC_ITS ---
Vital Signs 10/31/24 10:00 Height 5 ft 9 in Weight 180 lb 8.937 oz BMI 26.7 BP 130/62 Blood Pressure Location Lt brachial Position Sitting Pulse 60 Pulse Source Pulse Oximeter Temp 97.1 F Temp Source Temporal Artery Scan Pulse Oximetry (%) 96 Oxygen Delivery Method Room Air Intake Visit Reasons: f/u HTN and HLD Intake Note: Patient is here to follow up on HTN, HLD. Pit Slagman Required: No Leaf Size Picker: Not Required per policy Accompanied by: Self / Same As Patient Allergies No Known Allergies Allergy (Verified 10/31/24 10:05) Medication List - Last Reconciled 10/31/24 by Nichelle Quiñones PA-C acetaminophen 650 mg (2 x 325 mg) PO Q6H PRN 30 days aspirin 325 mg PO BID 42 days aspirin 81 mg PO QAM atorvastatin 80 mg PO BEDTIME bupropion HCl XL 300 mg PO QAM celecoxib 200 mg PO BID 30 days dapagliflozin propanediol (Farxiga) 10 mg PO QAM docusate sodium 100 mg PO BID 30 days fluticasone propionate 50 mcg/actuation 1 spray intranasal QAM leflunomide 10 mg PO QAM levothyroxine 50 mcg PO QAM metoprolol succinate ER 50 mg See Protocol PO BID 30 days omeprazole magnesium (Prilosec OTC) 20 mg PO QAM oxycodone 5 mg PO Q4H PRN 7 days sacubitril-valsartan 49-51 mg (Entresto) 1 tab See Protocol PO BID 30 days sertraline 200 mg PO QAM spironolactone 12.5 mg PO QAM ticagrelor (Brilinta) 90 mg PO BID triamcinolone acetonide 0.1% 1 appl topical DAILY PRN walker Folding Front wheeled walker duration 99 days Tobacco use date assessed: 10/31/24 Fall risk assessment: No Falls in past year Last assessed Fall Risk: 10/31/24 Dental Screening Dental Screen Date: 08/03/24 HPI f/u HTN and HLD HPI Details 74-year-old male with past medical histo ry of myocardial infarction, depression, hypothyroid, hypertension, hypercholesterolemia, rheumatoid arthritis and psoriasis last seen 08/2024 coming in for follow up.?In review of the notes, patient recently underwent total knee replacement with [facility] 10/27/2024 and discharged 10/28/2024. Presenting for a follow-up on chronic conditions and after a knee replacement surgery. He reports that the surgical recovery has been smooth without complications, and he is undergoing physical therapy, initially at home and planning for outpatient sessions. His pain management has been effective with medications. His regular blood work results indicate optimal cholesterol levels and no signs of diabetes. His hypertension is stable, and he reports no new episodes of chest pain since his heart surgery. He is also brought in a MOLST form to be completed today [facility] Medical History Anesthesia complication Arthritis GERD (gastroesophageal reflux disease) COVID-19 Elevated cholesterol Rheumatoid arthritis Depression Myocardial infarction Psoriasis Hypothyroid HTN (hypertension) Osteoarthritis CHF (congestive heart failure) Surgical History (Updated 10/31/24 @ 10:58 by Nichelle Quiñones PA-C) Hx of total knee arthroplasty History of esophagogastroduodenoscopy (EGD) H/O colonoscopy Hx of oral surgery S/P coronary artery stent placement Family History Sister Cancer Social History Household Members: Family Household Members Other:: sister Housing: House Are you a primary career based intervention coordinator to a significant other at home: No Do you presently have visiting nurse or other home services: No Alcohol intake: never Comment: COUNTS CORRECT Patient Tobacco Use Status: Former Tobacco user Tobacco use type: Cigarette Years Smoked: 20 e-Cigarette/Vaping Use: Never Used Second Hand Smoke Exposure: Yes service: No Current occupational status: retired Cognitive needs: Yes (cane) Hearing needs: No Vision needs: Yes (Glasses) Questionnaire PHQ-9 Over the last 2 weeks, how often have you been bothered by any of the following problems? 1. Little interest or pleasure in doing things: not at all 2. Feeling down, depressed, or hopeless: not at all 3. Trouble falling or staying asleep, or sleeping too much: not at all 4. Feeling tired or having little energy: not at all 5. Poor appetite or overeating: not at all 6. Feeling bad about yourself - or that you are a failure or have let yourself or your family down: not at all 7. Trouble concentrating on things, such as reading the newspaper or watching television: not at all 8. Moving or speaking so slowly that other people could have noticed. Or the opposite - being so fidgety or restless that you have been moving around a lot more than usual: not at all 9. Thoughts that you would be better off or of hurting yourself in some way: not at all Total score: 0 Depression Screening Interpretation: Negative Depression Screening Done: Yes Source: Developed by Drs. Jordan Londono, Claudia Quezada, Gilberto Bruno and colleagues, with an educational tariq from [employer]. Thrive Questionnaire Date Thrive assessed: 10/27/24 I am a: Patient What is your living situation today?: I have a steady place to live Within the past 12 months, did the food you bought not last and you didn't have the money to get more?: Never true Within the past 12 months, did you worry whether your food would run out before you got money to buy more?: I choose not to answer this question Do you have trouble paying for medicines?: No Do you have trouble getting transportation to medical appointments?: No Do you have trouble paying your heating and electricity bill?: No Do you have trouble taking care of your child, family member or friend?: No Do you have trouble with day-to-day activities such as bathing, preparing meals, shopping, managing finances, etc.?: No Are you currently unemployed and looking for a job?: No Are you interested in more education?: No Please select the resources that you would like help with: None Currently or been in a relationship where the following occur: I choose not to answer THRIVE Score: 0 AUDIT C Alcohol Use Questionnaire (AUDIT-C) 1. How often do you have a drink containing alcohol?: Never Total Score: 0 AUGUSTO-7 AMB Questionnaire AUGUSTO-7 Date AUGUSTO - 7 assessed: 08/03/24 Feeling nervous, anxious, or on edge: 0 = Not at all Not being able to stop or control worryin = Not at all Worrying too much about different things: 0 = Not at all Trouble relaxin = Not at all Being so restless that it is hard to sit still: 0 = Not at all Becoming easily annoyed or irritable: 0 = Not at all Feeling afraid as if something awful might happen: 0 = Not at all Total AUGUSTO-7 score (0-4 normal; 5-9 mild; 10-14 moderate; 15-21 severe): 0 Source: Developed by Drs. Jordan Londono, Claudia Quezada, Gilberto Bruno and colleagues, with an educational tariq from [employer]. Review of Systems Const Denies body aches, Denies chills, Denies fever(s) and Denies poor appetite Eyes Reports no additional complaints Card Denies chest pain, Denies lightheadedness and Denies dyspnea Resp Denies cough and Denies dyspnea GI Denies constipation, Denies diarrhea, Denies nausea and Denies vomiting Reports no additional complaints Musc Details: Postop left knee pain Reports abnormal gait Skin/Breast Reports system reviewed and no additional complaints, except as documented Neuro Reports abnormal gait Psych Reports no additional complaints Physical exam (Primary Care) Tobacco/Smoking Status: Tobacco use Status Tobacco use date assessed 09/06/24 09/06/24 11:39 Patient Tobacco Use Status Former Tobacco user 10/28/24 11:19 Tobacco use type Cigarette 10/10/24 12:17 e-Cigarette/Vaping Use Never Used 09/06/24 11:36 Depression Screening Interpretation: Negative Thrive Assessment: Date of Thrive Assessment Date Thrive assessed 10/27/24 10/27/24 15:59 Currently or been in a relationship where the following occur: I choose not to answer Advance Care Planning discussion: Completed/Scanned Date of discussion: 10/31/24 Who was present: Patient Forms completed: MOLST Time spent: 1-15 minutes, not on file Actual minutes spent: 10 Did not discuss due to Cultural/Spiritual beliefs: No Const General: cooperative, healthy appearing, comfortable and no acute distress Orientation/consciousness: patient oriented x3 HENMT Head: Yes normocephalic Ears: hearing grossly normal bilaterally General nose exam: Normal external nose present Eyes General: appearance normal, both eyes and all related structures Conjunctivae: conjunctivae normal Neck Neck: Yes full ROM and Yes no lymphadenopathy Resp Effort & Inspection: normal respiratory effort Auscultation: clear to auscultation bilaterally, no crackles, no rales, no rhonchi and no wheezes Cardio Rate: regular rate Rhythm: regular rhythm Skin General skin exam: no rashes or lesions noted Neuro General: patient oriented x3 Gait exam (Neuro): Normal gait present Extrem Other: 1+ pitting edema of left ankle. No calf swelling, tenderness, warmth or redness bilaterally General: Yes normal to inspection, Yes full ROM and No edema Psych Affect: normal affect Attitude: cooperative Insight: Good insight present (Psych) Judgement: Good judgement present (Psych) Coding Level of Care Code Est Pt Level 3 (68398) Diagnoses Myocardial infarction I21.9 Hypercholesterolemia E78.00 Hypertension I10 Heart failure I50.9 Status post total knee replacement, left Z96.652 Additional Codes Vital Signs *Quality* - Advance Care Planning discussion: Completed/Scanned ([id number]) Vital Signs *Quality* - Time spent: 1-15 minutes, not on file ([id number]) Assessment & Plan Assessment & Plan (1) Myocardial infarction: Comment: inferoposterior MA 01/21/2024 status post PCI of the distal RCA on 01/22/2024 with daily in the distal RCA extending into the proximal PDA Code(s): I21.9 - Acute myocardial infarction, unspecified Category: Medical Plan: Currently following with [facility] advised to continue on aspirin indefinitely and ticagrelor until January 2025. Continue with aggressive blood pressure management with Entresto and metoprolol, cholesterol management with atorvastatin 80 mg with LDL goal less than 70. Patient was also started on Farxiga for management of heart failure. (2) Hypercholesterolemia: Code(s): E78.00 - Pure hypercholesterolemia, unspecified Category: Medical Plan: Avoid foods that are high in cholesterol such as red meat, fried foods, eggs and baked goods. Triglyceride goal of less than 150 and LDL goal of less than 70. Continue on atorvastatin 80 mg. Last LDL 52 (08/2024) (3) Hypertension: Code(s): I10 - Essential (primary) hypertension Category: Medical Plan: Continue on current blood pressure medication. Avoid salt intake and encourage healthy diet and regular exercise. Per last cardiology note patient to continue on metoprolol and Entresto (4) Heart failure: Code(s): I50.9 - Heart failure, unspecified Category: Medical Plan: As advised by Cardiology, Farxiga 10 mg daily, Entresto added to regimen, spironolactone in the morning encouraged low potassium diet and daily weights. Per last cardiology note plans to discussed implantable AICD device at next visit. Patient has a appointment with Cardiology next month (5) Status post total knee replacement, left: Comment: 10/28/[address] Crum Code(s): Z96.652 - Presence of left artificial knee joint Category: Surgical Plan: Patient has been doing well postoperatively. He denies any symptoms of calf pain, chest pains or shortness of breath. He is ambulating at home with a walker and cane and has had 1 appointment with physical therapy. He does have 1+ pitting edema of the left lower extremity without calf pain tenderness or warmth. He has his 1st postop with orthopedics next week, incision was not checked today due to dressing being in place. Plan Patient brought him MOLST form which was completed in the office today. The patient will continue physical therapy both at home and as an outpatient for recovery after the knee replacement. He will maintain the current medication regimen for pain and manage hypertension and hyperlipidemia effectively noted by recent lab results. Forder Operator follow-up is required to deliberate over possible device implantation. Continuous monitoring for any resurgence of chest pain or similar symptoms is planned. Regular check-ups and lab work will ensure consistent treatment and recovery. This note was constructed using voice recognition software. While every effort has been made to ensure accuracy and production ski repairer, still areas may have been included sometimes these areas may affect the content or meeting of the given symptoms. Total time spent caring for the patient today was 20 minutes. This includes time spent before the visit reviewing the chart, time spent during the visit, and time spent after the visit and documentation. Patient was informed and verbally consented to the use of an ambient scribe for clinic note documentation during this visit.
[2024-10-31 10:00] VITALS: BP 130/62; PULSE 60; TEMP 36.2; O2SAT 96; BMI 26.7
== END 2024-10-31 10:37 | disposition home or self-care (01) ==
LOC: HO.HMCH 09:56
DX: I11.0 Hypertensive heart disease with heart failure (principal); I25.2 Old myocardial infarction; I50.9 Heart failure, unspecified; E78.00 Pure hypercholesterolemia, unspecified; Z96.652 Presence of left artificial knee joint; Z00.00 Encounter for general adult medical examination without abnormal findings

== ENCOUNTER → 2024-10-31 09:55 | Outpatient (BNVA) | payer MEDICARE, OTHER, SELFPAY | DX: I21.9 Acute myocardial infarction, unspecified (principal); E78.00 Pure hypercholesterolemia, unspecified; I11.0 Hypertensive heart disease with heart failure; I50.9 Heart failure, unspecified; Z96.652 Presence of left artificial knee joint | CPT/HCPCS: 99212 ==

== ENCOUNTER 2024-11-10 13:02 | Outpatient (AMB) | payer MEDICARE, OTHER, SELFPAY ==
[2024-11-10 13:08] VITALS: BMI 26.6
--- NOTE | 2024-11-10 13:08 | A.OFFVIS_ITS ---
Vital Signs 11/10/24 13:08 Height 5 ft 9 in Weight 180 lb BMI 26.6 Intake Visit Reasons: 2WK PO: L TKA w/NE 10/26/24 Intake Note: Perez is a 74 year old female male who presents today for a post op appointment for his left total knee arthroplasty 10/26/24 NE. Patient reports he is doing well. He notices that his pain is tolerable. Allergies No Known Allergies Allergy (Verified 11/10/24 13:13) HPI HPI 2WK PO: L TKA w/NE 10/26/24: Details: Mr. Alvarez this is a 74-year-old male who presents to the office today for his 1st postop status post left total knee arthroplasty performed by Dr. Crum on 10/26/2024. Patient states that he has 1 more home session of physical therapy and then will transition to outpatient therapy next week. Overall he is doing quite well. He has minimal discomfort. He has noticed a lump on the lateral aspect of the distal quad which is likely hematoma. She is using a knee sleeve while he presents to the office today but it does appear to be a bit too tight. [facility] Medical History (Updated 11/05/24 @ 00:01 by Background Daemon) CAD (coronary artery disease) Ischemic cardiomyopathy Low blood pressure Anesthesia complication Arthritis GERD (gastroesophageal reflux disease) COVID-19 Elevated cholesterol Rheumatoid arthritis Depression Myocardial infarction Psoriasis Hypothyroid HTN (hypertension) Osteoarthritis CHF (congestive heart failure) Surgical History (Updated 11/05/24 @ 00:01 by Background Daemon) Hx of total knee arthroplasty History of esophagogastroduodenoscopy (EGD) H/O colonoscopy Hx of oral surgery S/P coronary artery stent placement Family History Sister Cancer Social History Household Members: Family Household Members Other:: sister Housing: House Are you a primary medicare coordinator to a significant other at home: No Do you presently have visiting nurse or other home services: No Alcohol intake: never Comment: COUNTS CORRECT Patient Tobacco Use Status: Former Tobacco user Tobacco use type: Cigarette Years Smoked: 20 e-Cigarette/Vaping Use: Never Used Second Hand Smoke Exposure: Yes service: No Current occupational status: retired Cognitive needs: Yes (cane) Hearing needs: No Vision needs: Yes (Glasses) Review of Systems Const All systems reviewed & are unremarkable except as noted in HPI and below Physical Exam Vital Signs: BMI result Body Mass Index 26.6 Const General: cooperative, healthy appearing and no acute distress Resp Effort & Inspection: normal respiratory effort and able to speak in complete sentences Extrem Other: Left knee incision site is clean dry and intact. Cortez intact. No surrounding erythema or drainage. No signs of infection. Range of motion 0- 110. Patient does have a hematoma on the distal lateral aspect of the quad. NVI. Assessment & Plan Assessment & Plan (1) Status post total knee replacement, left: Comment: 10/28/[address] Crum Code(s): Z96.652 - Presence of left artificial knee joint Category: Surgical Plan Mr. Alvarez this is a 74-year-old male who presents to the office today for his 1st postop status post left total knee arthroplasty performed by Dr. Crum on 10/26/2024. Patient states that he has 1 more home session of physical therapy and then will transition to outpatient therapy next week. Overall he is doing quite well. He has minimal discomfort. He has noticed a lump on the lateral aspect of the distal quad which is likely hematoma. She is using a knee sleeve while he presents to the office today but it does appear to be a bit too tight. While the office today, the patient's cortez were removed and Steri-Strips were applied. He will keep the Steri-Strips on for 1 week if they come off beforehand he does not need to replace them if they continue to linger after 1 week he can remove them. He may shower but no tub bath. He will transition to outpatient physical therapy next week. Continue anticoagulation for 6 weeks total postoperatively. In regards to his knee sleeve I did recommend taking a break from this as it appears to be too tight leaving an indentation around the thigh. He will follow up in [address] Crum with x-rays, sooner if needed. Coding Level of Care Code Global (48468) Diagnoses Status post total knee replacement, left Z96.652
== END 2024-11-10 13:43 | disposition home or self-care (01) ==
LOC: HO.HOS 13:03
PROVIDERS: Visit Provider Physician Assistant
DX: Z96.652 Presence of left artificial knee joint (principal)
CPT/HCPCS: 99024

== ENCOUNTER → 2024-11-10 13:02 | Outpatient (BNVA) | payer MEDICARE, OTHER, SELFPAY | PROVIDERS: Visit Provider Physician Assistant | DX: Z47.1 Aftercare following joint replacement surgery (principal); Z96.652 Presence of left artificial knee joint | CPT/HCPCS: 99212 ==

== ENCOUNTER → 2024-11-15 23:59 | Outpatient (BNV) | payer MEDICARE, OTHER, SELFPAY | DX: E78.5 Hyperlipidemia, unspecified (principal); I11.0 Hypertensive heart disease with heart failure; I50.20 Unspecified systolic (congestive) heart failure | CPT/HCPCS: G0180 ==

== ENCOUNTER 2024-12-01 13:29 | Outpatient (AMB) | payer MEDICARE, OTHER, SELFPAY ==
--- NOTE | 2024-12-01 13:32 | MHC.OFFVIS ---
Intake Visit Reasons: 6WK PO: L TKA w/NE 10/26/24 Intake Note: Perez is a 74 year old female male who presents today for a post op appointment about 1 month s/p left total knee arthroplasty 10/26/24. Patient reports that he is doing well with very mild pain. He has some scabbing at the midpoint of the incision, reports no draining. He also has a small palpable mass at the most distal aspect of the incision. He expresses concerns for medication changes operatively and post operatively - he states that there was no consulting with his production maintenance technician and that his production maintenance technician would not have reccomended our decisions. He provided an example of the aspirin being changes. Allergies No Known Allergies Allergy (Verified 12/01/24 13:38) HPI HPI 6WK PO: L TKA w/NE 10/26/24: Details: Perez is a 74 year old female male who presents today for a post op appointment about 1 month s/p left total knee arthroplasty 10/26/24. Patient reports that he is doing well with very mild pain. He has some scabbing at the midpoint of the incision, reports no draining. He also has a small palpable mass at the most distal aspect of the incision. He expresses concerns for medication changes operatively and post operatively - he states that there was no consulting with his production maintenance technician and that his production maintenance technician would not have reccomended our decisions. He provided an example of the aspirin being changes. [facility] Medical History (Updated 11/05/24 @ 00:01 by Background Daemon) CAD (coronary artery disease) Ischemic cardiomyopathy Low blood pressure Anesthesia complication Arthritis GERD (gastroesophageal reflux disease) COVID-19 Elevated cholesterol Rheumatoid arthritis Depression Myocardial infarction Psoriasis Hypothyroid HTN (hypertension) Osteoarthritis CHF (congestive heart failure) Surgical History (Updated 11/05/24 @ 00:01 by Background Daemon) Hx of total knee arthroplasty History of esophagogastroduodenoscopy (EGD) H/O colonoscopy Hx of oral surgery S/P coronary artery stent placement Family History Sister Cancer Social History Household Members: Family Household Members Other:: sister Housing: House Are you a primary care management coordinator to a significant other at home: No Do you presently have visiting nurse or other home services: No Alcohol intake: never Comment: COUNTS CORRECT Patient Tobacco Use Status: Former Tobacco user Tobacco use type: Cigarette Years Smoked: 20 e-Cigarette/Vaping Use: Never Used Second Hand Smoke Exposure: Yes service: No Current occupational status: retired Cognitive needs: Yes (cane) Hearing needs: No Vision needs: Yes (Glasses) Physical Exam Extrem Other: Incision clean dry and intact. 3-125 degrees Assessment & Plan Assessment & Plan (1) Status post total knee replacement, left: Comment: 10/28/[address] Crum Code(s): Z96.652 - Presence of left artificial knee joint Category: Surgical Plan: Six weeks status post left knee replacement. He may discontinue high-dose aspirin and resume his normal medications. Apparently his metoprolol was changed briefly due to hypotension after the surgery and his production maintenance technician at [facility] wondered why he had not been contacted. I reviewed this with him. It seems like he is stable in his medications and he may discontinue aspirin prophylaxis and resume the dosage he was taking prior to surgery. We would like to see him back in 6 weeks. I have recommended he continue working on his range of motion and strengthening exercises. Coding Level of Care Code Global (77247) Diagnoses Status post total knee replacement, left Z96.652
== END 2024-12-01 14:10 | disposition home or self-care (01) ==
LOC: HO.HOS 13:29
PROVIDERS: Visit Provider Orthopaedic Surgery
DX: Z96.652 Presence of left artificial knee joint (principal)
CPT/HCPCS: 99024

== ENCOUNTER → 2024-12-01 13:29 | Outpatient (BNVA) | payer MEDICARE, OTHER, SELFPAY | PROVIDERS: Visit Provider Orthopaedic Surgery | DX: Z47.1 Aftercare following joint replacement surgery (principal); Z96.652 Presence of left artificial knee joint | CPT/HCPCS: 99212 ==

== ENCOUNTER 2024-12-07 09:54 | Outpatient (AMB) | payer MEDICARE, OTHER, SELFPAY ==
--- NOTE | 2024-12-07 10:08 | MHC.PC.OV ---
Vital Signs 12/07/24 10:09 Height 5 ft 9 in Weight 169 lb 2 oz BMI 25.0 BP 110/62 Blood Pressure Location Lt brachial Position Sitting Pulse 69 Pulse Source Pulse Oximeter Temp 97.1 F Temp Source Temporal Artery Scan Pulse Oximetry (%) 96 Oxygen Delivery Method Room Air Intake Visit Reasons: f/u HTN and HLD Intake Note: Patient is here to follow up on HTN, HLD. Cable Hooker Required: No President [employer]: Not Required per policy Accompanied by: Self / Same As Patient Allergies No Known Allergies Allergy (Verified 12/07/24 10:20) Medication List - Last Reconciled 12/07/24 by Nichelle Quiñones PA-C acetaminophen 650 mg (2 x 325 mg) PO Q6H PRN 30 days aspirin 81 mg PO QAM Held on 10/28/24. Instructions: Resume on 12/09/24. regular dose ASA x 6 weeks then may resume 81mg atorvastatin 80 mg PO BEDTIME bupropion HCl XL 300 mg PO QAM dapagliflozin propanediol (Farxiga) 10 mg PO QAM docusate sodium 100 mg PO BID 30 days fluticasone propionate 50 mcg/actuation 1 spray intranasal QAM leflunomide 10 mg PO QAM levothyroxine 50 mcg PO QAM metoprolol succinate ER 100 mg See Protocol PO BID omeprazole magnesium (Prilosec OTC) 20 mg PO QAM sacubitril-valsartan 49-51 mg (Entresto) 1 tab See Protocol PO BID 30 days sertraline 200 mg PO QAM spironolactone 12.5 mg PO QAM ticagrelor (Brilinta) 90 mg PO BID triamcinolone acetonide 0.1% 1 appl topical DAILY PRN walker Folding Front wheeled walker duration 99 days Tobacco use date assessed: 12/07/24 Fall risk assessment: No Falls in past year Last assessed Fall Risk: 12/07/24 Dental Screening Dental Screen Date: 08/03/24 HPI f/u HTN and HLD HPI Details 74-year-old male with past medical history of myocardial infarction, depression, hypothyroid, hypertension, hypercholesterolemia, rheumatoid arthritis and psoriasis last seen 10/2024 coming in for follow up. In review of the notes, patient was seen by Orthopedics s/p left total knee replacement advised to discontinue aspirin and resume normal medications.? Presenting for follow-up on hypertension management and knee surgery recovery. Initially on metoprolol 200 mg, reduced to 50 mg post-surgery, then adjusted to 100 mg by ladle builder. Monitoring blood pressure for further adjustments. Occasional low back pain with shooting pain down the leg, possibly related to piriformis syndrome. No significant impact on daily activities. This has been ongoing for several years. Echocardiogram scheduled for January 13 to assess cardiac function and discuss potential AICD implantation based on results. [facility] Medical History CAD (coronary artery disease) Ischemic cardiomyopathy Low blood pressure Anesthesia complication Arthritis GERD (gastroesophageal reflux disease) COVID-19 Elevated cholesterol Rheumatoid arthritis Depression Myocardial infarction Psoriasis Hypothyroid HTN (hypertension) Osteoarthritis CHF (congestive heart failure) Surgical History Hx of total knee arthroplasty History of esophagogastroduodenoscopy (EGD) H/O colonoscopy Hx of oral surgery S/P coronary artery stent placement Family History Sister Cancer Social History Household Members: Family Household Members Other:: sister Housing: House Are you a primary youth care worker to a significant other at home: No Do you presently have visiting nurse or other home services: No Alcohol intake: never Comment: COUNTS CORRECT Patient Tobacco Use Status: Former Tobacco user Tobacco use type: Cigarette Years Smoked: 20 e-Cigarette/Vaping Use: Never Used Second Hand Smoke Exposure: Yes service: No Current occupational status: retired Cognitive needs: Yes (cane) Hearing needs: No Vision needs: Yes (Glasses) Questionnaire Thrive Questionnaire Date Thrive assessed: 10/27/24 I am a: Patient What is your living situation today?: I have a steady place to live Within the past 12 months, did the food you bought not last and you didn't have the money to get more?: Never true Within the past 12 months, did you worry whether your food would run out before you got money to buy more?: I choose not to answer this question Do you have trouble paying for medicines?: No Do you have trouble getting transportation to medical appointments?: No Do you have trouble paying your heating and electricity bill?: No Do you have trouble taking care of your child, family member or friend?: No Do you have trouble with day-to-day activities such as bathing, preparing meals, shopping, managing finances, etc.?: No Are you currently unemployed and looking for a job?: No Are you interested in more education?: No Please select the resources that you would like help with: None Currently or been in a relationship where the following occur: I choose not to answer THRIVE Score: 0 AUGUSTO-7 AMB Questionnaire AUGUSTO-7 Date AUGUSTO - 7 assessed: 08/03/24 Source: Developed by Drs. Jordan Londono, Claudia Quezada, Gilberto Bruno and colleagues, with an educational tariq from [employer]. Review of Systems Const Denies body aches, Denies chills, Denies fever(s), Denies headache(s) and Denies poor appetite Eyes Reports no additional complaints ENT Denies dysphagia, Denies dizziness, Denies headache(s) and Denies odynophagia Card Denies chest pain, Denies syncope, Denies edema, Denies irregular heart rhythm, Denies lightheadedness and Denies dyspnea Resp Denies cough and Denies dyspnea GI Denies abdominal pain, Denies constipation, Denies dysphagia, Denies diarrhea, Denies nausea, Denies odynophagia and Denies vomiting Reports no additional complaints Musc Reports no additional complaints and Denies abnormal gait Skin/Breast Reports system reviewed and no additional complaints, except as documented Neuro Denies abnormal gait, Denies dizziness, Denies syncope and Denies headache(s) Psych Reports no additional complaints Physical exam (Primary Care) Vital Signs: Last Vital Signs Temp 97.1 F 12/07/24 10:09 Pulse 69 12/07/24 10:09 BP 110/62 12/07/24 10:09 Pulse Ox 96 12/07/24 10:09 Oxygen Delivery Method Room Air 12/07/24 10:09 BMI result Body Mass Index 25.0 Tobacco/Smoking Status: Tobacco use Status Tobacco use date assessed 12/07/24 12/07/24 10:15 Patient Tobacco Use Status Former Tobacco user 12/07/24 10:15 Tobacco use type Cigarette 12/07/24 10:15 e-Cigarette/Vaping Use Never Used 12/07/24 10:15 Thrive Assessment: Date of Thrive Assessment Date Thrive assessed 10/27/24 12/07/24 10:15 Currently or been in a relationship where the following occur: I choose not to answer Const General: cooperative, healthy appearing, comfortable and no acute distress Orientation/consciousness: patient oriented x3 HENMT Head: Yes normocephalic Ears: hearing grossly normal bilaterally General nose exam: Normal external nose present Eyes General: appearance normal, both eyes and all related structures Conjunctivae: conjunctivae normal Neck Neck: Yes full ROM and Yes no lymphadenopathy Resp Effort & Inspection: normal respiratory effort Auscultation: clear to auscultation bilaterally, no crackles, no rales, no rhonchi and no wheezes Cardio Rate: regular rate Rhythm: regular rhythm Skin General skin exam: no rashes or lesions noted Neuro General: patient oriented x3 Gait exam (Neuro): Normal gait present Extrem General: Yes normal to inspection, Yes full ROM and No edema Psych Affect: normal affect Attitude: cooperative Insight: Good insight present (Psych) Judgement: Good judgement present (Psych) Coding Level of Care Code Est Pt Level 3 (40868) Diagnoses Myocardial infarction I21.9 Hypercholesterolemia E78.00 Hypertension I10 Status post total knee replacement, left Z96.652 Heart failure I50.9 Assessment & Plan Assessment & Plan (1) Myocardial infarction: Comment: inferoposterior [place] 01/21/2024 status post PCI of the distal RCA on 01/22/2024 with daily in the distal RCA extending into the proximal PDA Code(s): I21.9 - Acute myocardial infarction, unspecified Category: Medical Plan: Currently following with [facility] advised to continue on aspirin indefinitely and ticagrelor until January 2025. Continue with aggressive blood pressure management with Entresto and metoprolol, cholesterol management with atorvastatin 80 mg with LDL goal less than 70. Patient was also started on Farxiga for management of heart failure. (2) Hypercholesterolemia: Code(s): E78.00 - Pure hypercholesterolemia, unspecified Category: Medical Plan: Avoid foods that are high in cholesterol such as red meat, fried foods, eggs and baked goods. Triglyceride goal of less than 150 and LDL goal of less than 70. Continue on atorvastatin 80 mg. Last LDL 52 (08/2024) (3) Hypertension: Code(s): I10 - Essential (primary) hypertension Category: Medical Plan: Continue on current blood pressure medication. Avoid salt intake and encourage healthy diet and regular exercise. Per last cardiology note patient to continue on metoprolol and Entresto (4) Status post total knee replacement, left: Comment: 10/28/[address] Crum Code(s): Z96.652 - Presence of left artificial knee joint Category: Surgical Plan: Patient has been doing well postoperatively. He works with physical therapy twice weekly and has had about 5 sessions. His range of motion has been improving as well as his pain. He continues to struggle with the strength of his left leg but states it has been improving with physical therapy. Continue to follow up with Orthopedics (5) Heart failure: Code(s): I50.9 - Heart failure, unspecified Category: Medical Plan: As advised by Cardiology, Farxiga 10 mg daily, Entresto added to regimen, spironolactone in the morning encouraged low potassium diet and daily weights. Per patient he has echocardiogram scheduled for January and will discussed implantable AICD after echocardiogram is completed. Recently seen by Cardiology and plan to obtain these notes. Plan This note was constructed using voice recognition software. While every effort has been made to ensure accuracy and senior product analyst, still areas may have been included sometimes these areas may affect the content or meeting of the given symptoms. Total time spent caring for the patient today was 20 minutes. This includes time spent before the visit reviewing the chart, time spent during the visit, and time spent after the visit and documentation. Patient was informed and verbally consented to the use of an ambient scribe for clinic note documentation during this visit. Medications: Changed From metoprolol succinate ER 50 mg See Protocol PO BID 30 days 60 tabs 0RF To metoprolol succinate ER 100 mg See Protocol PO BID
[2024-12-07 10:09] VITALS: BP 110/62; PULSE 69; TEMP 36.2; O2SAT 96; BMI 25.0
== END 2024-12-07 10:37 | disposition home or self-care (01) ==
LOC: HO.HMCH 09:55
DX: I11.0 Hypertensive heart disease with heart failure (principal); I25.2 Old myocardial infarction; I50.9 Heart failure, unspecified; E78.00 Pure hypercholesterolemia, unspecified; Z96.652 Presence of left artificial knee joint

== ENCOUNTER → 2024-12-07 09:54 | Outpatient (BNVA) | payer MEDICARE, OTHER, SELFPAY | DX: I21.9 Acute myocardial infarction, unspecified (principal); E78.00 Pure hypercholesterolemia, unspecified; I11.0 Hypertensive heart disease with heart failure; I50.9 Heart failure, unspecified; Z96.652 Presence of left artificial knee joint; Z87.891 Personal history of nicotine dependence | CPT/HCPCS: 99212 ==

== ENCOUNTER 2024-12-19 11:00 | Outpatient (RCR) | payer MEDICARE, OTHER, SELFPAY ==
--- NOTE | 2024-11-16 10:55 | MHC.PT.EP ---
[facility] [place] Office [place] Office [place] Office [address] Kushal Magdaleno [address] [phone] F: [phone] F: [phone] F: [phone] F: [phone] Physical Therapy Plan of Care Date of Evaluation: 11/16/24 Date of Surgery: 10/26/24 Diagnosis: L TKA Assessment: 74 y/o male s/p L TKA 10/26/[address] Crum. He was d/c home with home PT for 6 visits and has transitioned to cane, but sometimes does not use any assistive device. Reports some difficulty with prolonged walking, and stairs. Examination shows L knee ROM 0-112, decreased L LE strength, mild swelling along anterior knee, incision with steri strips still intact, and impaired gait pattern. Recommend PT 2x/week for 5 weeks to address impairments, implement HEP, and optimize functional mobility. Frequency and Duration: The patient will be seen 2x/week for 5 weeks Short Term Goals: 3 weeks I with HEP Residential Goals: 5 weeks I with HEP and self management of sx Pt will be able to ambulate > 25 min with pain < 3/10 Pt will ascend/ descend stairs in step through pattern with pain < 3/10 Treatment Plan: Modalities to reduce pain, spasms and effusion. Manual therapy to restore motion and function. Therapeutic exercise to improve strength and flexibility. Neuromuscular re-education for posture and balance. Therapeutic activities to return to functional activities of daily living. Electronically signed by: Renee Williamson PT Please sign and return to therapist. Thank you for your referral.
--- NOTE | 2024-12-19 12:25 | MHC.PT.DC ---
[facility] [place] Office [place] Office [place] Office [address] Kushal Magdaleno [address] [phone] F: [phone] F: [phone] F: [phone] F: [phone] Physical Therapy Discharge Report Diagnosis: L TKA 10/26/24 Date of Surgery: 10/26/24 Date of Evaluation: 11/16/24 Date of Discharge: 12/19/24 Treatments to Date: 9 Cancellations to Date: 0 No Shows to Date: 0 Discharge Status: Improved Function Independent with HEP Discharge Summary: Pt has made good progress with PT demonstrating full knee ROM and improved strength. He still continues to have difficulty with ascending/descending stairs in step through pattern however encouraged pt to practice step ups at home on bottom stair. Reviewed HEP and no further questions at this time. Pt reports feeling ready for d/c. Electronically signed by: Renee Williamson PT Please sign and return to therapist. Thank you for your referral.
== END 2024-12-19 12:25 | disposition home or self-care (01) ==
LOC: HO.PT 11:00
PROVIDERS: PCP Physician Assistant; Visit Provider Physician Assistant
DX: Z47.1 Aftercare following joint replacement surgery (principal); Z96.652 Presence of left artificial knee joint
CPT/HCPCS: 97110; 97161; 97530

== ENCOUNTER 2025-01-16 12:41 | Outpatient (AMB) | payer MEDICARE, OTHER, SELFPAY ==
--- NOTE | 2025-01-16 12:43 | A.OFFVIS_ITS ---
Intake Visit Reasons: PO - Left TKA 10/26/24 Intake Note: Perez is a 74 year old male who presents today for a post operative follow up s/p Left TKA 10/26/24. Patient reports that he is doing well, he questions if it normal to have continued swelling of the left knee. Allergies No Known Allergies Allergy (Verified 12/07/24 10:20) HPI HPI PO - Left TKA 10/26/24: Details: Perez is a 74 year old male who presents today for a post operative follow up s/p Left TKA 10/26/24. Patient reports that he is doing well, he questions if it normal to have continued swelling of the left knee. [facility] Medical History CAD (coronary artery disease) Ischemic cardiomyopathy Low blood pressure Anesthesia complication Arthritis GERD (gastroesophageal reflux disease) COVID-19 Elevated cholesterol Rheumatoid arthritis Depression Myocardial infarction Psoriasis Hypothyroid HTN (hypertension) Osteoarthritis CHF (congestive heart failure) Surgical History Hx of total knee arthroplasty History of esophagogastroduodenoscopy (EGD) H/O colonoscopy Hx of oral surgery S/P coronary artery stent placement Family History Sister Cancer Social History Household Members: Family Household Members Other:: sister Housing: House Are you a primary healthcare administrative assistant to a significant other at home: No Do you presently have visiting nurse or other home services: No Alcohol intake: never Comment: COUNTS CORRECT Patient Tobacco Use Status: Former Tobacco user Tobacco use type: Cigarette Years Smoked: 20 e-Cigarette/Vaping Use: Never Used Second Hand Smoke Exposure: Yes service: No Current occupational status: retired Cognitive needs: Yes (cane) Hearing needs: No Vision needs: Yes (Glasses) Physical Exam Extrem Other: inc c/d/i no effusion 0-130 stable to v/v stress Assessment & Plan Assessment & Plan (1) Status post total knee replacement, left: Comment: 10/28/[address] Crum Code(s): Z96.652 - Presence of left artificial knee joint Category: Surgical Plan: Doing well s/p left TKA. Doing great. Will send abx to pharmacy for dental work. f/u 9 mo Medications: New amoxicillin Take 4 caps (2,000 mg) 1 hour prior to dental work 500 mg PO BID 4 caps 0RF dental prophylaxis Coding Level of Care Code Global (34285) Diagnoses Status post total knee replacement, left Z96.652
--- OUTSIDE RECORDS SUMMARY | 2025-01-16 13:04 | XMS_ITS | Clinical Summary ---
Author Organization [facility] Address [address] [place] [phone] Phone Care Team Providers Care Child Care Aide Name Role Phone Pcp, Unknown Primary Care Provider Unavailabl e Social History Tobacco Use Types Packs/Day Years Used Date Smoking Tobacco: Never Assessed Education Answer Date Recorded Are you interested in more education? Not on padmini e 02/03/2024 Are you concerned about learning? Not on file 02/03/2024 No 02/03/2024 No 02/03/2024 Digital Access Answer Date Recorded No 02/03/2024 No 02/03/2024 Reliable internet access at home? Not on file 02/03/2024 Device with a working camera? Not on file Sex and Gender Information Value Date Recorded Sex Assigned at Not on file Legal Sex Male 1:16 PM EDT Gender Identity Not on file Sexual Orientation Not on file Plan of Treatment Health Maintenance Due Date Last Done Comments Adult Td,Tdap Booster 1952 LIPID PANEL 1952 DEPRESSION SCREENING 1964 SMOKING Hx and SMOKELESS TOB ACCO SCREENING 1965 HEPATITIS C SCREENING 1970 COLOGUARD 1997 COLONOSCOPY 1997 COLORECTAL CANCER SCREENING 1997 FIT TEST 1997 FOBT 1997 SIGMOIDOSCOPY 1997 VIRTUAL COLONOSCOPY 1997 PNEUMOCOCCAL VACCINES (50+ y ears) (1 of 1 - PCV) 2002 ZOSTER VACCINES (1 of 2) 2002 COVID-19 VACCINE ( - 2023-2 5 season) 2024 RSV VACCINE (1 - 1-dose 75+ series) 2027 HEPATITIS A VACCINES Aged Out No long er eligible based on patient's age to complete this topic HIB VACCINES Aged Out No longer eligi ble based on patient's age to complete this topic MENINGOCOCCAL VACCINES (ACWY) Aged Out No longer eligible based on patient's age to complete this topic MENINGOCOCCAL VACCINES (B) Aged Out N o longer eligible based on patient's age to complete this topic Medical Devices Not on file Insurance [employer] MEDICARE SUPPLEMENT MEDICARE PART A & B [employer] MEDICARE SUPPLEMENT MEDICARE PART A & B [employer] MEDICARE SUPPLEMENT MEDICARE PART A & B [employer] MEDICARE SUPPLEMENT MEDICARE PART A & B [employer] MEDICARE SUPPLEMENT MEDICARE PART A & B [employer] MEDICARE SUPPLEMENT MEDICARE PART A & B Care Teams Child Care Aide Relationship Specialty Start Date End Date Pcp, Unknown PCP - General 12/28/23 Additional Source Comments The information contained in this document represents components of the legal health record. It is not the complete legal health record.[facility]
== END 2025-01-16 13:29 | disposition home or self-care (01) ==
LOC: HO.HOS 12:42
PROVIDERS: Visit Provider Orthopaedic Surgery
DX: Z96.652 Presence of left artificial knee joint (principal)
CPT/HCPCS: 99024

== ENCOUNTER → 2025-01-16 12:41 | Outpatient (BNVA) | payer MEDICARE, OTHER, SELFPAY | PROVIDERS: Visit Provider Orthopaedic Surgery | DX: Z47.1 Aftercare following joint replacement surgery (principal); Z96.652 Presence of left artificial knee joint | CPT/HCPCS: 99212 ==

== ENCOUNTER 2025-01-20 11:36 | Outpatient (AMB) | payer MEDICARE, OTHER, SELFPAY ==
--- NOTE | 2025-01-20 11:38 | A.OFFVIS_ITS ---
Vital Signs 01/20/25 11:48 Height 5 ft 9 in Weight 171 lb 4.787 oz BMI 25.3 BP 115/62 Blood Pressure Location Lt brachial Position Sitting Pulse 64 Pulse Source Pulse Oximeter Pulse Oximetry (%) 97 Oxygen Delivery Method Room Air Intake Visit Reasons: RA Intake Note: Patient presents for RA follow up. Allergies No Known Allergies Allergy (Verified 01/20/25 11:42) Medication List - Last Reconciled 01/20/25 by Erin Barton MD acetaminophen 650 mg (2 x 325 mg) PO Q6H PRN 30 days amoxicillin 500 mg PO BID amoxicillin 2,000 mg (4 x 500 mg) PO ONCE aspirin 81 mg PO QAM Held on 10/28/24. Instructions: Resume on 12/09/24. regular dose ASA x 6 weeks then may resume 81mg atorvastatin 80 mg PO BEDTIME bupropion HCl XL 300 mg PO QAM dapagliflozin propanediol (Farxiga) 10 mg PO QAM fluticasone propionate 50 mcg/actuation 1 spray intranasal QAM leflunomide 10 mg PO QAM levothyroxine 50 mcg PO QAM metoprolol succinate ER 200 mg PO DAILY omeprazole magnesium (Prilosec OTC) 20 mg PO QAM sacubitril-valsartan 97-103 mg (Entresto) tabs PO sertraline 200 mg PO QAM spironolactone 12.5 mg PO QAM triamcinolone acetonide 0.1% 1 appl topical DAILY PRN HPI Comments Details: Patient is a 74-year-old male with depression, hypothyroidism, hypertension complicated by coronary artery disease status post STEMI with stenting 02/2024, heart failure with reduced ejection fraction, hyperlipidemia, diabetes, polyarticular osteoarthritis, rheumatoid arthritis and psoriasis here today for follow up Interval History: Patient last seen 09/15/24 with me - New patient visit to establish care for RA and PsO - On Leflunomide 10mg daily - In remission, no changes made to medications Today, - On leflunomide 10mg daily - Had left knee replacement 10/2024 - Doing well - No significant complaints Rheumatologic History: Patient diagnosed with RA around 2004 Medications tried: hydroxychloroquine sulfasalazine methotrexate Xeljanz Enbrel - stopped about due to insurance issues Leflunomide since around 2019 PsO - Dx around 2014 - Non biopsy proven - Topical steroids Initial History: Patient recently moved to [place] from [place]. Patient diagnosed with RA around 2004 Medications tried: hydroxychloroquine sulfasalazine methotrexate Xeljanz Enbrel - stopped about due to insurance issues Leflunomide since around 2019 PsO - Dx around 2014 - Non biopsy proven - Topical steroids Today Patient reports he is doing well overall on the leflunomide with no pain Only has intermittent knee pain L>R Previously received steroid and gel injections Last gel 04/2024 Current Rheumatology Medication(s): Leflunomide 10mg daily PFSH Medical History CAD (coronary artery disease) Ischemic cardiomyopathy Low blood pressure Anesthesia complication Arthritis GERD (gastroesophageal reflux disease) COVID-19 Elevated cholesterol Rheumatoid arthritis Depression Myocardial infarction Psoriasis Hypothyroid HTN (hypertension) Osteoarthritis CHF (congestive heart failure) Surgical History Hx of total knee arthroplasty History of esophagogastroduodenoscopy (EGD) H/O colonoscopy Hx of oral surgery S/P coronary artery stent placement Family History Sister Cancer Social History Household Members: Family Household Members Other:: sister Housing: House Are you a primary medical care manager to a significant other at home: No Do you presently have visiting nurse or other home services: No Alcohol intake: never Comment: COUNTS CORRECT Patient Tobacco Use Status: Former Tobacco user Tobacco use type: Cigarette Years Smoked: 20 e-Cigarette/Vaping Use: Never Used Second Hand Smoke Exposure: Yes service: No Current occupational status: retired Cognitive needs: Yes (cane) Hearing needs: No Vision needs: Yes (Glasses) Review of Systems Const Details: Review of Systems Constitutional: Denies fever, chills, weight loss ENT: Denies vision changes, eye pain or eye redness, dental caries, dry mouth GI: Denies nausea, vomiting, diarrhea, abdominal pain, change in BM Pulm: Denies SOB, MCDONOUGH, hemoptysis, wheezing Cards: Denies chest pain, palpitations Skin: Denies Raynaud's, nail changes, photosensitivity, ZONING ASSISTANT: Denies headaches, weakness, paresthesias, recurrent falls MSK: as per HPI All other systems reviewed and are unremarkable except noted above Physical Exam Exam Exam: Vital signs reviewed Physical Examination CONSTITUITIONAL Patient alert and cooperative. Well appearing and in no apparent painful distress MSK Hands * Right Hand: Able to make a fist. No swelling or tenderness to palpation of these joints. * Left Hand: Able to make a fist. No swelling or tenderness to palpation of these joints. * Herbedens nodes noted bilaterally Wrists * Right Wrist: Full ROM. 70 degrees of wrist flexion, 80 degrees of wrist extension. No swelling or TTP * Left Wrist: Full ROM. 70 degrees of wrist flexion, 80 degrees of wrist extension. No swelling or TTP Elbows * Right Elbow: Full ROM. No swelling or TTP. No TTP of the medial and lateral epicondyles * Left Elbow: Full ROM. No swelling or TTP. No TTP of the medial and lateral epicondyles Shoulders * Right shoulder: Full ROM. No swelling noted. No TTP of the AC joint, subacromial bursa or posterior shoulder * Left shoulder: Full ROM. No swelling noted. No TTP of the AC joint, subacromial bursa or posterior shoulder Knees * Right knee: Full ROM. No swelling noted. No TTP of the knee joint lie or pes anserine bursa * Left knee: Full ROM. Swelling noted. TTP of the knee joint line and warmth. No TTP of pes anserine bursa Ankles * Right ankle: Good ankle dorsiflexion and plantar flexion. No swelling. No TTP of the ankle joint * Left ankle: Good ankle dorsiflexion and plantar flexion. No swelling. No TTP of the ankle joint Feet * Right foot: Negative squeeze test * Left foot: Negative squeeze test Tender points? * No tenderness to palpation of the bilateral trapezius, supraspinatus, anterior costochondral junctions, bilateral suboccipital muscle insertions Vital Signs: Last Vital Signs Pulse 64 01/20/25 11:48 BP 115/62 01/20/25 11:48 Pulse Ox 97 01/20/25 11:48 Oxygen Delivery Method Room Air 01/20/25 11:48 BMI result Body Mass Index 25.3 Results Reviewed Results Reviewed: Laboratory Tests 08/16/24 10/28/24 11:09 06:17 WBC 5.0 RBC 3.31 L D Hgb 10.4 L Hct 30.6 L D Plt Count 119 L Sodium 136 Potassium 4.2 Chloride 104 Carbon Dioxide 24 BUN 16 Creatinine 0.70 AST 26 ALT 26 Alkaline Phosphatase 58 Assessment & Plan Assessment & Plan (1) Rheumatoid arthritis: Comment: Patient diagnosed with RA around 2004 Medications tried: hydroxychloroquine sulfasalazine methotrexate Xeljanz Enbrel - stopped about due to insurance issues Leflunomide since around 2019 Code(s): M06.9 - Rheumatoid arthritis, unspecified Category: Medical Qualifiers: Rheumatoid arthritis location: multiple sites Rheumatoid factor presence: with rheumatoid factor Qualified Code(s): M05.79 - Rheumatoid arthritis with rheumatoid factor of multiple sites without organ or systems involvement Plan: #Rheumatoid arthritis Patient is a 74-year-old male with rheumatoid arthritis here today for follow up. Patient is currently in remission on leflunomide 10 mg. Plan - Leflunomide 10mg daily - Labs today: CBC, CMP, ESR, CRP, RF and CCP - RTC 6 months - Labs before visit: CBC, CMP, ESR, CRP (2) Encounter for monitoring leflunomide therapy: Code(s): Z51.81 - Encounter for therapeutic drug level monitoring; Z79.69 - custodial (current) use of other immunomodulators and immunosuppressants Plan: #Long-term leflunomide Discussed with patient the benefits and risks of leflunomide for managing the rheumatic condition Benefits include: - Reduced pain, maintenance of remission and reduction of flares Risks include: - GI upset especially diarrhea, skin rash, cytopenias, hepatotoxicity, weight loss, neuropathy Leflunomide is highly teratogenic. ?Has a very long half-life. ?Needs cholestyramine washout if there is desire for Initiation: ?CBC, BMP, LFTs, hepatitis-B and C serologies every 2-4 weeks for 3 months Monitoring: ?CBC, BMP, LFTs, hepatitis B and C serologies Plan I spent 30 minutes reviewing the record and labs, taking a history, examining the patient, discussing the treatment plan, ordering diagnostic work up and documenting in the medical record Orders: Orders Complete Blood Count Auto Diff 6 Months Z79.899 - Other surgical assistant (current) drug therapy C Reactive Protein 6 Months Z79.899 - Other surgical assistant (current) drug therapy Comprehensive Met. Panel 6 Months Z79.899 - Other penitentiary (current) drug therapy Erythrocyte Sedimentation Rate 6 Months Z79.899 - Other penitentiary (current) drug therapy Coding Level of Care Code Est Pt Level 4 (69175) Diagnoses Rheumatoid arthritis involving multiple sites with positive rheumatoid factor M05.79 Rheumatoid arthritis location: multiple sites Rheumatoid factor presence: with rheumatoid factor Encounter for monitoring leflunomide therapy Z51.81; Z79.69
--- OUTSIDE RECORDS SUMMARY | 2025-01-20 11:39 | XMS_ITS | Clinical Summary ---
Author Organization [facility] Address [address] [place] [id number] Phone Care Team Providers Care Construction Or Leak Gang Laborer Name Role Phone Pcp, Unknown Primary Care [...] topic Medical Devices Not on file Insurance [facility] MEDICARE SUPPLEMENT MEDICARE PART A & B [facility] MEDICARE SUPPLEMENT MEDICARE PART A & B [employer] MEDICARE SUPPLEMENT MEDICARE PART A & B [facility] MEDICARE SUPPLEMENT MEDICARE PART A & B [facility] MEDICARE SUPPLEMENT MEDICARE PART A & B [employer] MEDICARE SUPPLEMENT MEDICARE PART A & B Care Teams Construction Or Leak Gang Laborer Relationship Specialty Start Date End Date Pcp, Unknown PCP - General 12/28/23 Additional Source Comments The information contained in this document represents components of the legal health record. It is not the complete legal health record.[facility]
[2025-01-20 11:48] VITALS: BP 115/62; PULSE 64; O2SAT 97; BMI 25.3
== END 2025-01-20 12:17 | disposition home or self-care (01) ==
LOC: HO.RHES 11:37
PROVIDERS: Visit Provider Student in an Organized Health Care Education/Training Program
DX: M05.79 Rheumatoid arthritis with rheumatoid factor of multiple sites without organ or systems involvement (principal); Z51.81 Encounter for therapeutic drug level monitoring; Z79.69 Long term (current) use of other immunomodulators and immunosuppressants
CPT/HCPCS: 99214

== ENCOUNTER 2025-01-20 11:36 | Outpatient (REF) | payer MEDICARE, OTHER, SELFPAY ==
[2025-01-20 17:49] LABS: MANUAL DIFF FLAG NO
[2025-01-20 18:14] LABS: Alanine Aminotransferase 21 U/L (0-40); Albumin Level 4.4 g/dL (3.5-5.0); Alkaline Phosphatase 68 U/L (39-117); Anion Gap 13 (12-20); Aspartate Amino Transferase 32 U/L (5-37); Blood Urea Nitrogen 15 mg/dL (9-16); Calcium 9.0 mg/dL (8.4-10.2); Carbon Dioxide 26 mmol/L (22-29); Chloride 101 mmol/L (96-108); Estimated Glomerular Filt Rate > 60; Potassium 4.7 mmol/L (3.3-5.1); Sodium 135 mmol/L (135-145); Total Protein 6.5 g/dL (6.5-8.0)
[2025-01-20 18:16] LABS: Hematocrit 38.2 % (42.0-52.0); Hemoglobin 13.3 g/dl (14.0-18.0); Imm Gran Abs Auto 0.02 X10*3/uL (0.00-0.03); Imm Gran Pct Auto 0.4 % (0.0-0.4); Lymphocytes Absolute Auto 0.6 X10*3/uL (1.2-4.9); Mean Corpuscular HGB Conc 34.8 g/dl (31.0-36.0); Mean Corpuscular Hemoglobin 32.2 pg (27.0-33.0); Mean Corpuscular Volume 92.5 fL (80.0-98.0); NRBC Abs Auto 0.000 X10*3/uL (0.0-0.012); NRBC Pct Auto 0.0 /100WBC (0.0-0.2); Platelet Count 115 X10*3/uL (160-400); Red Blood Count 4.13 X10*6/uL (4.60-5.80); White Blood Count 5.1 X10*3/uL (4.8-10.8)
== END 2025-01-20 11:37 | disposition home or self-care (01) ==
LOC: HO.HKASLDS 11:36
PROVIDERS: Visit Provider Student in an Organized Health Care Education/Training Program
DX: M05.79 Rheumatoid arthritis with rheumatoid factor of multiple sites without organ or systems involvement (principal); Z51.81 Encounter for therapeutic drug level monitoring; Z79.69 Long term (current) use of other immunomodulators and immunosuppressants; Z79.899 Other long term (current) drug therapy; Z79.631 Long term (current) use of antimetabolite agent
CPT/HCPCS: 36415; 80053; 85025; 85652; 86140; 86200; 86431; 99212

== ENCOUNTER 2025-03-10 09:30 | Outpatient (AMB) | payer MEDICARE, OTHER, SELFPAY ==
--- NOTE | 2025-03-10 09:32 | MHC.PC.OV ---
Vital Signs 03/10/25 09:33 Height 5 ft 9 in Weight 172 lb 4 oz BMI 25.4 BP 114/80 Blood Pressure Location Lt brachial Position Sitting Pulse 66 Pulse Source Pulse Oximeter Temp 97.1 F Temp Source Temporal Artery Scan Pulse Oximetry (%) 98 Oxygen Delivery Method Room Air Intake Visit Reasons: f/u HTN Allergies No Known Allergies Allergy (Verified 03/10/25 09:35) Medication List - Last Reconciled 03/10/25 by Nichelle Quiñones PA-C acetaminophen 650 mg (2 x 325 mg) PO Q6H PRN 30 days aspirin 81 mg PO QAM Held on 10/28/24. Instructions: Resume on 12/09/24. regular dose ASA x 6 weeks then may resume 81mg atorvastatin 80 mg PO BEDTIME bupropion HCl XL 300 mg PO QAM dapagliflozin propanediol (Farxiga) 10 mg PO QAM fluticasone propionate 50 mcg/actuation 1 spray intranasal QAM leflunomide 10 mg PO QAM levothyroxine 50 mcg PO QAM metoprolol succinate ER 100 mg PO DAILY omeprazole magnesium (Prilosec OTC) 20 mg PO QAM sacubitril-valsartan 97-103 mg (Entresto) tabs PO sertraline 200 mg PO QAM spironolactone 12.5 mg PO QAM triamcinolone acetonide 0.1% 1 appl topical DAILY PRN Tobacco use date assessed: 03/10/25 Fall risk assessment: No Falls in past year Last assessed Fall Risk: 03/10/25 Dental Screening Dental Screen Date: 03/10/25 Did you have a dental visit in the last 12 months?: Yes Did you have a dental problem in the last 6 months where you did not have access to dental care?: No Was dental information given to patient?: Patient has dentist HPI f/u HTN HPI Details 74-year-old male with past medical history of myocardial infarction, depression, hypothyroid, hypertension, hypercholesterolemia, rheumatoid arthritis and psoriasis last seen 11/2024 coming in for follow up. In review of the notes, patient was seen rheumatology 01/2025 for RA continued on Leflunomide and follow up in 6 months. Seen by orthopedics s/p LTKA doing well follow up prn. In review of the notes, patient was seen by Cardiology 03/09/2025 after echocardiogram revealed ejection fraction of 39% with apical, inferior and septal hypokinesis. He also underwent stress test which was submaximal however did not show any ischemia and asymptomatic on the treadmill. Presenting with a follow-up for multiple chronic conditions including osteoarthritis of the knee and cardiomyopathy. The patient has completed physical therapy and continues exercises independently, though less consistently. He was discharged from orthopedics and advised to follow up prn. He was recently seen by cardilogy and had echocardiogram and nuclear stress test completed. The patient has a reduced ejection fraction of 39%, with potential ICD defibrillator placement discussed if ejection fraction decreases further. Aortic aneurysm A CT scan is scheduled to evaluate an enlarged aorta, as previous imaging was inconclusive. Rheumatoid arthritis The patient continues on leflunomide as managed by the security solutions architect. [facility] Medical History CAD (coronary artery disease) Ischemic cardiomyopathy Low blood pressure Anesthesia complication Arthritis GERD (gastroesophageal reflux disease) COVID-19 Elevated cholesterol Rheumatoid arthritis Depression Myocardial infarction Psoriasis Hypothyroid HTN (hypertension) Osteoarthritis CHF (congestive heart failure) Surgical History Hx of total knee arthroplasty History of esophagogastroduodenoscopy (EGD) H/O colonoscopy Hx of oral surgery S/P coronary artery stent placement Family History Sister Cancer Social History Household Members: Family Household Members Other:: sister Housing: House Are you a primary memory care director to a significant other at home: No Do you presently have visiting nurse or other home services: No Alcohol intake: never Comment: COUNTS CORRECT Patient Tobacco Use Status: Former Tobacco user Tobacco use type: Cigarette Years Smoked: 20 e-Cigarette/Vaping Use: Never Used Second Hand Smoke Exposure: Yes service: No Current occupational status: retired Cognitive needs: Yes (cane) Hearing needs: No Vision needs: Yes (Glasses) Questionnaire PHQ-9 Over the last 2 weeks, how often have you been bothered by any of the following problems? 1. Little interest or pleasure in doing things: not at all 2. Feeling down, depressed, or hopeless: not at all 3. Trouble falling or staying asleep, or sleeping too much: not at all 4. Feeling tired or having little energy: not at all 5. Poor appetite or overeating: not at all 6. Feeling bad about yourself - or that you are a failure or have let yourself or your family down: not at all 7. Trouble concentrating on things, such as reading the newspaper or watching television: not at all 8. Moving or speaking so slowly that other people could have noticed. Or the opposite - being so fidgety or restless that you have been moving around a lot more than usual: not at all 9. Thoughts that you would be better off or of hurting yourself in some way: not at all Total score: 0 Depression Screening Interpretation: Negative Depression Screening Done: Yes Source: Developed by Drs. Jordan Londono, Claudia Quezada, Gilberto Bruno and colleagues, with an educational tariq from [employer]. Thrive Questionnaire Date Thrive assessed: 10/27/24 I am a: Patient What is your living situation today?: I have a steady place to live Within the past 12 months, did the food you bought not last and you didn't have the money to get more?: Never true Within the past 12 months, did you worry whether your food would run out before you got money to buy more?: I choose not to answer this question Do you have trouble paying for medicines?: No Do you have trouble getting transportation to medical appointments?: No Do you have trouble paying your heating and electricity bill?: No Do you have trouble taking care of your child, family member or friend?: No Do you have trouble with day-to-day activities such as bathing, preparing meals, shopping, managing finances, etc.?: No Are you currently unemployed and looking for a job?: No Are you interested in more education?: No Please select the resources that you would like help with: None Currently or been in a relationship where the following occur: I choose not to answer THRIVE Score: 0 AUDIT C Alcohol Use Questionnaire (AUDIT-C) 1. How often do you have a drink containing alcohol?: Never 3. How often do you have six or more drinks on one occasion?: Never Total Score: 0 AUGUSTO-7 AMB Questionnaire AUGUSTO-7 Date AUGUSTO - 7 assessed: 08/03/24 Feeling nervous, anxious, or on edge: 0 = Not at all Not being able to stop or control worryin = Not at all Worrying too much about different things: 0 = Not at all Trouble relaxin = Not at all Being so restless that it is hard to sit still: 0 = Not at all Becoming easily annoyed or irritable: 0 = Not at all Feeling afraid as if something awful might happen: 0 = Not at all Total AUGUSTO-7 score (0-4 normal; 5-9 mild; 10-14 moderate; 15-21 severe): 0 Source: Developed by Drs. Jordan Londono, Claudia Quezada, Gilberto Bruno and colleagues, with an educational tariq from [employer]. Review of Systems Const Denies body aches, Denies chills, Denies fever(s), Denies headache(s) and Denies poor appetite Eyes Reports no additional complaints ENT Denies dysphagia, Denies dizziness, Denies headache(s) and Denies odynophagia Card Denies chest pain, Denies syncope, Denies edema, Denies irregular heart rhythm, Denies lightheadedness and Denies dyspnea Resp Denies cough and Denies dyspnea GI Denies abdominal pain, Denies constipation, Denies dysphagia, Denies diarrhea, Denies nausea, Denies odynophagia and Denies vomiting Reports no additional complaints Musc Reports no additional complaints and Denies abnormal gait Skin/Breast Reports system reviewed and no additional complaints, except as documented Neuro Denies abnormal gait, Denies dizziness, Denies syncope and Denies headache(s) Psych Reports no additional complaints Physical exam (Primary Care) Vital Signs: Last Vital Signs Temp 97.1 F 03/10/25 09:33 Pulse 66 03/10/25 09:33 BP 114/80 03/10/25 09:33 Pulse Ox 98 03/10/25 09:33 Oxygen Delivery Method Room Air 03/10/25 09:33 BMI result Body Mass Index 25.4 Tobacco/Smoking Status: Tobacco use Status Tobacco use date assessed 03/10/25 03/10/25 09:37 Patient Tobacco Use Status Former Tobacco user 03/10/25 09:37 Tobacco use type Cigarette 03/10/25 09:37 e-Cigarette/Vaping Use Never Used 03/10/25 09:37 PHQ-9: PHQ-9 Score PHQ-9: Total score 0 03/10/25 09:50 Depression Screening Interpretation: Negative Thrive Assessment: Date of Thrive Assessment Date Thrive assessed 10/27/24 03/10/25 09:37 Currently or been in a relationship where the following occur: I choose not to answer Const General: cooperative, healthy appearing, comfortable and no acute distress Orientation/consciousness: patient oriented x3 HENMT Head: Yes normocephalic Ears: hearing grossly normal bilaterally General nose exam: Normal external nose present Eyes General: appearance normal, both eyes and all related structures Conjunctivae: conjunctivae normal Neck Neck: Yes full ROM and Yes no lymphadenopathy Resp Effort & Inspection: normal respiratory effort Auscultation: clear to auscultation bilaterally, no crackles, no rales, no rhonchi and no wheezes Cardio Rate: regular rate Rhythm: regular rhythm Skin General skin exam: no rashes or lesions noted Neuro General: patient oriented x3 Gait exam (Neuro): Normal gait present Extrem General: Yes normal to inspection, Yes full ROM and No edema Psych Affect: normal affect Attitude: cooperative Insight: Good insight present (Psych) Judgement: Good judgement present (Psych) Coding Level of Care Code Est Pt Level 3 (71741) Diagnoses Myocardial infarction I21.9 Hypercholesterolemia E78.00 Hypertension I10 Status post total knee replacement, left Z96.652 Heart failure I50.9 Assessment & Plan Assessment & Plan (1) Myocardial infarction: Comment: inferoposterior PR 01/21/2024 status post PCI of the distal RCA on 01/22/2024 with daily in the distal RCA extending into the proximal PDA Code(s): I21.9 - Acute myocardial infarction, unspecified Category: Medical Plan: Currently following with [facility] advised to continue on aspirin indefinitely and ticagrelor until January 2025. Continue with aggressive blood pressure management with Entresto and metoprolol, cholesterol management with atorvastatin 80 mg with LDL goal less than 70. PLan to obtain cardiology notes. (2) Hypercholesterolemia: Code(s): E78.00 - Pure hypercholesterolemia, unspecified Category: Medical Plan: Avoid foods that are high in cholesterol such as red meat, fried foods, eggs and baked goods. Triglyceride goal of less than 150 and LDL goal of less than 70. Continue on atorvastatin 80 mg. Last LDL 52 (08/2024). Ordered for repeat blood work. (3) Hypertension: Code(s): I10 - Essential (primary) hypertension Category: Medical Plan: Continue on current blood pressure medication. Avoid salt intake and encourage healthy diet and regular exercise. Per last cardiology note patient to continue on metoprolol and Entresto (4) Status post total knee replacement, left: Comment: 10/28/[address] Crum Code(s): Z96.652 - Presence of left artificial knee joint Category: Surgical Plan: No longer doing PT but does continue with PT exercises at home. (5) Heart failure: Comment: EF 39% on last echo Code(s): I50.9 - Heart failure, unspecified Category: Medical Plan: As advised by Cardiology, Farxiga 10 mg daily, Entresto added to regimen, spironolactone in the morning encouraged low potassium diet and daily weights. Per patient he has echocardiogram in January Plan This note was constructed using voice recognition software. While every effort has been made to ensure accuracy and transmission superintendent, still areas may have been included sometimes these areas may affect the content or meeting of the given symptoms. Total time spent caring for the patient today was 20 minutes. This includes time spent before the visit reviewing the chart, time spent during the visit, and time spent after the visit and documentation. Patient was informed and verbally consented to the use of an ambient scribe for clinic note documentation during this visit. Orders: Orders Lipid Panel 1 Day E78.00 - Pure hypercholesterolemia, unspecified TSH reflex Free T4 Today E03.9 - Hypothyroidism, unspecified Free T4 (Free Thyroxine) Today E03.9 - Hypothyroidism, unspecified Comprehensive Met. Panel Today I50.9 - Heart failure, unspecified
[2025-03-10 09:33] VITALS: BP 114/80; PULSE 66; TEMP 36.2; O2SAT 98; BMI 25.4
--- OUTSIDE RECORDS SUMMARY | 2025-03-10 10:30 | XMS_ITS | Clinical Summary ---
Author Organization [facility] Address [address] [place] [id number] Phone Care Team Providers Care Button Inspector Name Role Phone Pcp, Unknown Primary Care [...] 2002 ZOSTER VACCINES (1 of 2) 2002 INFLUENZA VACCINE (#1) 2025 COVID-19 VACCINE ( - 2023-2 5 season) 2025 RSV VACCINE (1 - 1-dose 75+ series) [...] topic Medical Devices Not on file Insurance HUMAN MEDICARE SUPPLEMENT MEDICARE PART A & B [facility] MEDICARE SUPPLEMENT MEDICARE PART A & B [employer] MEDICARE SUPPLEMENT MEDICARE PART A & B [facility] MEDICARE SUPPLEMENT MEDICARE PART A & B [facility] MEDICARE SUPPLEMENT MEDICARE PART A & B [employer] MEDICARE SUPPLEMENT MEDICARE PART A & B Care Teams Button Inspector Relationship Specialty Start Date End Date Pcp, Unknown PCP - General 12/28/23 Additional Source Comments The information contained in this document represents components of the legal health record. It is not the complete legal health record.[facility]
== END 2025-03-10 10:02 | disposition home or self-care (01) ==
LOC: HO.HMCH 09:31
DX: I25.2 Old myocardial infarction (principal); I11.0 Hypertensive heart disease with heart failure; I50.9 Heart failure, unspecified; E78.00 Pure hypercholesterolemia, unspecified; Z96.652 Presence of left artificial knee joint

== ENCOUNTER → 2025-03-10 09:30 | Outpatient (BNVA) | payer MEDICARE, OTHER, SELFPAY | DX: I11.0 Hypertensive heart disease with heart failure (principal); I50.9 Heart failure, unspecified; I25.2 Old myocardial infarction; I42.9 Cardiomyopathy, unspecified; E78.00 Pure hypercholesterolemia, unspecified; E03.9 Hypothyroidism, unspecified; Z96.652 Presence of left artificial knee joint | CPT/HCPCS: 96127; 99212 ==

== ENCOUNTER 2025-03-20 13:22 | Outpatient (REF) | payer MEDICARE, OTHER, SELFPAY ==
--- OUTSIDE RECORDS SUMMARY | 2019-12-07 20:00 | XMS_ITS | Continuity of Care Document ---
Author Organization [facility] Address [address] [place] [address] Phone Care Team Providers Care Stereoptician Name Role Phone Aronld Woodward MD Unavailable Unavailable Medications Medication Instructions Dosage Effective Dates (start - stop) Status Comments leflunomide 20 mg tablet 1 tablet daily 0 - Active Advance Directives Directive Yes / No Effective Date File Name No Information Encounters Encounter Description Practice Location Reason(s) For Visit Diagnoses Date Provider Providers Copied on Encounter [facility], [address], [id number], tel:[phone] Polyosteoarthriti s, unspecifiedDisord er involving the immune mechanism, unspecifiedRheuma toid arthritis with rheumatoid factor of multiple sites without organ or systems involvementOther tank terminal gauger (current) drug therapy 0 Crissy Barrett. [address] [place], [facility] [address], [place], [id number] , [place]. tel:[phone] [facility], [address] [facility] [address], [place], [id number], tel:[phone] Rheumatoid arthritis with rheumatoid factor of multiple sites without organ or systems involvementOther tank terminal gauger (current) drug therapyPolyosteoa rthritis, unspecifiedDisord er involving the immune mechanism, unspecified Fe 0 Crissy Barrett. [address] [place], [facility] [address], [place], [place], [id number] , [place]. tel:[phone] [facility], [address], [place], [place], [id number], tel:[phone] [facility] No Information 0 Crissy Barrett. [address], [address], [place], [place], [id number] , [place]. tel: [phone] Family History Family Member Type Diagnosis Age At Onset No Information Payers Payer name Insurance type Covered alliance party ID Authoriza tion(s) No Information Social History Type Description Quantity Date Captured Comments Sex Male Smoking Status No Information Chief Complaint And Reason For Visit No Information Reason For Referral Reason For Referral No Information History Of Present Illness Encounter Date Complaint History Of Prese nt Illness No Information Functional Status Date Functional Assessmen t No Information Instructions Date Instruction Additional Infor mation No Information Assessments Type Assessment Date No Information Patient Care Teams Name Effective Dates (start - stop) Status Members No Information
[2025-03-20 14:40] LABS: Alanine Aminotransferase 19 U/L (0-40); Albumin Level 4.2 g/dL (3.5-5.0); Alkaline Phosphatase 75 U/L (39-117); Anion Gap 9 (12-20); Aspartate Amino Transferase 45 U/L (5-37); Blood Urea Nitrogen 19 mg/dL (9-16); Calcium 8.9 mg/dL (8.4-10.2); Carbon Dioxide 28 mmol/L (22-29); Chloride 104 mmol/L (96-108); Cholesterol 94 mg/dL (<200); Estimated Glomerular Filt Rate > 60; HDL Cholesterol 27 mg/dL (>40); Potassium 4.4 mmol/L (3.3-5.1); Sodium 137 mmol/L (135-145); Total Protein 6.5 g/dL (6.5-8.0); Triglycerides 110 mg/dL (<150)
[2025-03-20 14:47] LABS: Free T4 (Free Thyroxine) 0.72 ng/dL (0.71-1.85)
--- OUTSIDE RECORDS SUMMARY | 2025-03-20 15:47 | XMS_ITS | Clinical Summary ---
Author Organization [facility] Address [address] [place] [id number] Phone Care Team Providers Care Tire Trucker Name Role Phone Pcp, Unknown Primary Care [...] VACCINE (#1) 2025 COVID-19 VACCINE ( - 2024-2 6 season) 2025 RSV VACCINE (1 - 1-dose [...] MEDICARE SUPPLEMENT MEDICARE PART A & B [facility] MEDICARE SUPPLEMENT MEDICARE PART A & B [employer] MEDICARE SUPPLEMENT MEDICARE PART A & B [facility] MEDICARE SUPPLEMENT MEDICARE PART A & B [facility] MEDICARE SUPPLEMENT MEDICARE PART A & B [employer] MEDICARE SUPPLEMENT MEDICARE PART A & B Care Teams Tire Trucker Relationship Specialty Start Date End Date Pcp, Unknown PCP - General 12/28/23 Additional Source Comments The information contained in this document represents components of the legal health record. It is not the complete legal health record.[facility]
== END 2025-03-20 13:23 | disposition home or self-care (01) ==
LOC: HO.LAB 13:22
DX: E03.9 Hypothyroidism, unspecified (principal); I50.9 Heart failure, unspecified; E78.00 Pure hypercholesterolemia, unspecified
CPT/HCPCS: 36415; 80053; 80061; 84439; 84443

== ENCOUNTER 2025-05-08 10:29 | Outpatient (REF) | payer MEDICARE, OTHER, SELFPAY ==
--- OUTSIDE RECORDS SUMMARY | 2025-05-08 13:02 | XMS_ITS | Clinical Summary ---
Author Organization [facility] Address [address] [place] [id number] Phone Care Team Providers Care Tools Programmer Name Role Phone Pcp, Unknown Primary Care [...] Not on file Insurance HUMAN MEDICARE SUPPLEMENT [facility] Address: [place] [address] MEDICARE PART A & B [facility] MEDICARE SUPPLEMENT MEDICARE PART A & B [employer] MEDICARE SUPPLEMENT MEDICARE PART A & B [facility] MEDICARE SUPPLEMENT MEDICARE PART A & B [facility] MEDICARE SUPPLEMENT MEDICARE PART A & B [employer] MEDICARE SUPPLEMENT [facility] Address: [place] [address] MEDICARE PART A & B Care Teams Tools Programmer Relationship Specialty Start Date End Date Pcp, Unknown PCP - General 12/28/23 Additional Source Comments The information contained in this document represents components of the legal health record. It is not the complete legal health record.[facility]
[2025-05-08 14:51] LABS: Free T4 (Free Thyroxine) 0.73 ng/dL (0.71-1.85)
== END 2025-05-08 10:30 | disposition home or self-care (01) ==
LOC: HO.LAB 10:29
DX: Z13.29 Encounter for screening for other suspected endocrine disorder (principal); R79.89 Other specified abnormal findings of blood chemistry
CPT/HCPCS: 36415; 84439; 84443

== ENCOUNTER 2025-05-29 12:52 | Outpatient (REF) | payer MEDICARE, OTHER, SELFPAY ==
--- NOTE | ~2025-05-29 | XR_ITS ---
EXAMINATION: XR KNEE, LEFT CLINICAL INFORMATION: M25.562 - Pain in left knee COMPARISON: X-ray 10/26/2024 TECHNIQUE: Two views of the left knee. AP bilateral knees one view FINDINGS: Left knee: Total knee arthroplasty. Expected position and alignment. No acute fracture. No findings suggest hardware loosening. Possible suprapatellar joint effusion. Right knee: Mild medial compartment arthritis. XR/XR knee LT 3V IMPRESSION: Left knee: Total knee arthroplasty. No acute osseous findings.. Possible suprapatellar joint effusion. Electronically signed by: Herb Rivero MD 05/30/2025 10:28 AM KIRAN
--- OUTSIDE RECORDS SUMMARY | 2025-05-29 18:37 | XMS_ITS | Clinical Summary ---
Author Organization [facility] Address [address] [place] [id number] Phone Care Team Providers Care Fire Engine Pump Operator Name Role Phone Pcp, Unknown Primary Care [...] MEDICARE SUPPLEMENT MEDICARE PART A & B [facility] MEDICARE SUPPLEMENT MEDICARE PART A & B [employer] MEDICARE SUPPLEMENT MEDICARE PART A & B [facility] MEDICARE SUPPLEMENT MEDICARE PART A & B [facility] MEDICARE SUPPLEMENT MEDICARE PART A & B [employer] MEDICARE SUPPLEMENT MEDICARE PART A & B Care Teams Fire Engine Pump Operator Relationship Specialty Start Date End Date Pcp, Unknown PCP - General 12/28/23 Additional Source Comments The information contained in this document represents components of the legal health record. It is not the complete legal health record.[facility]
== END 2025-05-29 12:53 | disposition home or self-care (01) ==
LOC: HO.HOSX 12:52
PROVIDERS: Visit Provider Orthopaedic Surgery
DX: M25.562 Pain in left knee (principal); Z96.652 Presence of left artificial knee joint
CPT/HCPCS: 73562

== ENCOUNTER 2025-05-29 13:26 | Outpatient (AMB) | payer MEDICARE, OTHER, SELFPAY ==
--- NOTE | 2025-05-29 13:29 | MHC.OFFVIS ---
Vital Signs 05/29/25 13:31 Height 5 ft 9 in Weight 152 lb BMI 22.4 Intake Visit Reasons: OV - Left TKA 10/26/24 - Grinding Sensation Intake Note: Perez is a 74 year old male who presents today for a post operative follow up about 7 months s/p Left TKA 10/26/24. Patient reports that the left knee is not painful, but he feels a grinding sensation when standing from a seated position. Allergies No Known Allergies Allergy (Verified 03/17/25 13:57) HPI HPI OV - Left TKA 10/26/24 - Grinding Sensation: Details: Seven months status post left knee replacement. He is doing well. He has no pain. He notes some crepitus with extension and he was curious. [facility] Medical History CAD (coronary artery disease) Ischemic cardiomyopathy Low blood pressure Anesthesia complication Arthritis GERD (gastroesophageal reflux disease) COVID-19 Elevated cholesterol Rheumatoid arthritis Depression Myocardial infarction Psoriasis Hypothyroid HTN (hypertension) Osteoarthritis CHF (congestive heart failure) Surgical History Hx of total knee arthroplasty History of esophagogastroduodenoscopy (EGD) H/O colonoscopy Hx of oral surgery S/P coronary artery stent placement Family History Sister Cancer Social History (System 03/17/25 @ 13:57 by Mari Hdz) Household Members: Family Household Members Other:: sister Housing: House Are you a primary summer child caregiver to a significant other at home: No Do you presently have visiting nurse or other home services: No Alcohol intake: never Comment: COUNTS CORRECT Patient Tobacco Use Status: Former Tobacco user Tobacco use type: Cigarette Years Smoked: 20 e-Cigarette/Vaping Use: Never Used Second Hand Smoke Exposure: Yes service: No Current occupational status: retired Cognitive needs: Yes (cane) Hearing needs: No Vision needs: Yes (Glasses) Physical Exam Exam Exam: Incision clean dry and intact 0-130 degrees motion No effusion Stable arc of motion Audible crepitus with active extension Vital Signs: BMI result Body Mass Index 22.4 Results Reviewed Results Reviewed: I personally reviewed relevant radiographs. Left total knee arthroplasty in expected post operative position with no hardware complications or evidence of loosening Assessment & Plan Assessment & Plan (1) Status post total knee replacement, left: Comment: 10/28/[address] Crum Code(s): Z96.652 - Presence of left artificial knee joint Category: Surgical Plan: Left knee with some painless crepitus which I described to the patient has normal. He can follow up as needed. He is doing well with no pain. Orders: Orders XR knee LT 3V Today M25.562 - Pain in left knee Coding Level of Care Code Est Pt Level 3 (87513) Diagnoses Status post total knee replacement, left Z96.652
[2025-05-29 13:31] VITALS: BMI 22.4
== END 2025-05-29 14:13 | disposition home or self-care (01) ==
LOC: HO.HOS 13:27
PROVIDERS: Visit Provider Orthopaedic Surgery
DX: Z47.89 Encounter for other orthopedic aftercare (principal); Z96.652 Presence of left artificial knee joint
CPT/HCPCS: 99213

== ENCOUNTER → 2025-05-29 13:28 | Outpatient (BNV) | payer MEDICARE, OTHER, SELFPAY | PROVIDERS: Visit Provider Radiology Diagnostic Ultrasound | DX: M25.562 Pain in left knee (principal); Z96.652 Presence of left artificial knee joint | CPT/HCPCS: 73562 ==

== ENCOUNTER 2025-06-06 10:03 | Outpatient (AMB) | payer MEDICARE, OTHER, SELFPAY ==
--- OUTSIDE RECORDS SUMMARY | 2025-06-02 23:59 | XMS_ITS | Continuity of Care Document ---
Author Organization [facility] Address [address] [address]- Care Team Providers Care Gis Scientist Name Role Phone Nichelle Daley Primary Care Physician [phone] Encounter [facility] Date(s): 05/03/25 - 06/02/25 [facility] [address] [place] [id number]- Attending Physician: Jose Neri Admitting Physician: AdmJose whyte Referring Physician: Admtr, [id number] Encounter Type: Triage Allergies, Adverse Reactions, Alerts No Known Allergies Medications aspirin 81 mg oral delayed release tablet = 81 mg, By Mouth, Daily, # 90 tablet, 3 Refills, Maintenance, 07/26/24 8:00:00 AM EST, EC Tablet, [facility], Partial fill upon patient request if the prescription is for a schedule II opioid drug., 175, cm, 07/18/24 9:33:00 EST, Height, 79.5, kg, 02/17/24 9:29:00 EDT, Dry Weight Start Date: 07/26/24 Status: Ordered Medication Dispense Status: Completed Quantity: 90.0 Unit: tablet Total Allowed Fills: 4 Fills Dispensed: 0 atorvastatin 80 mg oral tablet 1 tablet = 80 mg, By Mouth, Daily, # 90 tablet, 3 Refills, Maintenance, 07/26/24 8:01:00 AM EST, Tablet, [facility], Partial fill upon patient request if the prescription is for a schedule II opioid drug., 175, cm, 07/18/24 9:33:00 EST, Height, 79.5, kg, 02/17/24 9:29:00 EDT, Dry Weight Start Date: 07/26/24 Stop Date: 07/21/25 Status: Ordered Medication Dispense Status: Completed Quantity: 90.0 Unit: tablet Total Allowed Fills: 4 Fills Dispensed: 0 buPROPion 150 mg/24 hours (XL) oral tablet, extended release 2 tablet = 300 mg, By Mouth, Daily, 0 Refills, Maintenance, 01/22/24 7:23:00 AM EDT, Partial fill upon patient request if the prescription is for a schedule II opioid drug. Start Date: 01/22/24 Status: Ordered Medication Dispense Status: Completed Total Allowed Fills: 1 Fills Dispensed: 0 Entresto 97 mg-103 mg oral tablet 1 tablet, By Mouth, 2 times a day, # 180 tablet, 2 Refills, Maintenance, 10/14/24 9:59:00 AM EDT, [facility], 90, TAKE ONE TABLET BY MOUTH TWO TIMES A DAY, 175, cm, 07/18/24 9:33:00 EST, Height, 79.5, kg, 02/17/24 9:29:00 EDT, Dry Weight Start Date: 10/14/24 Status: Ordered Medication Dispense Status: Completed Quantity: 180.0 Unit: tablet Total Allowed Fills: 1 Fills Dispensed: 0 Farxiga 10 mg oral tablet 1 tablet, By Mouth, Daily, # 90 tablet, 3 Refills, Maintenance, 10/14/24 9:59:00 AM EDT, [facility], 175, cm, 07/18/24 9:33:00 EST, Height, 79.5, kg, 02/17/24 9:29:00 EDT, Dry Weight Start Date: 10/14/24 Status: Ordered Medication Dispense Status: Completed Quantity: 90.0 Unit: tablet Total Allowed Fills: 1 Fills Dispensed: 0 Flonase = 50 mcg, Daily, As needed, 0 Refills, Maintenance, 11/29/24 8:30:00 AM EDT, Partial fill upon patient request if the prescription is for a schedule II opioid drug. Start Date: 11/29/24 Status: Ordered Medication Dispense Status: Completed Total Allowed Fills: 1 Fills Dispensed: 0 leflunomide 10 mg oral tablet TAKE 1 TABLET BY MOUTH EVERY DAY Start Date: 01/22/24 Status: Ordered Medication Dispense Status: Completed Total Allowed Fills: 1 Fills Dispensed: 0 levothyroxine 0.05 mg oral tablet 0.5 tablet = 25 mcg, 0 Refills, Maintenance, 01/22/24 7:23:00 AM EDT, Partial fill upon patient request if the prescription is for a schedule II opioid drug. Start Date: 01/22/24 Status: Ordered Medication Dispense Status: Completed Total Allowed Fills: 1 Fills Dispensed: 0 Metoprolol Succinate ER 100 mg oral tablet, extended release 100 mg, 1, tablet, By Mouth, Daily, # 90 tablet, Refills 3, Tot. Refills 3, Maintenance, 03/08/25 9:46:00 AM EDT, Route to Pharmacy Electronically, [facility], Partial fill upon patient request if the prescription is for a schedule II opioid drug., 175, cm, 03/08/25 8:50:00 EDT, Height, 79.5, kg, 02/17/24 9:29:00 EDT, Dry Weight Start Date: 03/08/25 Status: Ordered Medication Dispense Status: Completed Quantity: 90.0 Unit: tablet Total Allowed Fills: 4 Fills Dispensed: 0 PriLOSEC OTC 20 mg oral delayed release tablet 1 tablet = 20 mg, By Mouth, Daily, # 60 tablet, 0 Refills, Maintenance, 01/22/24 8:55:00 AM EDT, EC Tablet, Partial fill upon patient request if the prescription is for a schedule II opioid drug. Start Date: 01/22/24 Status: Ordered Medication Dispense Status: Completed Quantity: 60.0 Unit: tablet Total Allowed Fills: 1 Fills Dispensed: 0 sertraline 100 mg oral tablet 2 tablet = 200 mg, By Mouth, Daily, 0 Refills, Maintenance, 01/22/24 7:23:00 AM EDT, Partial fill upon patient request if the prescription is for a schedule II opioid drug. Start Date: 01/22/24 Status: Ordered Medication Dispense Status: Completed Total Allowed Fills: 1 Fills Dispensed: 0 spironolactone 25 mg oral tablet 1, tablet, By Mouth, Daily, # 30 tablet, Refills 10, Maintenance, 12/09/24 7:47:00 AM EDT, Route to Pharmacy Electronically, [facility], 175, cm, 11/29/24 13:09:00 EDT, Height, 79.5, kg, 02/17/24 9:29:00 EDT, Dry Weight Start Date: 12/09/24 Status: Ordered Medication Dispense Status: Completed Quantity: 30.0 Unit: tablet Total Allowed Fills: 1 Fills Dispensed: 0 Social History Social History Type Response Smoking Status Former smoker, quit more than 30 days ago entered on: 05/03/25 Sex Sex Representation Male (finding) Patient Care team information Care Team Personnel Name: Sherley Landeros RN Position: S RN Member Role: Primary Care Nurse Name: Nichelle Daley Position: Reference Physician Member Role: PCP Address: [address] [place] [address] [address] [facility] [place] [address]- Telecom: Name: Rebecca De RN Position: S RN Member Role: Primary Care Nurse Name: Fouzia Dallas RN Position: S RN Member Role: Primary Care Nurse Name: Jamey Rivera RN Position: S RN Member Role: Primary Care Nurse Name: Georgina Swartz RN Position: S RN Member Role: Primary Care Nurse Care Team Related Persons Name: ISIDRAFREDIS PENA Insurance Providers Guarantor name: ALEXANDRE MAHAN Health Plan Information #: 1 Payer: MEDICARE B Payer Identifier: NA Member Number: [id number] Group Number: NA Subscriber Identifier: NA Relationship to Subscriber: self Coverage Type: NA Coverage Verification Date: NA Telecom: NA Address: NA Health Plan Information #: 2 Payer: I10 MEDICARE SUPPL [facility] Payer Identifier: NA Member Number: [id number] Group Number: [id number] Subscriber Identifier: NA Relationship to Subscriber: self Coverage Type: NA Coverage Verification Date: NA Telecom: Address:
--- NOTE | 2025-06-06 10:10 | A.OFFPC_ITS ---
Vital Signs 06/06/25 10:11 Height 5 ft 9 in Weight 176 lb 6 oz BMI 26.0 BP 110/62 Blood Pressure Location Lt brachial Position Sitting Pulse 67 Pulse Source Pulse Oximeter Temp 97.1 F Temp Source Temporal Artery Scan Pulse Oximetry (%) 97 Oxygen Delivery Method Room Air Intake Visit Reasons: annual exam Intake Note: Patient is here today for a physical. Charger Operator Required: No Machine Zipper Trimmer: Not Required per policy Accompanied by: Self / Same As Patient Allergies No Known Allergies Allergy (Verified 06/06/25 10:27) Medication List - Last Reconciled 06/06/25 by Nichelle Quiñones PA-C acetaminophen 650 mg (2 x 325 mg) PO Q6H PRN 30 days aspirin 81 mg PO QAM Held on 10/28/24. Instructions: Resume on 12/09/24. regular dose ASA x 6 weeks then may resume 81mg atorvastatin 80 mg PO BEDTIME bupropion HCl XL 300 mg PO QAM dapagliflozin propanediol (Farxiga) 10 mg PO QAM fluticasone propionate 50 mcg/actuation 1 spray intranasal QAM leflunomide 10 mg PO QAM levothyroxine 50 mcg PO QAM metoprolol succinate ER 100 mg PO DAILY omeprazole magnesium (Prilosec OTC) 20 mg PO QAM sacubitril-valsartan 97-103 mg (Entresto) tabs PO sertraline 200 mg PO QAM spironolactone 12.5 mg PO QAM triamcinolone acetonide 0.1% 1 appl topical DAILY PRN Tobacco use date assessed: 06/06/25 Fall risk assessment: No Falls in past year Last assessed Fall Risk: 06/06/25 Dental Screening Dental Screen Date: 03/10/25 [facility] annual exam HPI Details 75-year-old male with past medical histo ry of myocardial infarction, depression, hypothyroid, hypertension, hypercholesterolemia, rheumatoid arthritis and psoriasis last seen 02/2025 coming in for annual exam. Seen by ortho 05/2025 follow up as needed. Presenting for an annual physical examination. He has a history of depression and anxiety managed with bupropion 300 mg and sertraline 200 mg, which he has been taking for decades and feels are effective. He admits to previously stopping the medications intermittently but is now adherent. The patient reports concerns about droopy eyelids. He follows with cardiology as needed, with his last visit being several months ago. PSA: ordered colonoscopy: 2021 repeat in 10 years vaccines: flu and covid UTD, PCV given today PFSH Medical History CAD (coronary artery disease) Ischemic cardiomyopathy Low blood pressure Anesthesia complication Arthritis GERD (gastroesophageal reflux disease) COVID-19 Elevated cholesterol Rheumatoid arthritis Depression Myocardial infarction Psoriasis Hypothyroid HTN (hypertension) Osteoarthritis CHF (congestive heart failure) Surgical History Hx of total knee arthroplasty History of esophagogastroduodenoscopy (EGD) H/O colonoscopy Hx of oral surgery S/P coronary artery stent placement Family History Sister Cancer Social History Household Members: Family Household Members Other:: sister Housing: House Are you a primary animal care giver to a significant other at home: No Do you presently have visiting nurse or other home services: No Alcohol intake: never Comment: COUNTS CORRECT Patient Tobacco Use Status: Former Tobacco user Tobacco use type: Cigarette Years Smoked: 20 e-Cigarette/Vaping Use: Never Used Second Hand Smoke Exposure: Yes service: No Current occupational status: retired Cognitive needs: Yes (cane) Hearing needs: No Vision needs: Yes (Glasses) Questionnaire PHQ-9 Over the last 2 weeks, how often have you been bothered by any of the following problems? 1. Little interest or pleasure in doing things: not at all 2. Feeling down, depressed, or hopeless: not at all 3. Trouble falling or staying asleep, or sleeping too much: not at all 4. Feeling tired or having little energy: not at all 5. Poor appetite or overeating: not at all 6. Feeling bad about yourself - or that you are a failure or have let yourself or your family down: not at all 7. Trouble concentrating on things, such as reading the newspaper or watching television: not at all 8. Moving or speaking so slowly that other people could have noticed. Or the opposite - being so fidgety or restless that you have been moving around a lot more than usual: not at all 9. Thoughts that you would be better off or of hurting yourself in some way: not at all Total score: 0 Depression Screening Interpretation: Negative Depression Screening Done: Yes Source: Developed by Drs. Jordan Londono, Claudia Quezada, Gilberto Bruno and colleagues, with an educational tariq from [employer]. Thrive Questionnaire Date Thrive assessed: 10/27/24 I am a: Patient What is your living situation today?: I have a steady place to live Within the past 12 months, did the food you bought not last and you didn't have the money to get more?: Never true Within the past 12 months, did you worry whether your food would run out before you got money to buy more?: I choose not to answer this question Do you have trouble paying for medicines?: No Do you have trouble getting transportation to medical appointments?: No Do you have trouble paying your heating and electricity bill?: No Do you have trouble taking care of your child, family member or friend?: No Do you have trouble with day-to-day activities such as bathing, preparing meals, shopping, managing finances, etc.?: No Are you currently unemployed and looking for a job?: No Are you interested in more education?: No Currently or been in a relationship where the following occur: I choose not to answer THRIVE Score: 0 AUGUSTO-7 AMB Questionnaire AUGUSTO-7 Date AUGUSTO - 7 assessed: 08/03/24 Feeling nervous, anxious, or on edge: 0 = Not at all Not being able to stop or control worryin = Not at all Worrying too much about different things: 0 = Not at all Trouble relaxin = Not at all Being so restless that it is hard to sit still: 0 = Not at all Becoming easily annoyed or irritable: 0 = Not at all Feeling afraid as if something awful might happen: 0 = Not at all Total AUGUSTO-7 score (0-4 normal; 5-9 mild; 10-14 moderate; 15-21 severe): 0 Source: Developed by Drs. Jordan Londono, Claudia Quezada, Gilberto Bruno and colleagues, with an educational tariq from [employer]. Review of Systems Const Denies body aches, Denies chills, Denies fever(s), Denies headache(s) and Denies poor appetite Eyes Reports no additional complaints ENT Denies dysphagia, Denies dizziness, Denies headache(s) and Denies odynophagia Card Denies chest pain, Denies syncope, Denies edema, Denies irregular heart rhythm, Denies lightheadedness and Denies dyspnea Resp Denies cough and Denies dyspnea GI Denies abdominal pain, Denies constipation, Denies dysphagia, Denies diarrhea, Denies nausea, Denies odynophagia and Denies vomiting Reports no additional complaints Musc Reports no additional complaints and Denies abnormal gait Skin/Breast Reports system reviewed and no additional complaints, except as documented Neuro Denies abnormal gait, Denies dizziness, Denies syncope and Denies headache(s) Psych Reports no additional complaints Physical exam (Primary Care) Vital Signs: Last Vital Signs Temp 97.1 F 06/06/25 10:11 Pulse 67 06/06/25 10:11 BP 110/62 06/06/25 10:11 Pulse Ox 97 06/06/25 10:11 Oxygen Delivery Method Room Air 06/06/25 10:11 BMI result Body Mass Index 26.0 Tobacco/Smoking Status: Tobacco use Status Tobacco use date assessed 06/06/25 06/06/25 10:15 Patient Tobacco Use Status Former Tobacco user 06/06/25 10:15 Tobacco use type Cigarette 06/06/25 10:15 e-Cigarette/Vaping Use Never Used 06/06/25 10:15 PHQ-9: PHQ-9 Score PHQ-9: Total score 0 06/06/25 10:51 Depression Screening Interpretation: Negative Thrive Assessment: Date of Thrive Assessment Date Thrive assessed 10/27/24 06/06/25 10:15 Currently or been in a relationship where the following occur: I choose not to answer Const General: cooperative, healthy appearing, comfortable and no acute distress Orientation/consciousness: patient oriented x3 HENMT Head: Yes normocephalic Ears: hearing grossly normal bilaterally, external ears normal, TM's normal bilaterally and EAC's normal General nose exam: Normal external nose present Face and sinus: Yes normal facial exam and Yes sinuses nontender Mouth: Normal oral and palatal mucosa present and tongue normal Throat: Yes posterior oropharynx normal Eyes General: appearance normal, both eyes and all related structures Conjunctivae: conjunctivae normal Pupils: Equal, round and reactive pupils present EOM: EOMs intact bilaterally and No Nystagmus present Neck Neck: Yes normal visual inspection, Yes full ROM and Yes no lymphadenopathy Chest Chest palpation & inspection: normal inspection of the chest Resp Effort & Inspection: normal respiratory effort Auscultation: clear to auscultation bilaterally, no crackles, no rales, no rhonchi, no wheezes and breath sounds present Cardio Rate: regular rate Rhythm: regular rhythm Peripheral pulses: radial pulses present and dorsalis pedis present GI Inspection: Yes normal to inspection and No Abdominal wall edema Palpation (GI): Soft to palpation, not firm and nontender Auscultation: normal bowel sounds Rectal Exam - Male: Yes deferred General: Yes no CVA tenderness Back/Spine/Pelvis Back: no CVA tenderness Skin General skin exam: no rashes or lesions noted Neuro General: patient oriented x3 Cranial nerves: Yes Equal, round and reactive pupils present, Yes Midline tongue present, Yes Ability to bilaterally elevate shoulders present and No Nystagmus present Gait exam (Neuro): Normal gait present Extrem General: Yes normal to inspection, Yes full ROM, No no pedal edema and No edema Psych Speech and movement: Normal speech and movement present Affect: normal affect Insight: Good insight present (Psych) Judgement: Good judgement present (Psych) Immunizations pneumoc 20-radha conj-dip cr(PF) 0.5 mL IM syringe Performing Provider: Nichelle Quiñones PA-C [facility] Administered by: ASIA Gibbs on 06/06/25 10:55 Dose Route Admin Location Dispensed Lot Number Expiration Date [facility] Retail Store Assistant 0.5 mL IM Left Deltoid 0.5 mL [id number] 06/15/26 [employer] Total Dispensed Waste 0.5 mL 0 % VIS Given Date VIS Provided VIS Publication Date 06/06/25 Single Vaccine 24 Eligibility Eligibility Date Funding Source Not [facility] Eligible 06/06/25 Private Coding Level of Care Code Est Pt Prev Care >65y(99571) Diagnoses Annual physical exam Z00.00 Myocardial infarction I21.9 Hypercholesterolemia E78.00 Hypertension I10 Status post total knee replacement, left Z96.652 Heart failure I50.9 Depression F32.A Rheumatoid arthritis involving multiple sites with positive rheumatoid factor M05.79 Rheumatoid arthritis location: multiple sites Rheumatoid factor presence: with rheumatoid factor Drooping eyelid H02.409 Assessment & Plan Assessment & Plan (1) Annual physical exam: Code(s): Z00.00 - Encounter for general adult medical examination without abnormal findings Category: Medical Plan: Patient is up to date on all recommended routine screenings and vaccinations for his age. I did order for additional blood work to be completed at patient convenience. Healthy diet and regular exercise is encouraged. Follow up in 6 months or sooner as needed or pending blood work evaluation. (2) Myocardial infarction: Comment: inferoposterior MS 01/21/2024 status post PCI of the distal RCA on 01/22/2024 with daily in the distal RCA extending into the proximal PDA Code(s): I21.9 - Acute myocardial infarction, unspecified Category: Medical Plan: Currently following with [facility] Card[facility] advised to continue on aspirin indefinitely and ticagrelor until January 2025. Continue with aggressive blood pressure management with Entresto and metoprolol, cholesterol management with atorvastatin 80 mg with LDL goal less than 70. (3) Hypercholesterolemia: Code(s): E78.00 - Pure hypercholesterolemia, unspecified Category: Medical Plan: Avoid foods that are high in cholesterol such as red meat, fried foods, eggs and baked goods. Triglyceride goal of less than 150 and LDL goal of less than 70. Continue on atorvastatin 80 mg. Last LDL within goal 02/2025 (4) Hypertension: Code(s): I10 - Essential (primary) hypertension Category: Medical Plan: Continue on current blood pressure medication. Avoid salt intake and encourage healthy diet and regular exercise. Per last cardiology note patient to continue on metoprolol and Entresto (5) Status post total knee replacement, left: Comment: 10/28/[address] Crum Code(s): Z96.652 - Presence of left artificial knee joint Category: Surgical Plan: No longer doing PT but does continue with PT exercises at home. (6) Heart failure: Comment: EF 39% on last echo Code(s): I50.9 - Heart failure, unspecified Category: Medical Plan: As advised by Cardiology, Farxiga 10 mg daily, Entresto added to regimen, spironolactone in the morning encouraged low potassium diet and daily weights. (7) Depression: Code(s): F32.A - Depression, unspecified Category: Medical Plan: Feels well managed on the Sertraline and Wellbutrin at this time. Declines counselor or psych referral this time. (8) Rheumatoid arthritis: Comment: Patient diagnosed with RA around 2004 Medications tried: hydroxychloroquine sulfasalazine methotrexate Xeljanz Enbrel - stopped about due to insurance issues Leflunomide since around 2019 Code(s): M06.9 - Rheumatoid arthritis, unspecified Category: Medical Qualifiers: Rheumatoid arthritis location: multiple sites Rheumatoid factor presence: with rheumatoid factor Qualified Code(s): M05.79 - Rheumatoid arthritis with rheumatoid factor of multiple sites without organ or systems involvement Plan: Continue to follow with rheumatology at this time. (9) Drooping eyelid: Code(s): H02.409 - Unspecified ptosis of unspecified eyelid Category: Medical Plan: Referral was placed to eye doctor today for possible surgical correction. Plan This note was constructed using voice recognition software. While every effort has been made to ensure accuracy and industry segment specialist, still areas may have been included sometimes these areas may affect the content or meeting of the given symptoms. Total time spent caring for the patient today was 30 minutes. This includes time spent before the visit reviewing the chart, time spent during the visit, and time spent after the visit and documentation. Patient was informed and verbally consented to the use of an ambient scribe for clinic note documentation during this visit. Orders: Orders PSA, Ultra Sensitive Today Z12.5 - Encounter for screening for malignant neoplasm of prostate Free T4 (Free Thyroxine) Today E03.9 - Hypothyroidism, unspecified Lipid Panel Today E78.00 - Pure hypercholesterolemia, unspecified, I21.9 - Acute myocardial infarction, unspecified TSH reflex Free T4 Today E03.9 - Hypothyroidism, unspecified Pneumococcal 20 Immunization Today Z23 - Encounter for immunization Referrals Ophthalmology Referral H02.409 - Unspecified ptosis of unspecified eyelid Medications: New bupropion HCl XL 300 mg (2 x 150 mg) PO QAM 180 tabs 0RF sertraline 200 mg (2 x 100 mg) PO QAM 180 tabs 0RF
[2025-06-06 10:11] VITALS: BP 110/62; PULSE 67; TEMP 36.2; O2SAT 97; BMI 26.0
--- OUTSIDE RECORDS SUMMARY | 2025-06-06 11:04 | XMS_ITS | Clinical Summary ---
Author Organization [facility] Address [address] [place] [phone] Phone Care Team Providers Care Stonemason Helper Name Role Phone Pcp, Unknown Primary Care [...] MEDICARE SUPPLEMENT MEDICARE PART A & B [facility] MEDICARE SUPPLEMENT MEDICARE PART A & B [employer] MEDICARE SUPPLEMENT MEDICARE PART A & B [facility] MEDICARE SUPPLEMENT MEDICARE PART A & B [facility] MEDICARE SUPPLEMENT MEDICARE PART A & B [employer] MEDICARE SUPPLEMENT MEDICARE PART A & B Care Teams Stonemason Helper Relationship Specialty Start Date End Date Pcp, Unknown PCP - General 12/28/23 Additional Source Comments The information contained in this document represents components of the legal health record. It is not the complete legal health record.[facility]
== END 2025-06-06 10:57 | disposition home or self-care (01) ==
LOC: HO.HMCH 10:03
DX: Z00.00 Encounter for general adult medical examination without abnormal findings (principal); I50.22 Chronic systolic (congestive) heart failure; M05.79 Rheumatoid arthritis with rheumatoid factor of multiple sites without organ or systems involvement; I10 Essential (primary) hypertension; E78.00 Pure hypercholesterolemia, unspecified; F32.A Depression, unspecified; I25.2 Old myocardial infarction; Z23 Encounter for immunization; Z96.652 Presence of left artificial knee joint

== ENCOUNTER → 2025-06-06 10:03 | Outpatient (BNVA) | payer MEDICARE, OTHER, SELFPAY | DX: Z00.00 Encounter for general adult medical examination without abnormal findings (principal); I21.9 Acute myocardial infarction, unspecified; E78.00 Pure hypercholesterolemia, unspecified; I11.0 Hypertensive heart disease with heart failure; I50.9 Heart failure, unspecified; Z96.652 Presence of left artificial knee joint; F32.A Depression, unspecified; M05.79 Rheumatoid arthritis with rheumatoid factor of multiple sites without organ or systems involvement; H02.409 Unspecified ptosis of unspecified eyelid; Z79.82 Long term (current) use of aspirin; Z23 Encounter for immunization; Z13.31 Encounter for screening for depression | CPT/HCPCS: 90471; 90677; 96127; 99397 ==